=== PATIENT | male | born 1935 | race Caucasian/White ===

== ENCOUNTER 2017-12-07 09:46 | Inpatient (IN) ==
[2017-12-07] MEDS ORDERED: Aspirin 81 MG TAB.CHEW PO ONE (10:07)
--- NOTE | 2017-12-07 10:11 | Emergency Department Note ---
Disposition Clinical Impression: Chest pain Qualifiers: Chest pain type: unspecified Qualified Code(s): R07.9 - Chest pain, unspecified Anemia Qualifiers: Anemia type: unspecified type Qualified Code(s): D64.9 - Anemia, unspecified GI bleed Qualifiers: GI bleed type/associated pathology: unspecified gastrointestinal hemorrhage type Qualified Code(s): K92.2 - Gastrointestinal hemorrhage, unspecified Disposition: Admitted As Inpatient Condition: Fair Referrals: Tyrone Duong MD [Primary Care Provider] - Forms: ED Satisfaction Letter Time of Disposition: 13:45 General Adult HPI - General Chief complaint: ED Shortness of Breath/Dyspnea Stated complaint: Chest Pain/Can't Breathe Time Seen by Provider: 12/07/17 09:50 Source: patient Mode of arrival: ambulatory Limitations: no limitations Nursing Notes Reviewed: Yes Vital Signs Reviewed: Yes - History of Present Illness HPI Narrative: 82-year-old male with a history of CAD status post stents pacemaker presents for evaluation of dyspnea and chest pain. Patient states he has had 2-3 days of worsening shortness of breath. Notes worse with exertion and worse lying back. Patient also notes some chest pressure that started earlier today. Notes to be left-sided with radiation to his left shoulder. Similar to prior heart attack pain. Patient denies any vomiting but does note some nausea. No diaphoresis. Much of the history provided by the family at bedside. Patient was evaluated couple days ago and was sent home on doxycycline as well as steroids. Patient's been taking his medications as instructed. Pain Scale: 0 - Related Data Home Medications Medication Instructions Recorded Confirmed GuaiFENesin ER [Mucinex] 600 mg PO BID PRN 05/26/15 12/07/17 Simvastatin [Zocor] 40 mg PO QPM 05/26/15 12/07/17 Albuterol Sulfate [Proair Hfa] 2 puff IH PRN PRN 10/06/16 12/07/17 Nitroglycerin [Nitrostat] 0.4 mg SL PRN PRN 10/06/16 12/07/17 Aspirin [Lo-Dose Aspirin EC] 81 mg PO DAILY 03/07/17 12/07/17 Esomeprazole Magnesium [Nexium] 40 mg PO DAILY 03/07/17 12/07/17 Fluticasone/Salmeterol [Advair 1 puff IH BID 03/07/17 12/07/17 500-50 Diskus] Rivaroxaban [Xarelto] 20 mg PO DAILY 03/07/17 12/07/17 Enalapril Maleate [Vasotec] 40 mg PO DAILY 05/29/17 12/07/17 Acetaminophen [Tylenol] 500 mg PO Q6HR 11/12/17 12/07/17 Previous Rx's Medication Instructions Recorded Ascorbic Acid [Vitamin C] 500 mg PO DAILY #30 tablet 10/11/17 Ferrous Sulfate 325 mg PO DAILY #30 tablet 10/11/17 Furosemide [Lasix] 20 mg PO Q48H tablet 10/11/17 Lactobacillus [Culturelle] 1 each PO BID #8 cap.sprink 11/13/17 Doxycycline 100 mg PO BID #10 capsule 12/02/17 predniSONE [PredniSONE] 40 mg PO DAILY #10 tablet 12/02/17 Allergies Allergy/AdvReac Type Severity Reaction Status Date / Time naproxen Allergy Swelling Verified 11/10/17 19:20 of Lip/Tongue/Throat aclidinium AdvReac Dizziness Verified 11/10/17 19:20 [From Tudorza Pressair] amlodipine AdvReac Nausea Verified 11/10/17 19:20 fluoxetine AdvReac Hallucinati Verified 11/10/17 19:20 ng lorazepam [From Ativan] AdvReac Nausea Verified 11/10/17 19:20 All systems ED: reviewed and negative except as stated. Constitutional: Denies: fever Cardiovascular: Reports: chest pain Respiratory: Reports: cough. Denies: dyspnea Gastrointestinal: Reports: nausea. Denies: abdominal pain, vomiting Past Medical History - Past Medical History Source: patient, obtained from family Medical history: Reports: COPD, hypertension Surgical history: Reports: coronary bypass (CABG), other Psychiatric history: Reports: anxiety - Social History Smoking Status: Former smoker Smokeless Tobacco Status: No Alcohol use: Reports: none Drug use: Reports: none Physical Exam - General Limitations: no limitations General appearance: alert, in no apparent distress - Head Head exam: atraumatic, normocephalic, normal inspection - Eye Eye exam: Present: normal appearance, PERRL, EOMI - ENT ENT exam: normal exam, normal oropharynx, mucous membranes moist - Neck Neck exam: Present: normal inspection - Chest Chest inspection: Present: normal inspection, symmetric chest wall rise - Respiratory Respiratory exam: Present: wheezes (Upper expiratory), accessory muscle use, prolonged expiratory phase, other (Bilaterally diminished) - Cardiovascular Cardiovascular exam: Present: regular rate, normal rhythm. Absent: systolic murmur - Abdominal Exam Abdominal exam: Present: soft, Non-Tender - Extremities Exam Extremities exam: Present: normal inspection, pedal edema (Trace) - Expanded Lower Extremity Exam Neurovascular/Tendon exam: Present: normal capillary refill - Neurological Exam Neurological exam: Present: alert, oriented X3 - Skin Skin exam: Present: warm, dry, intact, normal color Course Course Narrative: Patient seen and examined. Patient appears to be in moderate discomfort with his work of breathing. Patient will get basic lab work, nitroglycerin, bands as well as chest x-ray. Patient will likely be admission. - Reevaluation(s) Reevaluation #1: Updated on plan of care. Patient will get PCC given Hgb drop and Bedside Positive for occult blood Time: 13:36 Vital Signs Temperature 99.0 F 12/07/17 09:48 Pulse Rate 95 12/07/17 09:48 Respiratory Rate 20 12/07/17 09:48 Blood Pressure 134/58 12/07/17 09:48 O2 Sat by Pulse Oximetry 100 12/07/17 09:48 Temperature 99.0 F 12/07/17 09:48 Pulse Rate 87 12/07/17 13:32 Respiratory Rate 20 12/07/17 13:32 Blood Pressure 94/45 12/07/17 13:32 O2 Sat by Pulse Oximetry 100 12/07/17 13:32 Oxygen Delivery Oxygen Delivery Room Air Medical Decision Making - Lab Data Lab results reviewed: Yes I reviewed the patient's lab results. Result diagrams: 12/07/17 10:54 12/07/17 10:54 Lab Results 12/07/17 12/07/17 12/07/17 Range/Units 10:54 10:54 10:54 WBC 10.3 (4.3-11.1) K/mcL RBC 1.86 L (4.19-5.50) M/mcL Hgb 4.9 L* (12.9-16.9) g/dL Hct 16.5 L (37.5-50.1) % MCV 88.7 (83.0-100.0) fL MCH 26.3 L (28.0-33.3) pg MCHC 29.7 L (31.6-35.5) g/dL RDW 17.6 H (11.5-14.5) % Plt Count 144 (140-400) K/mcL MPV 13.0 H (9.4-12.4) fL Seg Neutrophils % 96.0 % Lymphocytes % 4.0 % Neutrophils # 9.9 H (1.6-8.9) K/mcL Lymphocytes # 0.4 L (0.6-4.6) K/mcL Nucleated RBCs/100 WBC 0.4 H (0) /100 WBC Platelet Estimate Normal (Normal) Hypochromasia Present A (Not Present) Anisocytosis 1+ A (Not Present) PT 33.4 H (9.4-12.1) Seconds INR 3.0 APTT 36.7 H (26.0-36.0) Seconds VBG pH (7.32-7.42) pH Units VBG pCO2 (41-51) mmHg VBG pO2 (25-50) mmHg VBG HCO3 (21-27) mEq/L Sodium (136-145) mEq/L Potassium (3.5-5.1) mEq/L Chloride (98-107) mEq/L Carbon Dioxide (23-29) mEq/L BUN (8-23) mg/dL Creatinine (0.70-1.30) mg/dL Est GFR ( Amer) (> 60) Est GFR (Non-Af Amer) (> 60) BUN/Creatinine Ratio (6-26) Glucose (70-105) mg/dL Calculated Osmolality (280-300) Calcium (8.6-10.3) mg/dL Troponin I (< 0.04) ng/mL B-Natriuretic Peptide 87 (Less than 100) pg/mL Stool Occult Blood (Negative) Blood Type Antibody Screen Crossmatch 12/07/17 12/07/17 12/07/17 Range/Units 10:54 10:54 11:05 WBC (4.3-11.1) K/mcL RBC (4.19-5.50) M/mcL Hgb (12.9-16.9) g/dL Hct (37.5-50.1) % MCV (83.0-100.0) fL MCH (28.0-33.3) pg MCHC (31.6-35.5) g/dL RDW (11.5-14.5) % Plt Count (140-400) K/mcL MPV (9.4-12.4) fL Seg Neutrophils % % Lymphocytes % % Neutrophils # (1.6-8.9) K/mcL Lymphocytes # (0.6-4.6) K/mcL Nucleated RBCs/100 WBC (0) /100 WBC Platelet Estimate (Normal) Hypochromasia (Not Present) Anisocytosis (Not Present) PT (9.4-12.1) Seconds INR APTT (26.0-36.0) Seconds VBG pH 7.44 H (7.32-7.42) pH Units VBG pCO2 35 L (41-51) mmHg VBG pO2 129 H (25-50) mmHg VBG HCO3 24 (21-27) mEq/L Sodium 141 (136-145) mEq/L Potassium 3.8 (3.5-5.1) mEq/L Chloride 107 (98-107) mEq/L Carbon Dioxide 25 (23-29) mEq/L BUN 57 H (8-23) mg/dL Creatinine 1.28 (0.70-1.30) mg/dL Est GFR ( Amer) > 60 (> 60) Est GFR (Non-Af Amer) 54 L (> 60) BUN/Creatinine Ratio 45 H (6-26) Glucose 157 H (70-105) mg/dL Calculated Osmolality 311 H (280-300) Calcium 8.7 (8.6-10.3) mg/dL Troponin I < 0.03 (< 0.04) ng/mL B-Natriuretic Peptide (Less than 100) pg/mL Stool Occult Blood (Negative) Blood Type Antibody Screen Crossmatch 12/07/17 12/07/17 Range/Units 11:45 11:49 WBC (4.3-11.1) K/mcL RBC (4.19-5.50) M/mcL Hgb (12.9-16.9) g/dL Hct (37.5-50.1) % MCV (83.0-100.0) fL MCH (28.0-33.3) pg MCHC (31.6-35.5) g/dL RDW (11.5-14.5) % Plt Count (140-400) K/mcL MPV (9.4-12.4) fL Seg Neutrophils % % Lymphocytes % % Neutrophils # (1.6-8.9) K/mcL Lymphocytes # (0.6-4.6) K/mcL Nucleated RBCs/100 WBC (0) /100 WBC Platelet Estimate (Normal) Hypochromasia (Not Present) Anisocytosis (Not Present) PT (9.4-12.1) Seconds INR APTT (26.0-36.0) Seconds VBG pH (7.32-7.42) pH Units VBG pCO2 (41-51) mmHg VBG pO2 (25-50) mmHg VBG HCO3 (21-27) mEq/L Sodium (136-145) mEq/L Potassium (3.5-5.1) mEq/L Chloride (98-107) mEq/L Carbon Dioxide (23-29) mEq/L BUN (8-23) mg/dL Creatinine (0.70-1.30) mg/dL Est GFR ( Amer) (> 60) Est GFR (Non-Af Amer) (> 60) BUN/Creatinine Ratio (6-26) Glucose (70-105) mg/dL Calculated Osmolality (280-300) Calcium (8.6-10.3) mg/dL Troponin I (< 0.04) ng/mL B-Natriuretic Peptide (Less than 100) pg/mL Stool Occult Blood Negative (Negative) Blood Type O POSITIVE Antibody Screen NEGATIVE Crossmatch See Detail - Radiology Data Radiology results reviewed: Yes I reviewed the patient's radiology results. Chest X-Ray 12/07/17 10:08 IMPRESSION: Mild left basilar opacification with blunting of the left costophrenic angle, which could be related to a pleural effusion. D/ / Germán Calhoun MD / Germán Calhoun MD Interpreting Provider: Germán Calhoun MD - EKG Data EKG #1 EKG attestation: Yes I reviewed and interpreted this EKG. EKG shows normal: sinus rhythm Rate: normal Rhythm: NSR [place]/QRS: normal T wave inversions noted in: II, III, v5, v6 When compared to previous EKG there are: changes noted Interpretation: nonspecific ST-T wave changes S.B.AAmmy - S.Len Situation: Demographics Background: Presenting Complaint Assessment: Vital Signs, Course and respsone to treatment, Patient/Family Expectation Recommendation: Barrier(s) to disposition, Recommendation based on pending studies, treatments, or consults Obdulia Report Given to: Dr. Manas Steiner Repor Time: 13:45 Attestation Statement - Attestation Attestation: I examined this patient and my medical decision-making was reviewed with the Resident Physician. I agree with the documented findings, disposition and treatment plan as described except to the extent set forth below. Patient to ED with shortness of breath and chest pain. Patient states his upper grossly short of breath for the past 4 days. He has been on steroids and doxycycline was prescribed in the ER in [place]. He is getting worse. Today expressed some chest pain into his jaw. This is similar to prior chest pain and is had with MIs. Patient is status post CABG about 10 years ago. Unsure when his last heart catheter was. On examination his lungs are diminished. He is tachypneic. Heart regular. Plan. Cardiac workup. Nebs and steroids. Likely admission. EKG has some new anterolateral ST depressions. Patient with a hemoglobin of 4. He has admitted to dark, tarry stools. Stool Hemoccult sent. Will transfuse. Likely demand ischemia on his EKG. Patient now mildly hypertensive with a systolic blood pressure in the 90s. Blood transfusion starting at this time. Stool Hemoccult reported as negative. I did perform a bedside stool Hemoccult on an old card that is positive. Patient will be given PCC as he has a life-threatening GI bleed and is on Xarelto. 45 minutes of critical care exclusive of separately billed procedures.
[2017-12-07] MEDS ORDERED: Nitroglycerin 1 INCH/GM PACKET TP ONE (10:16)
[2017-12-07] MEDS ORDERED: Ipratropium/Albuterol Neb 3 ML IH ONE (10:17)
[2017-12-07 11:02] LABS: Red Cell Distribution Width 17.6 % (11.5-14.5)
[2017-12-07 11:03] LABS: Hematocrit 16.5 % (37.5-50.1); Mean Corpuscular HGB Conc 29.7 g/dL (31.6-35.5); Mean Corpuscular Hemoglobin 26.3 pg (28.0-33.3); Mean Corpuscular Volume 88.7 fL (83.0-100.0); Nucleated Red Blood Cells 0.4 /100 WBC (0); Platelet Count 144 K/mcL (140-400); Red Blood Count 1.86 M/mcL (4.19-5.50)
[2017-12-07 11:08] LABS: VBG HCO3 24 mEq/L (21-27); VBG PCO2 35 mmHg (41-51); VBG PH 7.44 pH Units (7.32-7.42); VBG PO2 129 mmHg (25-50)
[2017-12-07 11:09] LABS: Prothrombin Time 33.4 Seconds (9.4-12.1)
[2017-12-07 11:11] LABS: Activated Partial Thrombo Time 36.7 Seconds (26.0-36.0)
[2017-12-07 11:35] LABS: BUN/Creatinine Ratio 45 (6-26); Blood Urea Nitrogen 57 mg/dL (8-23); Calcium 8.7 mg/dL (8.6-10.3); Carbon Dioxide 25 mEq/L (23-29); Chloride 107 mEq/L (98-107); Glucose 157 mg/dL (70-105); Osmolality,Calculated 311 (280-300); Potassium 3.8 mEq/L (3.5-5.1); Sodium 141 mEq/L (136-145); eGFR For African Americans > 60 (> 60); eGFR For Non-African Americans 54 (> 60)
[2017-12-07 11:40] LABS: Hemoglobin 4.9 g/dL (12.9-16.9)
[2017-12-07] MEDS ORDERED: Pantoprazole 80 MG in Water for inj. (sterile) 10 ML IVP ONE (12:14)
[2017-12-07 12:23] LABS: Lymphocytes # 0.4 K/mcL (0.6-4.6); Neutrophils # 9.9 K/mcL (1.6-8.9)
[2017-12-07 12:24] LABS: Anisocytosis 1+ (Not Present); Hypochromasia Present (Not Present); Platelet Estimate Normal (Normal)
[2017-12-07] MEDS ORDERED: 0.9 % Sodium Chloride 250 ML ONE ×3 (13:06→23:32)
[2017-12-07] MEDS ORDERED: Furosemide 20 MG/2 ML VIAL IVP ONE ×2 (13:32→20:00)
[2017-12-07 13:57] LABS: Alanine Aminotransferase 11 Units/L (7-52); Albumin 3.2 g/dL (3.5-5.7); Albumin/Globulin Ratio 1.7 (1.1-2.2); Alkaline Phosphatase 42 Units/L (34-104); Aspartate Amino Transferase 8 Units/L (13-39); Bilirubin,Direct 0.1 mg/dL (0.0-0.2); Bilirubin,Indirect 0.3 mg/dL (0.0-1.2); Bilirubin,Total 0.4 mg/dL (0.3-1.0); Globulin 1.9 g/dL (2.4-3.5); Total Protein 5.1 g/dL (6.4-8.9)
[2017-12-07] MEDS ORDERED: ANTI INHIBITOR COAGULANT COMP IV ONE (14:15)
[2017-12-07] MEDS ORDERED: WATER FOR INJ IV ONE (14:15)
[2017-12-07] MEDS ORDERED: *HR* FentaNYL (PF) 100 MCG/2 ML VIAL IVP ONE (16:22)
--- NOTE | 2017-12-07 17:20 | Internal Med History&Physical ---
Date of Encounter: 12/07/17 Time of Encounter: 14:00 Assessment and Plan (1) Acute GI bleeding Current visit: Yes Status: Acute Complains of melena, bedside FOBT was positive, stool was melanotic. He is on anticoagulation with Xarelto for A. fib. We will stop Xarelto. Soft diet tonight. Nothing by mouth past midnight. GI consult. I spoke to gastroenterology, the plan is for upper endoscopy tomorrow. We will start IV Protonix. (2) Coronary artery disease Current visit: Yes Status: Acute Hold aspirin due to GI bleed. Patient is not on a beta reilly. We will provide nitroglycerin when necessary. Qualifiers: Coronary Disease-Associated Artery/Lesion type: bypass graft [place] vs. transplanted heart: [place] heart Associated angina: without angina Qualified Code(s): I25.810 - Atherosclerosis of coronary artery bypass graft(s) without angina pectoris (3) Acute blood loss anemia Current visit: Yes Status: Acute Hemoglobin today is 4.9. Last hemoglobin 10 days ago per his medical record review was 9.6. Transfuse 2 units PRBC in the emergency department. Repeat CBC posttransfusion. Repeat transfusion to maintain hemoglobin above 8. (4) Coagulopathy Current visit: Yes Status: Acute Patient anticoagulated with Xarelto for atrophic relation. We will hold Xarelto. Patient was given PCC in the emergency department to reverse the coagulopathy given active bleed. (5) COPD (chronic obstructive pulmonary disease) Current visit: Yes Status: Acute Inhaled albuterol and ipratropium. Supplemental oxygen. Qualifiers: COPD type: emphysema Emphysema type: unspecified Qualified Code(s): J43.9 - Emphysema, unspecified (6) Chronic respiratory failure with hypoxia Current visit: Yes Status: Acute Oxygen by nasal cannula. (7) DVT prophylaxis Current visit: Yes Status: Acute SCD (8) Hypertension Current visit: No Status: Chronic Hold Vasotec due to risk of hypotension given hypovolemia due to GI bleed. Qualifiers: Hypertension type: essential hypertension Qualified Code(s): I10 - Essential (primary) hypertension Internal Medicine - H&P: HPI Chief complaint: Generalized weakness Admitted From: Emergency Dept Plans for Post Hospital Care: Home History of present illness: Mr. Davidson is a 82 year old male with past medical history significant for hypertension, COPD, chronic hypoxic respiratory failure on home oxygen, CAD status post CABG, atrial fibrillation on chronic anticoagulation who presented to the hospital for shortness of breath. He reports worsening severe shortness of breath for the last 2 days, today he was breathless at rest, worse with exertion. Associated with dizziness which she describes as "my head was on fire ". He also reports black stool that he has been having for months which he thought was normal secondary to iron pills. Denies abdominal pain. He is very hard of hearing and has impaired vision due to macular degeneration. In the emergency department workup revealed a hemoglobin of 4.9. Bedside Hemoccult was positive. On rectal exam stool appeared melanotic. A 10 point review of systems was negative except as stated above. Family history reviewed and noncontributory Social history: Denies tobacco alcohol and drug use, lives at home with family. Past Med Surg Social Fam HX - Past Medical History Medical history: COPD, hypertension Psychiatric history: anxiety - Past Surgical History Surgical History: coronary bypass (CABG), other - Social History Smoking Status: Former smoker Smokeless Tobacco Status: No Alcohol use: none Drug use: none - Family History Father Adopted: No Living Status: Hx Family Cardiac Disorders: Yes (heart attack) Internal Medicine - H&P: Meds GuaiFENesin ER [Mucinex] 600 mg PO BID PRN 05/26/15 [History] Simvastatin [Zocor] 40 mg PO QPM 05/26/15 [History] Albuterol Sulfate [Proair Hfa] 2 puff IH PRN PRN 10/06/16 [History] Nitroglycerin [Nitrostat] 0.4 mg SL PRN PRN 10/06/16 [History] Aspirin [Lo-Dose Aspirin EC] 81 mg PO DAILY 03/07/17 [History] Esomeprazole Magnesium [Nexium] 40 mg PO DAILY 03/07/17 [History] Fluticasone/Salmeterol [Advair 500-50 Diskus] 1 puff IH BID 03/07/17 [History] Rivaroxaban [Xarelto] 20 mg PO DAILY 03/07/17 [History] Enalapril Maleate [Vasotec] 40 mg PO DAILY 05/29/17 [History] Ascorbic Acid [Vitamin C] 500 mg PO DAILY #30 tablet 10/11/17 [Rx] Ferrous Sulfate 325 mg PO DAILY #30 tablet 10/11/17 [Rx] Furosemide [Lasix] 20 mg PO Q48H tablet 10/11/17 [Rx] Acetaminophen [Tylenol] 500 mg PO Q6HR 11/12/17 [History] Lactobacillus [Culturelle] 1 each PO BID #8 cap.sprink 11/13/17 [Rx] Doxycycline 100 mg PO BID #10 capsule 12/02/17 [Rx] predniSONE [PredniSONE] 40 mg PO DAILY #10 tablet 12/02/17 [Rx] 3 Allergy/AdvReac Type Severity Reaction Status Date / Time naproxen Allergy Swelling Verified 11/10/17 19:20 of Lip/Tongue/Throat aclidinium AdvReac Dizziness Verified 11/10/17 19:20 [From Tudorza Pressair] amlodipine AdvReac Nausea Verified 11/10/17 19:20 fluoxetine AdvReac Hallucinati Verified 11/10/17 19:20 ng lorazepam [From Ativan] AdvReac Nausea Verified 11/10/17 19:20 All Systems PM: A 10-system review of systems was performed and is negative for pertinent findings except as documented above in the HPI. - Constitutional Vitals: Temp Pulse Resp BP Pulse Ox 98.1 F 71 20 119/60 100 12/07/17 16:59 12/07/17 16:59 12/07/17 16:59 12/07/17 16:59 12/07/17 16:59 General appearance: Present: A&O X 3, no acute distress - Eye Eye exam: Present: PERRL, conjuntiva pink, sclera anicteric Pupils: Present: PERRL - Neck Neck exam general surgery: Present: supple, trachea midline. Absent: lymphadenopathy - Respiratory Respiratory exam: Present: prolonged expiratory phase, wheezes. Absent: accessory muscle use, rales, rhonchi - Cardiovascular Cardiovascular exam: Present: irregular rhythm, +S1, +S2, systolic murmur, tachycardia. Absent: diastolic murmur, gallop, rubs - GI/Abdominal GI/Abdominal exam: Present: normal bowel sounds, soft, no peritoneal signs. Absent: distended, tenderness - Extremities Exam Extremities exam: Present: warm, radial pulses palpable and symmetrical. Absent : calf tenderness, cyanotic, pedal edema - Neurological Exam Neurological exam: Present: CN II-XII intact, oriented X3, no focal deficits. Absent: pronater drift, facial droop, speech deficit - Skin Skin exam: Present: dry, intact Internal Med - H&P Results - Labs CBC & Chem 7: 12/07/17 10:54 12/07/17 10:54
[2017-12-07] MEDS ORDERED: Naloxone 0.4 MG/ML INJ IVP PRN (17:42)
[2017-12-07] MEDS ORDERED: Acetaminophen 325 MG TABLET PO PRN (17:42)
[2017-12-07] MEDS ORDERED: Nitroglycerin 0.4 MG TAB.SUBL SL PRN (17:58)
[2017-12-07] MEDS ORDERED: Furosemide 20 MG TABLET PO SCH (18:00)
[2017-12-07 18:21] LABS: Basophils % 0.1 %; Hemoglobin 6.4 g/dL (12.9-16.9); Immature Granulocytes % 1.1 % (0-4); Lymphocytes # 1.4 K/mcL (0.6-4.6); Lymphocytes % 12.9 %; Mean Corpuscular HGB Conc 30.5 g/dL (31.6-35.5); Mean Corpuscular Volume 88.6 fL (83.0-100.0); Mean Platelet Volume 13.3 fL (9.4-12.4); Monocytes # 0.6 K/mcL (0.0-1.3); Nucleated Red Blood Cells 0.5 /100 WBC (0); Platelet Count 153 K/mcL (140-400); Red Blood Count 2.37 M/mcL (4.19-5.50); Red Cell Distribution Width 16.9 % (11.5-14.5); Segmented Neutrophils % 80.9 %
[2017-12-07] MEDS: Pantoprazole 40 MG VIAL IVP SCH (19:00)
[2017-12-07] MEDS: Ipratropium/Albuterol Neb 3 ML IH SCH ×2 (20:07→23:27)
[2017-12-07] MEDS: Budesonide/Formoterol 160/4.5 MDI IH SCH (20:07)
[2017-12-07] MEDS ORDERED: Doxycycline 100 MG CAPSULE PO SCH (21:00)
[2017-12-07] MEDS ORDERED: Melatonin 3 MG TABLET PO ONE (21:12)
[2017-12-07 23:29] LABS: Hematocrit 23.8 % (37.5-50.1); Hemoglobin 7.5 g/dL (12.9-16.9)
[2017-12-08] MEDS: Ipratropium/Albuterol Neb 3 ML IH SCH ×6 (04:14→23:12)
[2017-12-08 05:04] LABS: Basophils % 0.1 %; Eosinophils % 0.1 %; Hematocrit 26.6 % (37.5-50.1); Hemoglobin 8.6 g/dL (12.9-16.9); Immature Granulocytes % 0.8 % (0-4); Lymphocytes # 2.5 K/mcL (0.6-4.6); Lymphocytes % 22.5 %; Mean Corpuscular HGB Conc 32.3 g/dL (31.6-35.5); Mean Corpuscular Hemoglobin 28.2 pg (28.0-33.3); Mean Corpuscular Volume 87.2 fL (83.0-100.0); Mean Platelet Volume 12.9 fL (9.4-12.4); Monocytes # 0.7 K/mcL (0.0-1.3); Neutrophils # 7.7 K/mcL (1.6-8.9); Nucleated Red Blood Cells 0.5 /100 WBC (0); Platelet Count 126 K/mcL (140-400); Red Blood Count 3.05 M/mcL (4.19-5.50); Red Cell Distribution Width 15.5 % (11.5-14.5); Segmented Neutrophils % 70.5 %
[2017-12-08 05:14] LABS: Activated Partial Thrombo Time 30.1 Seconds (26.0-36.0); INR 1.3; Prothrombin Time 14.5 Seconds (9.4-12.1)
[2017-12-08] MEDS: Pantoprazole 40 MG VIAL IVP SCH ×2 (05:17→17:11)
[2017-12-08 05:24] LABS: BUN/Creatinine Ratio 34 (6-26); Blood Urea Nitrogen 46 mg/dL (8-23); Calcium 8.6 mg/dL (8.6-10.3); Carbon Dioxide 29 mEq/L (23-29); Chloride 105 mEq/L (98-107); Glucose 101 mg/dL (70-105); Osmolality,Calculated 304 (280-300); Potassium 3.6 mEq/L (3.5-5.1); Sodium 141 mEq/L (136-145); eGFR For African Americans > 60 (> 60); eGFR For Non-African Americans 51 (> 60)
[2017-12-08] MEDS: Budesonide/Formoterol 160/4.5 MDI IH SCH ×2 (08:32→20:22)
--- NOTE | 2017-12-08 10:18 | Electrocardiograph Report ---
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
--- NOTE | 2017-12-08 11:28 | Internal Med Progress Note ---
<John Max - Last Filed: 12/08/17 15:04> Date of Encounter: 12/08/17 Time of Encounter: 11:20 - Assessment and plan (1) Acute GI bleeding Current Visit: Yes Status: Acute Assessment and plan: Reports of melena, bedside FOBT was positive, stool was melanotic. Previously on anticoagulation with Xarelto for A. fib. Holding Xarelto. NPO. GI consulted, plan for EGD today and possible need for colonoscopy. Continue IV Protonix. Continue to monitor H/H, transfuse PRBCs as indicated. (2) Anemia Current Visit: Yes Status: Acute Assessment and plan: Acute blood loss anemia secondary to GI bleed. Recieved 3 units PRBCs. Pending EGD today. See GI bleed for complete plan. Qualifiers: Anemia type: unspecified type Qualified Code(s): D64.9 - Anemia, unspecified (3) COPD (chronic obstructive pulmonary disease) Current Visit: Yes Status: Acute Assessment and plan: Inhaled albuterol and ipratropium. Supplemental oxygen. Qualifiers: COPD type: emphysema Emphysema type: unspecified Qualified Code(s): J43.9 - Emphysema, unspecified (4) Chronic respiratory failure with hypoxia Current Visit: Yes Status: Acute (5) Hypertension Current Visit: No Status: Chronic Assessment and plan: Hold Vasotec due to risk of hypotension given hypovolemia due to GI bleed. Qualifiers: Hypertension type: essential hypertension Qualified Code(s): I10 - Essential (primary) hypertension (6) Coronary artery disease Current Visit: Yes Status: Acute Assessment and plan: Hold aspirin due to GI bleed. Patient is not on a beta reilly. We will provide nitroglycerin when necessary. Qualifiers: Coronary Disease-Associated Artery/Lesion type: bypass graft [place] vs. transplanted heart: [place] heart Associated angina: without angina Qualified Code(s): I25.810 - Atherosclerosis of coronary artery bypass graft(s) without angina pectoris (7) Coagulopathy Current Visit: Yes Status: Acute Assessment and plan: Hold aspirin due to GI bleed. Patient is not on a beta reilly. We will provide nitroglycerin when necessary. (8) DVT prophylaxis Current Visit: Yes Status: Acute Assessment and plan: SCDs - Time Spent With Patient 25 - 35 minutes - Subjective Interval history: Patient notes shortness of breath, stating he has history of COPD, on 2L of continuous home oxygen. Vitals stable with O2 saturation of 97%. Patient wondering if/when he will receive possible scope for his GI bleeding. Denies abdominal pain or chest pain. - Constitutional Vitals: Temp Pulse Resp BP Pulse Ox 97.8 F 79 16 132/66 99 12/08/17 07:00 12/08/17 07:00 12/08/17 08:34 12/08/17 07:00 12/08/17 08:34 General appearance: Present: cooperative, A&O X 3, no acute distress, answers questions appropriately - Head Head exam: Present: atraumatic, normocephalic - Eye Eye exam: Present: EOMI, conjuntiva pink, sclera anicteric - Neck Neck exam general surgery: Present: supple, trachea midline - Respiratory Respiratory exam: Present: wheezes. Absent: accessory muscle use, rales, rhonchi - Cardiovascular Cardiovascular exam: Present: RRR, +S1, +S2. Absent: diastolic murmur, gallop, rubs, systolic murmur - GI/Abdominal GI/Abdominal exam: Present: soft, no peritoneal signs. Absent: distended, tenderness - Extremities Exam Extremities exam: Present: warm. Absent: calf tenderness, cyanotic, pedal edema - Neurological Exam Neurological exam: Present: alert, oriented X3, no focal deficits. Absent: facial droop, speech deficit - Skin Skin exam: Present: dry, intact Internal Medicine: Result - Labs CBC & Chem 7: 12/08/17 04:31 12/08/17 04:31 Labs: Short CBC 12/07/17 12/07/17 12/08/17 Range/Units 18:13 23:11 04:31 WBC 11.1 10.9 (4.3-11.1) K/mcL Hgb 6.4 L D 7.5 L 8.6 L (12.9-16.9) g/dL Hct 21.0 L 23.8 L 26.6 L (37.5-50.1) % Plt Count 153 126 L (140-400) K/mcL Neutrophils # 9.0 H 7.7 (1.6-8.9) K/mcL BMP 12/08/17 04:31 Sodium 141 Potassium 3.6 Chloride 105 Carbon Dioxide 29 BUN 46 H Creatinine 1.34 H Glucose 101 Calcium 8.6 Cardiac Enzymes 12/07/17 12/07/17 Range/Units 18:10 23:11 Troponin I < 0.03 < 0.03 (< 0.04) ng/mL - ABG Interpretation ABG results: PT/INR, D-dimer PT 14.5 Seconds (9.4-12.1) H D 12/08/17 04:31 Consult Discharge Plan - Plan Referrals: Tyrone Duong MD [Primary Care Provider] - <Neeraj Moore - Last Filed: 12/08/17 15:11> Date of Encounter: 12/08/17 - Constitutional Vitals: Temp Pulse Resp BP Pulse Ox 97.8 F 66 16 118/62 99 12/08/17 07:00 12/08/17 12:00 12/08/17 15:05 12/08/17 12:00 12/08/17 15:05 Internal Medicine: Result - Labs CBC & Chem 7: 12/08/17 04:31 12/08/17 04:31 Labs: Short CBC 12/07/17 12/07/17 12/08/17 Range/Units 18:13 23:11 04:31 WBC 11.1 10.9 (4.3-11.1) K/mcL Hgb 6.4 L D 7.5 L 8.6 L (12.9-16.9) g/dL Hct 21.0 L 23.8 L 26.6 L (37.5-50.1) % Plt Count 153 126 L (140-400) K/mcL Neutrophils # 9.0 H 7.7 (1.6-8.9) K/mcL BMP 12/08/17 04:31 Sodium 141 Potassium 3.6 Chloride 105 Carbon Dioxide 29 BUN 46 H Creatinine 1.34 H Glucose 101 Calcium 8.6 Cardiac Enzymes 12/07/17 12/07/17 Range/Units 18:10 23:11 Troponin I < 0.03 < 0.03 (< 0.04) ng/mL - ABG Interpretation ABG results: PT/INR, D-dimer PT 14.5 Seconds (9.4-12.1) H D 12/08/17 04:31 - Attending Attestation Acute blood loss anemia secondary to possibly upper GI bleed exacerbated by Xarelto and aspirin Recheck CBC later today, endoscopy pending, GI to possibly perform a colonoscopy in the morning Consider futher transfusions I examined this patient and my medical decision-making was reviewed with the Resident Physician. I agree with the documented findings, disposition and treatment plan as described except to the extent set forth below.
--- NOTE | 2017-12-08 12:57 | Gastroenterology Consult Note ---
<Alvina Raymundo - Last Filed: 12/08/17 12:55> Date of Encounter: 12/08/17 Time of Encounter: 09:15 - Assessment and plan (1) Melena Status: Acute Assessment and plan: Pt presents with melena and weakness. He is on xarelto and asa at home. Will proceed with EGD today. He may also need colonoscopy. Risks and benefits explained to the patient and his daughter and they verbalize understanding. (2) Anemia Status: Acute Assessment and plan: Monitor H&H, transfuse PRBCs, EGD today possible colonoscopy. Qualifiers: Anemia type: unspecified type Qualified Code(s): D64.9 - Anemia, unspecified - Time Spent With Patient Total time spent is greater than 50% in coordination of care (as documented) at patient's floor/unit and/or counseling patient: GI History of Present Illness - Data of Consult Patient: new to practice Consult date: 12/08/17 Requesting Physician: Neeraj Moore - Consult Narrative Reason for consult: anemia History of present illness: Mr. Davidson is a 82 year old male with past medical history significant for hypertension, COPD, chronic hypoxic respiratory failure on home oxygen, CAD status post CABG, atrial fibrillation on chronic anticoagulation who presented to the hospital for shortness of breath. He reports severe shortness of breath , dizziness and weakness for the past 2 days. His daughter is at the bedside and states he lives alone and normal takes care of himself but has been unable to walk the past 2 days. He reports that he has had black stools for a while but thought it was due to iron pills. He denies hemetemesis or hemetechezia. He denies diarrhea, reports occasional constipation. He complains of nausea but denies any vomiting. He denies abdominal pain. He is on asa and xarelto at home for a history of CAD, s/p CABG.He has a pacemaker. He is very hard of hearing and has impaired vision due to macular degeneration. Hgb was 4.9 on presentation, he has been transfused 3 units PRBCs and Hgb is 6.4. Colonoscopy: states he had a colonoscopy at [place], but no records found EGD: none NsAIDS: asa Anticoagulants: xarelto Past Med Surg Social Fam HX - Past Medical History Medical history: COPD, hypertension Psychiatric history: anxiety - Past Surgical History Surgical History: coronary bypass (CABG), other - Social History Smoking Status: Former smoker Smokeless Tobacco Status: No Alcohol use: none Drug use: none - Family History Father Adopted: No Living Status: Hx Family Cardiac Disorders: Yes (heart attack) Review of Systems: GI: as per [facility] GENERAL: denies fever, has some chills EYES: denies yellow discoloration ENT: denies pain with swallowing or difficulty swallowing CARDIO: reports occasional chest pain, denies palpitations RESP: increased Shortness of breath with exertion : denies change in color of urine NEURO: extreme weakness, and fatique HEME: Denies any bruising MS: chronic back and joint pain. DERM: denies rash or itching PSYCH:history of anxiety and depression - Constitutional Vitals: Temp Pulse Resp BP Pulse Ox 97.8 F 66 19 118/62 99 12/08/17 07:00 12/08/17 12:00 12/08/17 12:00 12/08/17 12:00 12/08/17 12:00 Exam: CONSTITUTIONAL:~alert, no acute distress.~HEAD:~normocephalic.~EYES:~no jaundice.~NECK:~no obvious swelling.~HEART:~regular rate and rhythm, no murmurs , scar mid chest well healed.~LUNGS:~bilateral poor air entry.~ABDOMEN:~non distended, soft, non tender, no masses palpable, no organomegaly.~RECTAL EXAM:~ black stool noted on rectal exam.~EXTREMITIES:~no clubbing, cyanosis or edema.~ SKIN:~pallor noted, no stigmata of chronic liver disease.~NEUROLOGIC:~no obvious focal defect.~~~~ Results - Labs CBC & Chem 7: 12/08/17 04:31 12/08/17 04:31 Labs: Last Result Calcium 8.6 mg/dL (8.6-10.3) 12/08/17 04:31 Troponin I < 0.03 ng/mL (< 0.04) 12/07/17 23:11 Stool Occult Blood Negative (Negative) 12/07/17 11:45 Entire Visit Hgb 8.6 g/dL (12.9-16.9) L 12/08/17 04:31 Hct 26.6 % (37.5-50.1) L 12/08/17 04:31 PT 14.5 Seconds (9.4-12.1) H D 12/08/17 04:31 Total Bilirubin 0.4 mg/dL (0.3-1.0) 12/07/17 10:54 AST 8 Units/L (13-39) L 12/07/17 10:54 ALT 11 Units/L (7-52) 12/07/17 10:54 - ABG ABG results: PT/INR, D-dimer PT 14.5 Seconds (9.4-12.1) H D 12/08/17 04:31 Consult Discharge Plan - Plan Instructions: Chest Pain (DC), Gastrointestinal Bleeding (DC), Gastrointestinal Bleeding (GEN), Colonoscopy (DC), Colonoscopy (GEN), Chronic Obstructive Pulmonary Disease (DC), Upper Gastrointestinal Endoscopy (DC), Chronic Hypertension (DC), Anemia (GEN), Pneumonia (DC) Referrals: Tyrone Duong MD [Primary Care Provider] - <Nader Vela - Last Filed: 12/31/17 10:46> Date of Encounter: 12/08/17 - Time Spent With Patient Total time spent is greater than 50% in coordination of care (as documented) at patient's floor/unit and/or counseling patient: GI History of Present Illness - Data of Consult Requesting Physician: Neeraj Moore - Consult Narrative History of present illness: Mr. Davidson is a 82 year old male - Constitutional Vitals: Temp Pulse Resp BP Pulse Ox 97.9 F 68 18 155/69 98 12/13/17 07:00 12/13/17 07:00 12/13/17 07:00 12/13/17 07:00 12/13/17 07:00 Results - Labs CBC & Chem 7: 12/13/17 05:27 12/12/17 06:48 Labs: Last Result Calcium 8.4 mg/dL (8.6-10.3) L 12/12/17 06:48 Troponin I < 0.03 ng/mL (< 0.04) 12/07/17 23:11 Stool Occult Blood Negative (Negative) 12/07/17 11:45 Entire Visit Hgb 8.3 g/dL (12.9-16.9) L 12/13/17 05:27 Hct 26.9 % (37.5-50.1) L 12/13/17 05:27 PT 14.5 Seconds (9.4-12.1) H D 12/08/17 04:31 Total Bilirubin 0.4 mg/dL (0.3-1.0) 12/07/17 10:54 AST 8 Units/L (13-39) L 12/07/17 10:54 ALT 11 Units/L (7-52) 12/07/17 10:54 - ABG ABG results: PT/INR, D-dimer PT 14.5 Seconds (9.4-12.1) H D 12/08/17 04:31 - Attending Attestation Mr. Mosquera is admitted with severe anemia. He has multiple medical issues which have all been reviewed and reviewed older scans. Agree he needs an upper endoscopy and then will plan a colonoscopy depending on the findings. Thank you very much for this consultation. Further recommendations as well. I have personally performed a face to face evaluation on this patient. I have reviewed and agree with the care plan. History and Exam by me shows:
[2017-12-08 16:19] LABS: Hematocrit 28.5 % (37.5-50.1)
[2017-12-08] MEDS: predniSONE 20 MG TABLET PO SCH (19:12)
[2017-12-08] MEDS ORDERED: Ringers Solution, Lactated 1,000 ML IVC SCH (20:30)
--- NOTE | 2017-12-08 21:58 | Anesthesia Evaluation PreOp ---
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 Significant HX Other Medical History: Denies Any Significant HX Anesthesia History: No Prior Anesthetic Complications Alcohol Use: none Drug use: none Medications and Allergies GuaiFENesin ER [Mucinex] 600 mg PO BID PRN 05/26/15 [History] Simvastatin [Zocor] 40 mg PO QPM 05/26/15 [History] Albuterol Sulfate [Proair Hfa] 2 puff IH PRN PRN 10/06/16 [History] Nitroglycerin [Nitrostat] 0.4 mg SL PRN PRN 10/06/16 [History] Aspirin [Lo-Dose Aspirin EC] 81 mg PO DAILY 03/07/17 [History] Esomeprazole Magnesium [Nexium] 40 mg PO DAILY 03/07/17 [History] Fluticasone/Salmeterol [Advair 500-50 Diskus] 1 puff IH BID 03/07/17 [History] Rivaroxaban [Xarelto] 20 mg PO DAILY 03/07/17 [History] Enalapril Maleate [Vasotec] 40 mg PO DAILY 05/29/17 [History] Ascorbic Acid [Vitamin C] 500 mg PO DAILY #30 tablet 10/11/17 [Rx] Ferrous Sulfate 325 mg PO DAILY #30 tablet 10/11/17 [Rx] Furosemide [Lasix] 20 mg PO Q48H tablet 10/11/17 [Rx] Acetaminophen [Tylenol] 500 mg PO Q6HR 11/12/17 [History] Lactobacillus [Culturelle] 1 each PO BID #8 cap.sprink 11/13/17 [Rx] Doxycycline 100 mg PO BID #10 capsule 12/02/17 [Rx] predniSONE [PredniSONE] 40 mg PO DAILY #10 tablet 12/02/17 [Rx] 3 Allergy/AdvReac Type Severity Reaction Status Date / Time naproxen Allergy Swelling Verified 11/10/17 19:20 of Lip/Tongue/Throat aclidinium AdvReac Dizziness Verified 11/10/17 19:20 [From Tudorza Pressair] amlodipine AdvReac Nausea Verified 11/10/17 19:20 fluoxetine AdvReac Hallucinati Verified 11/10/17 19:20 ng lorazepam [From Ativan] AdvReac Nausea Verified 11/10/17 19:20 - Meds/Allergy Pre-op Review Medications Reviewed: Yes Allergies Reviewed: Yes Beta Blockers on Current Med List: No Anesthesia Results - Labs 12/08/17 16:06 12/08/17 04:31 - Imaging EKG: report reviewed, image reviewed (SINUS RHYTHM WITH OCCASIONAL VENTRICULAR PREMATURE COMPLEXES WITH OCCASIONAL SUPRAVENTRICULAR PREMATURE COMPLEXES ST DEVIATION AND MODERATE T-WAVE ABNORMALITY, CONSIDER INFERIOR ISCHEMIA [-0.1+ mV T WAVE IN II/aVF], present 12/02/17 Electronically Signed On 12-08-2017 10:16: 13 EST by Weston Nevarez MD) Anesthesia Exam Last Vital Signs Temp 98.1 F 12/08/17 20:21 Pulse 75 12/08/17 20:21 Resp 18 12/08/17 20:21 BP 140/79 12/08/17 20:21 Pulse Ox 98 12/08/17 20:21 Weight: 91 kg NPO (# of Hours): > 8 hrs - HEENT Pupil (Motor): Pupils equal, EOMI Mallampati: III Teeth: Edentulous Oral Opening: Greater than 3 - VESSEL OPERATOR LOC: Oriented - Cardiac Rhythm: Regular Murmur: None - Pulmonary Breath Sounds: bilateral Clear Respiratory Effort: Symmetrical Anesthesia Assess/Plan ASA Score: 3 Modified Dagoberto Scale for Level of Consciousness: Cooperative, oriented, and tranquil Anesthetic Plan: MAC Monitoring Plan: Standard Monitors Recovery Plan: PACU
[2017-12-08] MEDS ORDERED: Lidocaine -MPF 2% 2 ML VIAL ONE (22:00)
[2017-12-08] MEDS ORDERED: *HR* Propofol 200 MG/20 ML VIAL IVP ONE (22:00)
--- NOTE | 2017-12-08 22:22 | Anesthesia Evaluation Post Op ---
Date of Encounter: 12/08/17 Time of Encounter: 22:22 - Vital Signs Vital Signs: Last Vital Signs Temp 98.1 F 12/08/17 20:21 Pulse 75 12/08/17 20:21 Resp 18 12/08/17 20:21 BP 140/79 12/08/17 20:21 Pulse Ox 98 12/08/17 20:21 - Lungs Lungs: Clear Ascult./Percussion - Airway Airway: Non-obstructed - Cardiovascular Regular Rate - Mental Status Mental Status: Alert & Oriented, Answers Appropriately - Pain Pain Scale: 1 - Nausea Vomiting Nausea Vomiting: Not Present - Hydration Hydration: NPO - Discharge PostOp Status: Transfer Patient to floor
[2017-12-09] MEDS: Ipratropium/Albuterol Neb 3 ML IH SCH ×5 (03:33→20:00)
[2017-12-09 04:31] LABS: Basophils % 0.2 %; Eosinophils % 0.3 %; Hematocrit 28.5 % (37.5-50.1); Immature Granulocytes % 0.7 % (0-4); Lymphocytes # 1.8 K/mcL (0.6-4.6); Lymphocytes % 19.9 %; Mean Corpuscular HGB Conc 31.6 g/dL (31.6-35.5); Mean Corpuscular Volume 88.8 fL (83.0-100.0); Monocytes # 0.6 K/mcL (0.0-1.3); Monocytes % 6.1 %; Neutrophils # 6.6 K/mcL (1.6-8.9); Nucleated Red Blood Cells 0.3 /100 WBC (0); Platelet Count 134 K/mcL (140-400); Red Blood Count 3.21 M/mcL (4.19-5.50); Red Cell Distribution Width 15.5 % (11.5-14.5); Segmented Neutrophils % 72.8 %
[2017-12-09 05:01] LABS: BUN/Creatinine Ratio 38 (6-26); Blood Urea Nitrogen 40 mg/dL (8-23); Calcium 8.7 mg/dL (8.6-10.3); Carbon Dioxide 28 mEq/L (23-29); Chloride 105 mEq/L (98-107); Glucose 85 mg/dL (70-105); Osmolality,Calculated 299 (280-300); Potassium 3.9 mEq/L (3.5-5.1); Sodium 140 mEq/L (136-145); eGFR For African Americans > 60 (> 60); eGFR For Non-African Americans > 60 (> 60)
[2017-12-09] MEDS: Pantoprazole 40 MG VIAL IVP SCH ×2 (05:01→18:41)
[2017-12-09] MEDS: Budesonide/Formoterol 160/4.5 MDI IH SCH ×2 (08:35→20:00)
[2017-12-09] MEDS: predniSONE 20 MG TABLET PO SCH (11:33)
[2017-12-09] MEDS: Furosemide 20 MG TABLET PO SCH (11:33)
--- NOTE | 2017-12-09 13:58 | Internal Med Progress Note ---
<JulianoMiriam daniel - Last Filed: 12/09/17 13:49> Date of Encounter: 12/09/17 Time of Encounter: 13:50 - Assessment and plan (1) Anemia Current Visit: Yes Status: Acute Assessment and plan: Acute blood loss anemia due to G.I. bleed and setting of anticoagulation. initially came in with hemoglobin of 4.9. Status post transfusion of 3 units red blood cells. EGD on 12/08/17 showed Schatzki ring, 2cm hiatal hernia, chronic gastritis, normal duodenum. Plan: GI plans for colonoscopy monday, take bowel prep tomorrow. continue to monitor H/H transfuse as needed Qualifiers: Anemia type: unspecified type Qualified Code(s): D64.9 - Anemia, unspecified (2) GI bleed Current Visit: Yes Status: Acute Assessment and plan: Plan as above. Qualifiers: GI bleed type/associated pathology: unspecified gastrointestinal hemorrhage type Qualified Code(s): K92.2 - Gastrointestinal hemorrhage, unspecified (3) COPD (chronic obstructive pulmonary disease) Current Visit: Yes Status: Acute Assessment and plan: continue DuoNebs as patient is having wheezing Qualifiers: COPD type: emphysema Emphysema type: unspecified Qualified Code(s): J43.9 - Emphysema, unspecified (4) Chronic respiratory failure with hypoxia Current Visit: Yes Status: Acute Assessment and plan: continue oxygen (5) Hypertension Current Visit: No Status: Chronic Assessment and plan: stable. continue to monitor. Qualifiers: Hypertension type: essential hypertension Qualified Code(s): I10 - Essential (primary) hypertension (6) Coronary artery disease Current Visit: Yes Status: Resolved Qualifiers: Coronary Disease-Associated Artery/Lesion type: bypass graft [place] vs. transplanted heart: [place] heart Associated angina: without angina Qualified Code(s): I25.810 - Atherosclerosis of coronary artery bypass graft(s) without angina pectoris (7) DVT prophylaxis Current Visit: Yes Status: Acute Assessment and plan: SCDs - Subjective Interval history: 82-year-old male evaluated at bedside. Patient denies nausea, vomiting, diarrhea, fever, chills, chest pain. He does admit to shortness of breath. He also reports being very constipated, and his last bowel movement was about 3 days ago. Reports dark/tarry stools. Denies any further complaints today. - Constitutional Vitals: Temp Pulse Resp BP Pulse Ox 97.8 F 109 18 156/80 94 12/09/17 11:37 12/09/17 11:37 12/09/17 11:37 12/09/17 11:37 12/09/17 11:42 General appearance: Present: cooperative, A&O X 3, pleasant, no acute distress, answers questions appropriately - Head Head exam: Present: atraumatic, normocephalic - Neck Neck exam general surgery: Present: supple, trachea midline - Respiratory Respiratory exam: Present: wheezes - Cardiovascular Cardiovascular exam: Present: RRR, +S1, +S2 - GI/Abdominal GI/Abdominal exam: Present: distended, normal bowel sounds. Absent: tenderness - Extremities Exam Extremities exam: Absent: cyanotic, pedal edema - Psychiatric Psychiatric exam: Present: normal affect, normal mood - Skin Skin exam: Present: intact Internal Medicine: Result - Labs CBC & Chem 7: 12/09/17 04:09 12/09/17 04:09 Labs: Short CBC 12/08/17 12/09/17 Range/Units 16:06 04:09 WBC 9.0 (4.3-11.1) K/mcL Hgb 9.0 L 9.0 L (12.9-16.9) g/dL Hct 28.5 L 28.5 L (37.5-50.1) % Plt Count 134 L (140-400) K/mcL Neutrophils # 6.6 (1.6-8.9) K/mcL BMP 12/09/17 04:09 Sodium 140 Potassium 3.9 Chloride 105 Carbon Dioxide 28 BUN 40 H Creatinine 1.05 Glucose 85 Calcium 8.7 - ABG Interpretation ABG results: PT/INR, D-dimer PT 14.5 Seconds (9.4-12.1) H D 12/08/17 04:31 Consult Discharge Plan - Plan Referrals: Tyrone Duong MD [Primary Care Provider] - <Neeraj Moore H - Last Filed: 12/09/17 14:28> Date of Encounter: 12/09/17 - Constitutional Vitals: Temp Pulse Resp BP Pulse Ox 97.8 F 109 18 156/80 94 12/09/17 11:37 12/09/17 11:37 12/09/17 11:37 12/09/17 11:37 12/09/17 11:42 Internal Medicine: Result - Labs CBC & Chem 7: 12/09/17 04:09 12/09/17 04:09 Labs: Short CBC 12/08/17 12/09/17 Range/Units 16:06 04:09 WBC 9.0 (4.3-11.1) K/mcL Hgb 9.0 L 9.0 L (12.9-16.9) g/dL Hct 28.5 L 28.5 L (37.5-50.1) % Plt Count 134 L (140-400) K/mcL Neutrophils # 6.6 (1.6-8.9) K/mcL BMP 12/09/17 04:09 Sodium 140 Potassium 3.9 Chloride 105 Carbon Dioxide 28 BUN 40 H Creatinine 1.05 Glucose 85 Calcium 8.7 - ABG Interpretation ABG results: PT/INR, D-dimer PT 14.5 Seconds (9.4-12.1) H D 12/08/17 04:31 - Attending Attestation Acute blood loss anemia secondary to possible GI bleed, unknown source exacerbated by xarelto Status post 3 units of red blood cells Hold xarelto, monitor CBC Continue omeprazole, colonoscopy on Monday I examined this patient and my medical decision-making was reviewed with the Resident Physician. I agree with the documented findings, disposition and treatment plan as described except to the extent set forth below.
[2017-12-09] MEDS: Sennosides/Docusate Sodium TABLET PO PRN (22:18)
[2017-12-10] MEDS: Ipratropium/Albuterol Neb 3 ML IH SCH ×6 (00:31→19:54)
[2017-12-10 07:50] LABS: Hematocrit 27.3 % (37.5-50.1); Hemoglobin 8.7 g/dL (12.9-16.9)
[2017-12-10] MEDS: Budesonide/Formoterol 160/4.5 MDI IH SCH ×2 (08:01→19:54)
--- NOTE | 2017-12-10 11:33 | Internal Med Progress Note ---
<SeanYordyludmila - Last Filed: 12/10/17 11:30> Date of Encounter: 12/10/17 Time of Encounter: 11:30 - Assessment and plan (1) Anemia Current Visit: Yes Status: Acute Assessment and plan: Acute blood loss anemia due to G.I. bleed and setting of anticoagulation. patient initially came in with hemoglobin of 4.9. Status post transfusion of 3 units red blood cells. EGD on 12/08/17 showed Schatzki ring, 2cm hiatal hernia, chronic gastritis, normal duodenum. Plan: GI plans for colonoscopy tomorrow. start bowel prep. continue to monitor H/H transfuse as needed 20mg dulcolax, start golytely. if rectal effluent not clear by 6am, give two tap water enemas. NPO midnight. patient may drink bowel prep up to 2 hours prior to procedure. Qualifiers: Anemia type: unspecified type Qualified Code(s): D64.9 - Anemia, unspecified (2) GI bleed Current Visit: Yes Status: Acute Assessment and plan: Plan as above. Qualifiers: GI bleed type/associated pathology: unspecified gastrointestinal hemorrhage type Qualified Code(s): K92.2 - Gastrointestinal hemorrhage, unspecified (3) COPD (chronic obstructive pulmonary disease) Current Visit: Yes Status: Acute Assessment and plan: continue DuoNebs as patient is having wheezing Qualifiers: COPD type: emphysema Emphysema type: unspecified Qualified Code(s): J43.9 - Emphysema, unspecified (4) Chronic respiratory failure with hypoxia Current Visit: Yes Status: Acute Assessment and plan: continue oxygen PRN albuterol for wheezing/SOB (5) Hypertension Current Visit: No Status: Chronic Assessment and plan: stable. continue to monitor. Qualifiers: Hypertension type: essential hypertension Qualified Code(s): I10 - Essential (primary) hypertension (6) Coronary artery disease Current Visit: Yes Status: Resolved Qualifiers: Coronary Disease-Associated Artery/Lesion type: bypass graft [place] vs. transplanted heart: [place] heart Associated angina: without angina Qualified Code(s): I25.810 - Atherosclerosis of coronary artery bypass graft(s) without angina pectoris (7) DVT prophylaxis Current Visit: Yes Status: Acute Assessment and plan: SCDs - Subjective Interval history: 82-year-old male evaluated at bedside. Patient denies nausea, vomiting, diarrhea, fever, chills, chest pain. He does admit to shortness of breath. He denies any new problems today. - Constitutional Vitals: Temp Pulse Resp BP Pulse Ox 97.9 F 74 18 140/68 98 12/10/17 07:28 12/10/17 07:28 12/10/17 08:01 12/10/17 07:28 12/10/17 08:01 General appearance: Present: cooperative, A&O X 3, pleasant, no acute distress, answers questions appropriately - Head Head exam: Present: atraumatic, normocephalic - Neck Neck exam general surgery: Present: supple, trachea midline - Respiratory Respiratory exam: Present: wheezes - Cardiovascular Cardiovascular exam: Present: RRR, +S1, +S2 - GI/Abdominal GI/Abdominal exam: Present: distended, hypoactive bowel sounds. Absent: tenderness - Extremities Exam Extremities exam: Absent: cyanotic, pedal edema - Neurological Exam Neurological exam: Present: alert, oriented X3, no focal deficits - Psychiatric Psychiatric exam: Present: normal affect, normal mood - Skin Skin exam: Present: intact Internal Medicine: Result - Labs CBC & Chem 7: 12/10/17 06:43 12/09/17 04:09 Labs: Short CBC 12/10/17 Range/Units 06:43 Hgb 8.7 L (12.9-16.9) g/dL Hct 27.3 L (37.5-50.1) % - ABG Interpretation ABG results: PT/INR, D-dimer PT 14.5 Seconds (9.4-12.1) H D 12/08/17 04:31 Consult Discharge Plan - Plan Referrals: Tyrone Duong MD [Primary Care Provider] - <Neeraj Moore H - Last Filed: 12/10/17 13:42> Date of Encounter: 12/10/17 - Constitutional Vitals: Temp Pulse Resp BP Pulse Ox 97.5 F L 79 18 132/67 96 12/10/17 12:45 12/10/17 12:45 12/10/17 12:45 12/10/17 12:45 12/10/17 12:45 Internal Medicine: Result - Labs CBC & Chem 7: 12/10/17 06:43 12/09/17 04:09 Labs: Short CBC 12/10/17 Range/Units 06:43 Hgb 8.7 L (12.9-16.9) g/dL Hct 27.3 L (37.5-50.1) % - ABG Interpretation ABG results: PT/INR, D-dimer PT 14.5 Seconds (9.4-12.1) H D 12/08/17 04:31 - Attending Attestation Acute blood loss anemia secondary to possible GI bleed, unknown source exacerbated by xarelto Status post 3 units of red blood cells Hold xarelto, monitor CBC Continue IV Protonix, colonoscopy on Monday I examined this patient and my medical decision-making was reviewed with the Resident Physician. I agree with the documented findings, disposition and treatment plan as described except to the extent set forth below.
[2017-12-10] MEDS: Sennosides/Docusate Sodium TABLET PO PRN (12:11)
[2017-12-10] MEDS: predniSONE 20 MG TABLET PO SCH (12:25)
[2017-12-10] MEDS ORDERED: SODIUM CHLORIDE/NAHCO3/KCL/PEG 4,000 ML SOLN.RECON PO ONE (14:00)
[2017-12-10 17:39] LABS: Bilirubin,Urine Negative (Negative); Blood,Urine Large (Negative); Clarity,Urine Cloudy (Clear); Color,Urine Yellow (Yellow); Glucose,Urine (UA) Normal (Normal); Ketones,Urine Negative (Negative); Leukocyte Esterase,Urine Large (Negative); Nitrite,Urine Negative (Negative); Protein,Urine 30 mg/dL (Neg-Trace); Specific Gravity,Urine 1.029 (1.010-1.025); Urobilinogen,Urine Normal (Normal)
[2017-12-10 17:41] LABS: Bacteria,Urine None Seen per hpf (None-Few); Hyaline Casts,Urine Few per lpf (None-Few); Squamous Epithelial Cell,Urine Many per lpf (None-Few); WBC,Urine 50-100 per hpf (0-3)
[2017-12-10 17:51] LABS: Uric Acid Crystals,Urine Present; Yeast,Urine Moderate per hpf (None Seen)
[2017-12-10 17:52] LABS: RBC,Urine 15-30 per hpf (0-3)
[2017-12-10] MEDS: Pantoprazole 40 MG VIAL IVP SCH (18:22)
[2017-12-10] MEDS: cefTRIAXone 1,000 MG in Water for inj. (sterile) 20 ML 10 ML IVP SCH (18:22)
[2017-12-10 20:06] LABS: Hematocrit 31.2 % (37.5-50.1); Hemoglobin 9.7 g/dL (12.9-16.9)
[2017-12-11] MEDS: Ipratropium/Albuterol Neb 3 ML IH SCH ×6 (00:51→20:24)
[2017-12-11 06:19] LABS: Hemoglobin 9.2 g/dL (12.9-16.9)
[2017-12-11] MEDS: Pantoprazole 40 MG VIAL IVP SCH ×2 (07:22→17:15)
[2017-12-11] MEDS: Budesonide/Formoterol 160/4.5 MDI IH SCH ×2 (08:24→20:24)
[2017-12-11] MEDS: cefTRIAXone 1,000 MG in Water for inj. (sterile) 20 ML 10 ML IVP SCH (08:56)
[2017-12-11] MEDS: predniSONE 20 MG TABLET PO SCH (08:58)
[2017-12-11] MEDS: Furosemide 20 MG TABLET PO SCH (08:58)
--- NOTE | 2017-12-11 11:25 | Internal Med Progress Note ---
<John Max - Last Filed: 12/11/17 11:17> Date of Encounter: 12/11/17 Time of Encounter: 09:00 - Assessment and plan (1) Acute GI bleeding Current Visit: Yes Status: Acute Assessment and plan: Acute blood loss anemia due to G.I. bleed and setting of anticoagulation. patient initially came in with hemoglobin of 4.9. Status post transfusion of 3 units red blood cells. EGD on 12/08/17 showed Schatzki ring, 2cm hiatal hernia, chronic gastritis, normal duodenum. Plan: GI plans for colonoscopy today. completed bowel prep, stool not clear, enemas initiated. continue to monitor H/H transfuse as needed NPO pending colonoscopy. (2) Anemia Current Visit: Yes Status: Acute Assessment and plan: Plan as above. Qualifiers: Anemia type: unspecified type Qualified Code(s): D64.9 - Anemia, unspecified (3) COPD (chronic obstructive pulmonary disease) Current Visit: Yes Status: Acute Assessment and plan: continue DuoNebs as patient is having wheezing Qualifiers: COPD type: emphysema Emphysema type: unspecified Qualified Code(s): J43.9 - Emphysema, unspecified (4) Chronic respiratory failure with hypoxia Current Visit: Yes Status: Acute Assessment and plan: continue oxygen PRN albuterol for wheezing/SOB (5) Hypertension Current Visit: No Status: Chronic Assessment and plan: stable. continue to monitor. Qualifiers: Hypertension type: essential hypertension Qualified Code(s): I10 - Essential (primary) hypertension (6) Coronary artery disease Current Visit: Yes Status: Resolved Assessment and plan: Hold aspirin due to GI bleed. Patient is not on a beta reilly. We will provide nitroglycerin when necessary. Qualifiers: Coronary Disease-Associated Artery/Lesion type: bypass graft [place] vs. transplanted heart: [place] heart Associated angina: without angina Qualified Code(s): I25.810 - Atherosclerosis of coronary artery bypass graft(s) without angina pectoris (7) Coagulopathy Current Visit: Yes Status: Acute Assessment and plan: Hold aspirin due to GI bleed. Patient is not on a beta reilly. We will provide nitroglycerin when necessary. (8) DVT prophylaxis Current Visit: Yes Status: Acute Assessment and plan: SCDs - Time Spent With Patient less than 15 minutes - Subjective Interval history: Patient seen and examined, sitting comfortable at bedside. No acute distress, planning for colonoscopy today, patient completed bowel prep, still having dark stools. Patient has received two water enemas this AM. Patient denies any acute complaints or concerns at this time. Denies chest pain or increased dyspnea. Patient remains on 2-2.5L via NC. - Constitutional Vitals: Temp Pulse Resp BP Pulse Ox 98.1 F 70 18 147/73 99 12/11/17 07:00 12/11/17 07:00 12/11/17 11:04 12/11/17 07:00 12/11/17 11:04 General appearance: Present: cooperative, A&O X 3, pleasant, no acute distress, answers questions appropriately - Head Head exam: Present: atraumatic, normocephalic - Eye Eye exam: Present: EOMI, conjuntiva pink - Neck Neck exam general surgery: Present: supple, trachea midline - Respiratory Respiratory exam: Present: wheezes. Absent: accessory muscle use, rales, rhonchi - Cardiovascular Cardiovascular exam: Present: RRR, +S1, +S2. Absent: diastolic murmur, gallop, rubs, systolic murmur - GI/Abdominal GI/Abdominal exam: Present: distended, normal bowel sounds, soft. Absent: tenderness - Extremities Exam Extremities exam: Present: pedal edema (trace bilaterally edema), warm. Absent : calf tenderness, cyanotic - Neurological Exam Neurological exam: Present: alert, oriented X3, no focal deficits. Absent: facial droop, speech deficit - Skin Skin exam: Present: dry, intact Internal Medicine: Result - Labs CBC & Chem 7: 12/11/17 05:46 12/09/17 04:09 Labs: Short CBC 12/10/17 12/11/17 Range/Units 19:52 05:46 Hgb 9.7 L 9.2 L (12.9-16.9) g/dL Hct 31.2 L 30.0 L (37.5-50.1) % Urine 12/10/17 Range/Units 17:00 Urine Color Yellow (Yellow) Urine Clarity Cloudy A (Clear) Urine pH 6.0 (5.0-8.0) pH Units Ur Specific [place] 1.029 H (1.010-1.025) Urine Protein 30 H (Neg-Trace) mg/dL Urine Glucose (UA) Normal (Normal) mg/dL - ABG Interpretation ABG results: PT/INR, D-dimer PT 14.5 Seconds (9.4-12.1) H D 12/08/17 04:31 Consult Discharge Plan - Plan Referrals: Tyrone Duong MD [Primary Care Provider] - <Neeraj Moore - Last Filed: 12/11/17 12:31> Date of Encounter: 12/11/17 - Constitutional Vitals: Temp Pulse Resp BP Pulse Ox 98.1 F 69 18 150/82 99 12/11/17 07:00 12/11/17 11:00 12/11/17 11:04 12/11/17 11:00 12/11/17 11:04 Internal Medicine: Result - Labs CBC & Chem 7: 12/11/17 05:46 12/09/17 04:09 Labs: Short CBC 12/10/17 12/11/17 Range/Units 19:52 05:46 Hgb 9.7 L 9.2 L (12.9-16.9) g/dL Hct 31.2 L 30.0 L (37.5-50.1) % Urine 12/10/17 Range/Units 17:00 Urine Color Yellow (Yellow) Urine Clarity Cloudy A (Clear) Urine pH 6.0 (5.0-8.0) pH Units Ur Specific [place] 1.029 H (1.010-1.025) Urine Protein 30 H (Neg-Trace) mg/dL Urine Glucose (UA) Normal (Normal) mg/dL - ABG Interpretation ABG results: PT/INR, D-dimer PT 14.5 Seconds (9.4-12.1) H D 12/08/17 04:31 - Attending Attestation Acute blood loss anemia secondary to possible GI bleed, unknown source exacerbated by xarelto Status post 3 units of red blood cells Hold xarelto, Upper endoscopy showed chronic gastritis, no acute source of bleeding Continue IV Protonix, colonoscopy today Possible UTI, had pus coming out after Keller catheter was removed Continue Rocephin day #2 I examined this patient and my medical decision-making was reviewed with the Resident Physician. I agree with the documented findings, disposition and treatment plan as described except to the extent set forth below.
--- NOTE | 2017-12-11 13:06 | Anesthesia Evaluation PreOp ---
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 Other Medical History: Denies Any Significant HX Anesthesia History: No Prior Anesthetic Complications, Past Anesthesia Alcohol Use: none Drug use: none Medications and Allergies GuaiFENesin ER [Mucinex] 600 mg PO BID PRN 05/26/15 [History] Simvastatin [Zocor] 40 mg PO QPM 05/26/15 [History] Albuterol Sulfate [Proair Hfa] 2 puff IH PRN PRN 10/06/16 [History] Nitroglycerin [Nitrostat] 0.4 mg SL PRN PRN 10/06/16 [History] Aspirin [Lo-Dose Aspirin EC] 81 mg PO DAILY 03/07/17 [History] Esomeprazole Magnesium [Nexium] 40 mg PO DAILY 03/07/17 [History] Fluticasone/Salmeterol [Advair 500-50 Diskus] 1 puff IH BID 03/07/17 [History] Rivaroxaban [Xarelto] 20 mg PO DAILY 03/07/17 [History] Enalapril Maleate [Vasotec] 40 mg PO DAILY 05/29/17 [History] Ascorbic Acid [Vitamin C] 500 mg PO DAILY #30 tablet 10/11/17 [Rx] Ferrous Sulfate 325 mg PO DAILY #30 tablet 10/11/17 [Rx] Furosemide [Lasix] 20 mg PO Q48H tablet 10/11/17 [Rx] Acetaminophen [Tylenol] 500 mg PO Q6HR 11/12/17 [History] Lactobacillus [Culturelle] 1 each PO BID #8 cap.sprink 11/13/17 [Rx] Doxycycline 100 mg PO BID #10 capsule 12/02/17 [Rx] predniSONE [PredniSONE] 40 mg PO DAILY #10 tablet 12/02/17 [Rx] 3 Allergy/AdvReac Type Severity Reaction Status Date / Time naproxen Allergy Swelling Verified 11/10/17 19:20 of Lip/Tongue/Throat aclidinium AdvReac Dizziness Verified 11/10/17 19:20 [From Tudorza Pressair] amlodipine AdvReac Nausea Verified 11/10/17 19:20 fluoxetine AdvReac Hallucinati Verified 11/10/17 19:20 ng lorazepam [From Ativan] AdvReac Nausea Verified 11/10/17 19:20 - Meds/Allergy Pre-op Review Medications Reviewed: Yes Allergies Reviewed: Yes Beta Blockers on Current Med List: No Anesthesia Results - Labs 12/11/17 05:46 12/09/17 04:09 - Imaging EKG: report reviewed (12/07/2017 SINUS RHYTHM WITH OCCASIONAL VENTRICULAR PREMATURE COMPLEXES WITH OCCASIONAL SUPRAVENTRICULAR PREMATURE COMPLEXES ST DEVIATION AND MODERATE T-WAVE ABNORMALITY, CONSIDER INFERIOR ISCHEMIA [-0.1+ mV T WAVE IN II/aVF], present 12/02/17) Additional studies: 10/02/2015 Echo LVEF 60% mildly enlarged LA mild diastolic dysfunction mildly dilated RV no significant valvular dysfunction evidence of a PFO with agitated saline contrast 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 Gated LVEF = 64%. All myocardial segments displayed normal wall motion. Perfusion imaging was negative for ischemia or infarct. 09/07/2014 Echo Impressions: Technically sub-optimal due to poor echocardiographic windows. LVEF 60-65%. Normal left ventricular structure and function. Mild left ventricular diastolic dysfunction. Normal right ventricular structure and function. No significant valvular dysfunction. No evidence of pulmonary hypertension identified. The aortic root is mildly dilated and measures 4.3 cm. Anesthesia Exam Vital Signs/O2 Sat, Most Current Temp Pulse Resp BP Pulse Ox 98.1 F 69 18 150/82 99 12/11/17 07:00 12/11/17 11:00 12/11/17 11:04 12/11/17 11:00 12/11/17 11:04 Height: 5'6''/1.68 m Weight: 195 lbs/88.5 kg NPO (# of Hours): 8 Pain Scale: 0 Pain Scale Used: Numeric (1 - 10) - HEENT Pupil (Motor): EOMI Mallampati: III Teeth: Edentulous Oral Opening: Greater than 3 - LINOLEUM LAYER HELPER LOC: Oriented LINOLEUM LAYER HELPER Motor: Normal RUE, Normal LUE, Normal RLE, Normal LLE, Normal Face LINOLEUM LAYER HELPER Sensory: Normal: RUE, LUE, RLE, LLE, Face - Cardiac Rhythm: Regular Murmur: None - Pulmonary Breath Sounds: bilateral Clear (wheezes) Respiratory Effort: Symmetrical Anesthesia Assess/Plan ASA Score: 4 Modified Dagoberto Scale for Level of Consciousness: Cooperative, oriented, and tranquil Anesthetic Plan: MAC Monitoring Plan: Standard Monitors
[2017-12-11] MEDS ORDERED: *HR* Propofol 200 MG/20 ML VIAL IVP ONE (13:10)
[2017-12-11] MEDS ORDERED: Lidocaine -MPF 2% 2 ML VIAL ONE (13:14)
[2017-12-11] MEDS ORDERED: 0.9 % Sodium Chloride 1,000 ML IVC SCH (13:15)
[2017-12-12] MEDS: Ipratropium/Albuterol Neb 3 ML IH SCH ×6 (00:59→20:22)
[2017-12-12] MEDS: Pantoprazole 40 MG VIAL IVP SCH (05:48)
[2017-12-12 07:10] LABS: Basophils % 0.1 %; Eosinophils # 0.1 K/mcL (0.0-0.6); Eosinophils % 0.6 %; Hematocrit 27.4 % (37.5-50.1); Hemoglobin 8.6 g/dL (12.9-16.9); Immature Granulocytes % 0.9 % (0-4); Lymphocytes # 2.2 K/mcL (0.6-4.6); Lymphocytes % 21.8 %; Mean Corpuscular HGB Conc 31.4 g/dL (31.6-35.5); Mean Corpuscular Volume 89.3 fL (83.0-100.0); Monocytes # 0.6 K/mcL (0.0-1.3); Monocytes % 6.2 %; Platelet Count 136 K/mcL (140-400); Red Blood Count 3.07 M/mcL (4.19-5.50); Red Cell Distribution Width 15.1 % (11.5-14.5); Segmented Neutrophils % 70.4 %
[2017-12-12] MEDS: Budesonide/Formoterol 160/4.5 MDI IH SCH ×2 (07:24→20:21)
[2017-12-12 07:29] LABS: BUN/Creatinine Ratio 26 (6-26); Blood Urea Nitrogen 26 mg/dL (8-23); Calcium 8.4 mg/dL (8.6-10.3); Carbon Dioxide 28 mEq/L (23-29); Chloride 107 mEq/L (98-107); Glucose 98 mg/dL (70-105); Osmolality,Calculated 293 (280-300); Sodium 139 mEq/L (136-145); eGFR For African Americans > 60 (> 60); eGFR For Non-African Americans > 60 (> 60)
[2017-12-12] MEDS: predniSONE 20 MG TABLET PO SCH (08:28)
[2017-12-12] MEDS: cefTRIAXone 1,000 MG in Water for inj. (sterile) 20 ML 10 ML IVP SCH (08:29)
--- NOTE | 2017-12-12 10:42 | Internal Med Progress Note ---
Date of Encounter: 12/12/17 Time of Encounter: 10:41 - Assessment and plan (1) Acute GI bleeding Current Visit: Yes Status: Acute Assessment and plan: Acute blood loss anemia due to G.I. bleed and setting of anticoagulation. patient initially came in with hemoglobin of 4.9. Status post transfusion of 3 units red blood cells. EGD on 12/08/17 showed Schatzki ring, 2cm hiatal hernia, chronic gastritis, normal duodenum. Colonoscopy is noted for polyp , diverticulae, internal hemorrhoids that were not bleeding, source of bleeding was not yet ascertained Patient's hb today is stable at 8.6 resume home dose of asa 81mg daily Continue to monitor (2) Anemia Current Visit: Yes Status: Acute Assessment and plan: Plan as above. Qualifiers: Anemia type: unspecified type Qualified Code(s): D64.9 - Anemia, unspecified (3) Chronic respiratory failure with hypoxia Current Visit: Yes Status: Chronic Assessment and plan: continue oxygen PRN albuterol for wheezing/SOB (4) Coagulopathy Current Visit: Yes Status: Acute Assessment and plan: Ruled out (5) COPD (chronic obstructive pulmonary disease) Current Visit: Yes Status: Chronic Assessment and plan: continue DuoNebs prn wheezing Qualifiers: COPD type: emphysema Emphysema type: unspecified Qualified Code(s): J43.9 - Emphysema, unspecified (6) Coronary artery disease Current Visit: Yes Status: Chronic Assessment and plan: resume ASA, not on BB. NTG prn Qualifiers: Coronary Disease-Associated Artery/Lesion type: bypass graft [place] vs. transplanted heart: [place] heart Associated angina: without angina Qualified Code(s): I25.810 - Atherosclerosis of coronary artery bypass graft(s) without angina pectoris (7) Hypertension Current Visit: Yes Status: Chronic Assessment and plan: stable. continue to monitor. Qualifiers: Hypertension type: essential hypertension Qualified Code(s): I10 - Essential (primary) hypertension (8) UTI (urinary tract infection) Current Visit: Yes Status: Suspected Assessment and plan: suspected urine culture is pending Continue Rocephin- day 3 Qualifiers: Urinary tract infection type: acute cystitis Hematuria presence: without hematuria Qualified Code(s): N30.00 - Acute cystitis without hematuria - Subjective Interval history: Seen and evaluateda t bedside NO new complains Wants to go home Colonoscopy report noted Said to have had pus in urine yesterday Culture is pending HE is otherwise stable - Constitutional Vitals: Temp Pulse Resp BP Pulse Ox 98 F 66 19 140/73 99 12/12/17 06:40 12/12/17 06:40 12/12/17 07:26 12/12/17 06:40 12/12/17 07:26 General appearance: Present: cooperative, A&O X 3, pleasant, no acute distress, answers questions appropriately - Head Head exam: Present: atraumatic, normocephalic - Eye Eye exam: Present: PERRL, conjuntiva pink, sclera anicteric Pupils: Present: PERRL - Neck Neck exam general surgery: Present: supple, trachea midline. Absent: lymphadenopathy - Respiratory Respiratory exam: Present: CTAB. Absent: accessory muscle use, rales, rhonchi, wheezes - Cardiovascular Cardiovascular exam: Present: RRR, +S1, +S2. Absent: diastolic murmur, gallop, rubs, systolic murmur - GI/Abdominal GI/Abdominal exam: Present: normal bowel sounds, soft, no peritoneal signs. Absent: distended, tenderness - Extremities Exam Extremities exam: Present: warm, radial pulses palpable and symmetrical. Absent : calf tenderness, cyanotic, pedal edema - Neurological Exam Neurological exam: Present: alert, CN II-XII intact, oriented X3, no focal deficits. Absent: pronater drift, facial droop, speech deficit - Skin Skin exam: Present: dry, intact Internal Medicine: Result - Labs CBC & Chem 7: 12/12/17 06:48 12/12/17 06:48 Labs: Short CBC 12/12/17 Range/Units 06:48 WBC 10.0 (4.3-11.1) K/mcL Hgb 8.6 L (12.9-16.9) g/dL Hct 27.4 L (37.5-50.1) % Plt Count 136 L (140-400) K/mcL Neutrophils # 7.0 (1.6-8.9) K/mcL BMP 12/12/17 06:48 Sodium 139 Potassium 4.0 Chloride 107 Carbon Dioxide 28 BUN 26 H Creatinine 1.01 Glucose 98 Calcium 8.4 L - ABG Interpretation ABG results: PT/INR, D-dimer PT 14.5 Seconds (9.4-12.1) H D 12/08/17 04:31 Consult Discharge Plan - Plan Referrals: yTrone Duong MD [Primary Care Provider] -
[2017-12-12] MEDS ORDERED: Furosemide 20 MG/2 ML VIAL IVP ONE (14:30)
[2017-12-12] MEDS: Aspirin Enteric Coated 81 MG Tablet PO SCH (14:39)
[2017-12-13] MEDS: Ipratropium/Albuterol Neb 3 ML IH SCH ×4 (00:39→11:04)
[2017-12-13 06:25] LABS: Basophils % 0.2 %; Eosinophils % 0.2 %; Hematocrit 26.9 % (37.5-50.1); Hemoglobin 8.3 g/dL (12.9-16.9); Lymphocytes # 2.2 K/mcL (0.6-4.6); Lymphocytes % 20.9 %; Mean Corpuscular HGB Conc 30.9 g/dL (31.6-35.5); Mean Corpuscular Hemoglobin 27.8 pg (28.0-33.3); Mean Platelet Volume 13.4 fL (9.4-12.4); Monocytes # 0.6 K/mcL (0.0-1.3); Monocytes % 5.9 %; Neutrophils # 7.5 K/mcL (1.6-8.9); Platelet Count 121 K/mcL (140-400); Red Blood Count 2.99 M/mcL (4.19-5.50); Red Cell Distribution Width 14.8 % (11.5-14.5); Segmented Neutrophils % 71.8 %
[2017-12-13] MEDS ORDERED: Ascorbic Acid 500 MG TABLET PO SCH (07:30)
[2017-12-13 07:53] VITALS: BP 155/69
[2017-12-13] MEDS ORDERED: Amoxicillin 500 MG CAPSULE PO SCH (09:00)
[2017-12-13] MEDS ORDERED: Lisinopril 20 MG TABLET PO SCH (09:00)
[2017-12-13] MEDS: Aspirin Enteric Coated 81 MG Tablet PO SCH (10:15)
[2017-12-13] MEDS: Furosemide 20 MG TABLET PO SCH (10:15)
--- NOTE | 2017-12-13 10:48 | Physician Discharge Referral ---
ExtendedCare Referral Info Transfer To: SNF Provider in Charge: Mary Pierre Provider in Charge after Transfer: PCP Institutional Level of Care: Skilled - Diagnosis (1) Acute GI bleeding Priority: Primary Status: Acute (2) Anemia Priority: Primary Status: Acute (3) Chronic respiratory failure with hypoxia Priority: Secondary Status: Chronic (4) Coagulopathy Priority: Primary Status: Resolved (5) COPD (chronic obstructive pulmonary disease) Priority: Secondary Status: Chronic (6) Coronary artery disease Priority: Secondary Status: Chronic (7) Hypertension Priority: Secondary Status: Chronic (8) UTI (urinary tract infection) Priority: Primary Status: Acute Prognosis: Fair Aware of Diagnosis: Patient, Family Aware of Prognosis: Patient, Family - Transfer Medications Home Medications: GuaiFENesin ER [Mucinex] 600 mg PO BID PRN 05/26/15 [History] Simvastatin [Zocor] 40 mg PO QPM 05/26/15 [History] Albuterol Sulfate [Proair Hfa] 2 puff IH PRN PRN 10/06/16 [History] Nitroglycerin [Nitrostat] 0.4 mg SL PRN PRN 10/06/16 [History] Aspirin [Lo-Dose Aspirin EC] 81 mg PO DAILY 03/07/17 [History] Esomeprazole Magnesium [Nexium] 40 mg PO DAILY 03/07/17 [History] Fluticasone/Salmeterol [Advair 500-50 Diskus] 1 puff IH BID 03/07/17 [History] Enalapril Maleate [Vasotec] 40 mg PO DAILY 05/29/17 [History] Ascorbic Acid [Vitamin C] 500 mg PO DAILY #30 tablet 10/11/17 [Rx] Ferrous Sulfate 325 mg PO DAILY #30 tablet 10/11/17 [Rx] Furosemide [Lasix] 20 mg PO Q48H tablet 10/11/17 [Rx] Acetaminophen [Tylenol] 500 mg PO Q6HR 11/12/17 [History] Lactobacillus [Culturelle] 1 each PO BID #8 cap.sprink 11/13/17 [Rx] Ipratropium/Albuterol Neb [Duoneb] 3 ml IH [id number] inhsol 12/13/17 [Rx] Sennosides/Docusate Sodium [Senna Plus] 1 each PO DAILY PRN tablet 12/13/17 [Rx ] Allergies/Adverse Reactions: 3 Allergy/AdvReac Type Severity Reaction Status Date / Time naproxen Allergy Swelling Verified 11/10/17 19:20 of Lip/Tongue/Throat aclidinium AdvReac Dizziness Verified 11/10/17 19:20 [From Tudorza Pressair] amlodipine AdvReac Nausea Verified 11/10/17 19:20 fluoxetine AdvReac Hallucinati Verified 11/10/17 19:20 ng lorazepam [From Ativan] AdvReac Nausea Verified 11/10/17 19:20 - Respiratory Orders Oxygen / L per min (2-3 L per minute) Smoking Cessation: Smoking cessation has been advised. For more information, call the [employer] Tobacco Quit Line at 7-064-LPDSNOW. - Advance Directives Code Status: DNR-Arrest/Don't Intubate - Mobility Orders Ambulate - Rehabiliation Orders Rehab Potential: Fair - Diet Orders Cardiac CERTIFICATION: I certify that the transfer of the above named patient to an Extended Care Facility is necessary for the continuing treatment of the diagnosis listed. The above information is true and accurate reflection of patient's current condition. Confidential - Redisclosure prohibited without a patient's written consent.
--- NOTE | 2017-12-13 10:51 | Discharge Summary ---
- NOTES TO OUTPATIENT PROVIDER Notes to Outpatient Provider: Patient was admitted for acute anemia, with a hemoglobin of 4.9, requiring 3 units of blood transfusion. Xarelto Has been discontinued. Patient will be continued on aspirin. Discussion of further anticoagulation in light of risk of GI bleed should be discussed with the patient as outpatient. At this time, the risk of bleeding supersedes the risk of stroke. Orders not resulted at time of discharge: Pending orders 12/11/17 14:16 Surgical Pathology [PTH] Routine Pathology 12/11/17 14:16 Surgical Pathology [PTH] Routine Comment: Department: Surgical Pathology Specimen: Has been collected Specimen placed in fixative?: Yes Tissue Removal Time:: 14:15 Tissue Fixative Time:: 14:15 DATE CHICA:: 12/11/17 Collected At:: 145.00 PRE-OP DIAGNOSIS:: anemia POST-OP DIAGNOSIS:: polyp, hemorrhoids, diverticulosis SPECIMEN & SITE: 1: ascening colon polyp Date of Encounter: 12/13/17 Time of Encounter: 09:20 - Discharge Diagnosis (1) Acute GI bleeding Priority: Primary Status: Acute (2) Anemia Priority: Primary Status: Acute Qualifiers: Anemia type: unspecified type Qualified Code(s): D64.9 - Anemia, unspecified (3) Chronic respiratory failure with hypoxia Priority: Secondary Status: Chronic (4) Coagulopathy Priority: Primary Status: Resolved (5) COPD (chronic obstructive pulmonary disease) Priority: Secondary Status: 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 transplanted heart: [place] heart Associated angina: without angina Qualified Code(s): I25.810 - Atherosclerosis of coronary artery bypass graft(s) without angina pectoris (7) Hypertension Priority: Secondary Status: Chronic Qualifiers: Hypertension type: essential hypertension Qualified Code(s): I10 - Essential (primary) hypertension (8) UTI (urinary tract infection) Priority: Primary Status: Acute Qualifiers: Urinary tract infection type: acute cystitis Hematuria presence: without hematuria Qualified Code(s): N30.00 - Acute cystitis without hematuria (9) Afib Priority: Secondary Status: Chronic Qualifiers: Atrial fibrillation type: chronic Qualified Code(s): I48.2 - Chronic atrial fibrillation Hospital course: Mr. Davidson is a 82 year old male past medical history significant for hypertension, COPD, chronic hypoxic respiratory failure on home oxygen, CAD status post CABG, atrial fibrillation on chronic anticoagulation who presented to the hospital for worsening shortness of breath 2 days prior to presentation. There is associated dizziness and melena stools for several months.In the emergency department workup revealed a hemoglobin of 4.9. Bedside Hemoccult was positive. On rectal exam stool appeared melanotic. The patient was admitted for acute blood loss anemia, symptomatic, suspected secondary to GI bleed. His laboratory was held, the patient was placed nothing by mouth. He was transfused with GERD cells 3. Tolerated. Appropriate hemoglobin response. EGD on 12/08/17 showed Schatzki ring, 2cm hiatal hernia, chronic gastritis, normal duodenum. On 12/10/17, patient was noted to have pus coming out of his Keller catheter when it was removed. Urine analysis and urine culture was sent, and patient was started on empiric ceftriaxone daily. Colonoscopy is noted for polyp , diverticulae, internal hemorrhoids that were not bleeding, source of bleeding was not yet ascertained, suspect patient may have bled from gastritis, versus a small intestinal bleed. Urine culture is finalized and is growing enterococcus species sensitive to ampicillin, nitrofurantoin, Zyvox, and vancomycin. The patient's antibiotics was changed to ampicillin by mouth. On evaluation this morning, the patient has no new complaints, the patient also had anymore melena stools, he has no abdominal symptoms, has no shortness of breath has no chest pain. The patient was educated upon discontinuation of Xarelto, we will continue aspirin only at this time. 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 Plan of care was discussed with patient verbalizes understanding. Discharge discussed with: patient - Time Spent with Patient Total time spent providing and/or coordinating discharge services: Greater than 30 minutes Specific discharge activities: face to face encounter, education, med rec, documentatin, discussion with case management - Discharge Medications Home Medications: GuaiFENesin ER [Mucinex] 600 mg PO BID PRN 05/26/15 [History] Simvastatin [Zocor] 40 mg PO QPM 05/26/15 [History] Albuterol Sulfate [Proair Hfa] 2 puff IH PRN PRN 10/06/16 [History] Nitroglycerin [Nitrostat] 0.4 mg SL PRN PRN 10/06/16 [History] Aspirin [Lo-Dose Aspirin EC] 81 mg PO DAILY 03/07/17 [History] Esomeprazole Magnesium [Nexium] 40 mg PO DAILY 03/07/17 [History] Fluticasone/Salmeterol [Advair 500-50 Diskus] 1 puff IH BID 03/07/17 [History] Enalapril Maleate [Vasotec] 40 mg PO DAILY 05/29/17 [History] Ascorbic Acid [Vitamin C] 500 mg PO DAILY #30 tablet 10/11/17 [Rx] Ferrous Sulfate 325 mg PO DAILY #30 tablet 10/11/17 [Rx] Furosemide [Lasix] 20 mg PO Q48H tablet 10/11/17 [Rx] Acetaminophen [Tylenol] 500 mg PO Q6HR 11/12/17 [History] Lactobacillus [Culturelle] 1 each PO BID #8 cap.sprink 11/13/17 [Rx] Ipratropium/Albuterol Neb [Duoneb] 3 ml IH [id number] inhsol 12/13/17 [Rx] Sennosides/Docusate Sodium [Senna Plus] 1 each PO DAILY PRN tablet 12/13/17 [Rx ] Allergies/Adverse Reactions: 3 Allergy/AdvReac Type Severity Reaction Status Date / Time naproxen Allergy Swelling Verified 11/10/17 19:20 of Lip/Tongue/Throat aclidinium AdvReac Dizziness Verified 11/10/17 19:20 [From Tudorza Pressair] amlodipine AdvReac Nausea Verified 11/10/17 19:20 fluoxetine AdvReac Hallucinati Verified 11/10/17 19:20 ng lorazepam [From Ativan] AdvReac Nausea Verified 11/10/17 19:20 Date of admission: 12/07/17 17:42 Primary care physician: Tyrone Duong MD Consults: 12/08/17 13:04 Consult to Genetic Supervisor [CONS] Routine Reason for SW Consult: PT/OT rec SNF; patient agreeable; poss d/c Monday Discharging clinician: Doni Pierre Anticipated date of discharge: 12/13/17 - Constitutional Vitals: Temp Pulse Resp BP Pulse Ox 97.9 F 68 18 155/69 98 12/13/17 07:00 12/13/17 07:00 12/13/17 07:00 12/13/17 07:00 12/13/17 07:00 General appearance: Present: cooperative, A&O X 3, pleasant, no acute distress, answers questions appropriately - Head Head exam: Present: atraumatic, normocephalic - Eye Eye exam: Present: PERRL, conjuntiva pink, sclera anicteric Pupils: Present: PERRL - Neck Neck exam general surgery: Present: supple, trachea midline. Absent: lymphadenopathy - Respiratory Respiratory exam: Present: CTAB. Absent: accessory muscle use, rales, rhonchi, wheezes - Cardiovascular Cardiovascular exam: Present: RRR, +S1, +S2. Absent: diastolic murmur, gallop, rubs, systolic murmur - GI/Abdominal GI/Abdominal exam: Present: normal bowel sounds, soft, no peritoneal signs. Absent: distended, tenderness - Extremities Exam Extremities exam: Present: warm, radial pulses palpable and symmetrical. Absent : calf tenderness, cyanotic, pedal edema - Neurological Exam Neurological exam: Present: alert, CN II-XII intact, oriented X3, no focal deficits. Absent: pronater drift, facial droop, speech deficit - Skin Skin exam: Present: dry, intact - Patient Status Disposition: Transfer SNF Condition: Good Functional capacity at discharge: independent ambulation - Discharge Instructions Instructions: Chest Pain (DC), Gastrointestinal Bleeding (DC), Gastrointestinal Bleeding (GEN), Colonoscopy (DC), Colonoscopy (GEN), Chronic Obstructive Pulmonary Disease (DC), Upper Gastrointestinal Endoscopy (DC), Chronic Hypertension (DC), Anemia (GEN), Pneumonia (DC) Follow Up With: Tyrone Duong MD [Primary Care Provider] - - Diet and Activity Activity: resume usual activities as tolerated, wear oxygen at all times Diet: low fat, low cholesterol, low salt diet
[2017-12-13] MEDS: Budesonide/Formoterol 160/4.5 MDI IH SCH (11:04)
== END 2017-12-13 13:45 | DRG 378 ==
LOC: 2NENU 09:46 → EMEROO 09:46 → 2NENU 17:18 → SUATTDRO 17:42
PROVIDERS: ADMIT Internal Medicine; ATTEND Internal Medicine
PROC: ENDOCBX (2017-12-11 13:20)

== ENCOUNTER 2018-01-17 14:27 | Inpatient (IN) ==
[2018-01-17] MEDS ORDERED: methylPREDNISolone 125 MG/2 ML VIAL IVP ONE (14:55)
[2018-01-17] MEDS ORDERED: Ipratropium/Albuterol Neb 3 ML IH ONE (14:55)
[2018-01-17 15:40] LABS: Hematocrit 33.6 % (37.5-50.1); Hemoglobin 10.6 g/dL (12.9-16.9); Lymphocytes # 0.5 K/mcL (0.6-4.6); Mean Corpuscular HGB Conc 31.5 g/dL (31.6-35.5); Mean Corpuscular Hemoglobin 27.2 pg (28.0-33.3); Mean Corpuscular Volume 86.2 fL (83.0-100.0); Mean Platelet Volume 12.9 fL (9.4-12.4); Monocytes # 0.2 K/mcL (0.0-1.3); Monocytes % 2.3 %; Neutrophils # 7.1 K/mcL (1.6-8.9); Platelet Count 182 K/mcL (140-400); Red Cell Distribution Width 14.7 % (11.5-14.5); Segmented Neutrophils % 90.7 %
[2018-01-17 15:44] LABS: INR 1.3; Prothrombin Time 14.3 Seconds (9.4-12.1)
[2018-01-17 15:57] LABS: BUN/Creatinine Ratio 20 (6-26); Blood Urea Nitrogen 24 mg/dL (8-23); Calcium 8.9 mg/dL (8.6-10.3); Carbon Dioxide 26 mEq/L (23-29); Chloride 104 mEq/L (98-107); Glucose 155 mg/dL (70-105); Osmolality,Calculated 293 (280-300); Potassium 4.1 mEq/L (3.5-5.1); Sodium 138 mEq/L (136-145); Troponin I < 0.03 ng/mL (< 0.04); eGFR For African Americans > 60 (> 60); eGFR For Non-African Americans 58 (> 60)
[2018-01-17 16:02] LABS: ABG Base Excess 4 mEq/L (-2 to 3); ABG HCO3 28 mEq/L (21-27); ABG Oxygen Saturation 99 % (95-98); ABG PCO2 42 mmHg (35-45); ABG PH 7.44 pH Units (7.32-7.45); ABG PO2 111 mmHg (85-104); ABG TCO2 30 mEq/L (20-26); Blood Gas Modality BiLevel; Blood Gas PEEP 6 cm H2O; Blood Gas Pressure Support 12 cm H2O
--- NOTE | 2018-01-17 16:45 | Emergency Department Note ---
Disposition Clinical Impression: HCAP (healthcare-associated pneumonia), COPD exacerbation Disposition: Admitted As Inpatient Condition: Fair Time of Disposition: 19:38 SOB HPI - General Chief Complaint: ED Shortness of Breath/Dyspnea Stated Complaint: BRANDON Time Seen by Provider: 01/17/18 14:48 Source: patient, family Mode of arrival: ambulatory Limitations: no limitations Nursing Notes Reviewed: Yes Vital Signs Reviewed: Yes - History of Present Illness 82-year-old male presented to the emergency department complaining of shortness of breath. Patient does have history of GI bleed. He said it was a lower GI bleed where it was taking care of here. Patient does have history of COPD has also had heart problems as well. Patient says that he does have BiPAP at home has been using it also has nebulizing treatments. Family says they have been urgent care for similar issues but not found any source is. Patient otherwise is having no complaints including no headaches, blurry vision, neck pain, back pain, fevers, chills, nausea, vomiting, chest pain, abdominal pain, changes in bowel movement, pain with urination, pain or tingling going down the arms or legs or generalized weakness. - Related Data Home Medications Medication Instructions Recorded Confirmed GuaiFENesin ER [Mucinex] 600 mg PO BID PRN 05/26/15 01/07/18 Simvastatin [Zocor] 40 mg PO QPM 05/26/15 01/07/18 Albuterol Sulfate [Proair Hfa] 2 puff IH PRN PRN 10/06/16 01/07/18 Nitroglycerin [Nitrostat] 0.4 mg SL PRN PRN 10/06/16 01/07/18 Aspirin [Lo-Dose Aspirin EC] 81 mg PO DAILY 03/07/17 01/07/18 Esomeprazole Magnesium [Nexium] 40 mg PO DAILY 03/07/17 01/07/18 Fluticasone/Salmeterol [Advair 1 puff IH BID 03/07/17 01/07/18 500-50 Diskus] Enalapril Maleate [Vasotec] 40 mg PO DAILY 05/29/17 01/07/18 Acetaminophen [Tylenol] 500 mg PO Q6HR 11/12/17 01/07/18 Previous Rx's Medication Instructions Recorded Ascorbic Acid [Vitamin C] 500 mg PO DAILY #30 tablet 10/11/17 Ferrous Sulfate 325 mg PO DAILY #30 tablet 10/11/17 Furosemide [Lasix] 20 mg PO Q48H tablet 10/11/17 Lactobacillus [Culturelle] 1 each PO BID #8 cap.sprink 11/13/17 Ipratropium/Albuterol Neb [Duoneb] 3 ml IH [id number] inhsol 12/13/17 Sennosides/Docusate Sodium [Senna 1 each PO DAILY PRN tablet 12/13/17 Plus] Allergies Allergy/AdvReac Type Severity Reaction Status Date / Time naproxen Allergy Swelling Verified 01/07/18 12:35 of Lip/Tongue/Throat aclidinium AdvReac Dizziness Verified 01/07/18 12:35 [From Tudorza Pressair] amlodipine AdvReac Nausea Verified 01/07/18 12:35 fluoxetine AdvReac Hallucinati Verified 01/07/18 12:35 ng lorazepam [From Ativan] AdvReac Nausea Verified 01/07/18 12:35 Review of Systems: 10 point review of systems done and negative unless otherwise stated in the history of present illness. All systems ED: reviewed and negative except as stated. Review of Systems: As Per HPI Past Medical History - Past Medical History Attestation: Yes The following information was validated with the patient. Source: patient Medical history: Reports: COPD, GI bleed, hyperlipidemia, hypertension, myocardial infarction Surgical history: Reports: coronary bypass (CABG), pacemaker/AICD, other Psychiatric history: Reports: anxiety - Social History Smoking Status: Never smoker Smokeless Tobacco Status: No Alcohol use: Reports: none Drug use: Reports: none Physical Exam - General Limitations: no limitations General appearance: alert - Head Head exam: atraumatic, normocephalic, normal inspection - Eye Eye exam: Present: normal appearance, PERRL, EOMI - ENT ENT exam: normal exam, normal oropharynx, mucous membranes moist - Neck Neck exam: Present: normal inspection, full ROM, trachea midline - Chest Chest inspection: Present: normal inspection, symmetric chest wall rise - Respiratory Respiratory exam: Present: normal lung sounds bilaterally, respiratory distress (Patient is in mild respiratory distress while listening to them there is decreased lung movement bilaterally in the lower lobes.), wheezes, accessory muscle use, prolonged expiratory phase. Absent: stridor - Cardiovascular Cardiovascular exam: Present: regular rate, normal rhythm, normal heart sounds - Abdominal Exam Abdominal exam: Present: soft, Non-Tender, normal bowel sounds. Absent: tenderness, distention, guarding, rebound, rigidity - Extremities Exam Extremities exam: Present: normal inspection, full ROM. Absent: tenderness, pedal edema - Back Exam Back exam: Present: normal inspection, full ROM. Absent: tenderness, CVA tenderness (R), CVA tenderness (L) - Neurological Exam Neurological exam: Present: alert, oriented X3 - Skin Skin exam: Present: warm, dry, intact, normal color Course Course Narrative: 82-year-old male presented to the emergency department in respiratory distress. We will place patient mutely on BiPAP. We will give albuterol treatments. We will do basic labs including CBC, CMP, lactate, ABG as well as EKG and chest x-ray. We will also do CT Josephine chest rule out pulmonary embolus and. We will give him steroids. Patient's okay at this plan most likely disposition will be admission. Vital Signs Temperature 98.2 F 01/17/18 14:41 Pulse Rate 96 01/17/18 14:41 Respiratory Rate 20 01/17/18 14:41 Blood Pressure 123/73 01/17/18 14:41 O2 Sat by Pulse Oximetry 94 01/17/18 14:41 Temperature 98.2 F 01/17/18 14:41 Pulse Rate 80 01/17/18 19:45 Respiratory Rate 20 01/17/18 19:45 Blood Pressure 142/72 01/17/18 19:45 O2 Sat by Pulse Oximetry 97 01/17/18 19:45 Oxygen Delivery Oxygen Delivery Nasal Cannula Shortness of Breath/Dyspnea - [facility] Narrative Medical decision making narrative: 82-year-old male presented emergency department complaining of shortness of breath. When he arrived here he was very short of breath almost and was very distressed placed patient immediately on BiPAP. Respiratory was called we did give him trouble DuoNeb treatment as well as give IV steroids. We did do basic labs including ABG this BACK NORMAL. LABS ARE NORMAL. I DID CHECK A HEMOCCULT WAS THEY ARE WORRIED ABOUT HIS DARK STOOLS THIS CAME BACK NEGATIVE FOR ANY BLOOD IN THE STOOL. WE DID DO A CT ANGIOGRAM OF THE CHEST PATIENT WAS TACHYCARDIC TO RULE OUT PULMONARY EMBOLISM THIS DID SHOW BILATERAL BASAL PNEUMONIA. DUE TO PATIENT RECENTLY BEING ADMITTED TO THE HOSPITAL WE WILL TREAT HIM WITH BROAD-SPECTRUM antiBIOTICS INCLUDING LEVAQUIN, ZOSYN, VANCOMYCIN. Patient is coming off BiPAP as his breathing was much better his pulse ox stayed at 95%. Patient does have oxygen at home and also breathing treatments at home. Due to this hospital-acquired pneumonia we felt that admission with IV antibiotics was necessary for at least an overnight his observation. I spoke with the hospitalist Dr. Deal who agreed to admit the patient to their service. Patient is admitted in stable condition at this time. Chest X-Ray 01/17/18 14:55 IMPRESSION: 1. No active pulmonary disease. D/ / Soren Owens MD / Soren Owens MD Interpreting Provider: Soren Owens MD Chest CTA 01/17/18 14:57 IMPRESSION: No CT evidence pulmonary embolism. Bilateral lower lobe airspace disease, likely pneumonia. Given areas of nodular consolidation within the left lower lobe, a short-term follow-up CT following treatment is recommended to exclude underlying lesion. D/ / Fauzia Taveras Cha, MD / Fauzia Taveras Cha, MD Interpreting Provider: Fauzia Taveras Cha, MD - Medical Records Medical records reviewed: Yes I reviewed the patient's medical records. - Lab Data Lab results reviewed: Yes I reviewed the patient's lab results. Result diagrams: 01/17/18 15:10 01/17/18 15:10 Lab Results 01/17/18 01/17/18 01/17/18 Range/Units 15:10 15:10 15:10 WBC 7.8 (4.3-11.1) K/mcL RBC 3.90 L (4.19-5.50) M/mcL Hgb 10.6 L (12.9-16.9) g/dL Hct 33.6 L (37.5-50.1) % MCV 86.2 (83.0-100.0) fL MCH 27.2 L (28.0-33.3) pg MCHC 31.5 L (31.6-35.5) g/dL RDW 14.7 H (11.5-14.5) % Plt Count 182 (140-400) K/mcL MPV 12.9 H (9.4-12.4) fL Immature Gran % 1.0 (0-4) % Seg Neutrophils % 90.7 % Lymphocytes % 6.0 % Monocytes % 2.3 % Eosinophils % 0.0 % Basophils % 0.0 % Neutrophils # 7.1 (1.6-8.9) K/mcL Lymphocytes # 0.5 L (0.6-4.6) K/mcL Monocytes # 0.2 (0.0-1.3) K/mcL Eosinophils # 0.0 (0.0-0.6) K/mcL Basophils # 0.0 (0.0-0.2) K/mcL PT 14.3 H (9.4-12.1) Seconds INR 1.3 ABG pH (7.32-7.45) pH Units ABG pCO2 (35-45) mmHg ABG pO2 (85-104) mmHg ABG HCO3 (21-27) mEq/L ABG Total CO2 (20-26) mEq/L ABG O2 Saturation (95-98) % ABG Base Excess (-2 to 3) mEq/L O2 Delivery Device Blood Gas Modality Inspired O2 (1-15=lpm [id number]=%) PEEP cm H2O Pressure Support cm H2O Sodium 138 (136-145) mEq/L Potassium 4.1 (3.5-5.1) mEq/L Chloride 104 (98-107) mEq/L Carbon Dioxide 26 (23-29) mEq/L BUN 24 H (8-23) mg/dL Creatinine 1.21 (0.70-1.30) mg/dL Est GFR ( Amer) > 60 (> 60) Est GFR (Non-Af Amer) 58 L (> 60) BUN/Creatinine Ratio 20 (6-26) Glucose 155 H (70-105) mg/dL Calculated Osmolality 293 (280-300) Lactic Acid (0.5-2.2) mmol/L Calcium 8.9 (8.6-10.3) mg/dL Troponin I < 0.03 (< 0.04) ng/mL B-Natriuretic Peptide (Less than 100) pg/mL 01/17/18 01/17/18 01/17/18 Range/Units 15:10 15:10 15:59 WBC (4.3-11.1) K/mcL RBC (4.19-5.50) M/mcL Hgb (12.9-16.9) g/dL Hct (37.5-50.1) % MCV (83.0-100.0) fL MCH (28.0-33.3) pg MCHC (31.6-35.5) g/dL RDW (11.5-14.5) % Plt Count (140-400) K/mcL MPV (9.4-12.4) fL Immature Gran % (0-4) % Seg Neutrophils % % Lymphocytes % % Monocytes % % Eosinophils % % Basophils % % Neutrophils # (1.6-8.9) K/mcL Lymphocytes # (0.6-4.6) K/mcL Monocytes # (0.0-1.3) K/mcL Eosinophils # (0.0-0.6) K/mcL Basophils # (0.0-0.2) K/mcL PT (9.4-12.1) Seconds INR ABG pH 7.44 (7.32-7.45) pH Units ABG pCO2 42 (35-45) mmHg ABG pO2 111 H (85-104) mmHg ABG HCO3 28 H (21-27) mEq/L ABG Total CO2 30 H (20-26) mEq/L ABG O2 Saturation 99 H (95-98) % ABG Base Excess 4 H (-2 to 3) mEq/L O2 Delivery Device BiPAP Blood Gas Modality BiLevel Inspired O2 30.0 (1-15=lpm pe45-179=%) PEEP 6 cm H2O Pressure Support 12 cm H2O Sodium (136-145) mEq/L Potassium (3.5-5.1) mEq/L Chloride (98-107) mEq/L Carbon Dioxide (23-29) mEq/L BUN (8-23) mg/dL Creatinine (0.70-1.30) mg/dL Est GFR ( Amer) (> 60) Est GFR (Non-Af Amer) (> 60) BUN/Creatinine Ratio (6-26) Glucose (70-105) mg/dL Calculated Osmolality (280-300) Lactic Acid 1.9 (0.5-2.2) mmol/L Calcium (8.6-10.3) mg/dL Troponin I (< 0.04) ng/mL B-Natriuretic Peptide 50 (Less than 100) pg/mL - Radiology Data Radiology results reviewed: Yes I reviewed the patient's radiology results. - EKG Data EKG attestation: Yes I reviewed and interpreted this EKG. EKG results narrative: EKG done at 1457 review myself and attending shows sinus rhythm at a rate of 85 , NM interval 162, QRS 97, QTC 390 with a normal axis. There is no acute ST changes no acute T-wave changes there is new Q waves in leads II, III, and F aVF. There is a right bundle-branch block. No signs of heart strain or hypertrophy no signs of WPW/Brugada syndrome. No other blocks. Overall this EKG is changed with the new Q waves oldEKGdone01/07/18. Attestation Statement - Attestation Attestation: I examined this patient and my medical decision-making was reviewed with the Resident Physician. I agree with the documented findings, disposition and treatment plan as described except to the extent set forth below. Findings consistent with pneumonia. Patient had a story failure requiring BiPAP. He did improve with BiPAP. We will start antibiotics to cover for possible hcap. Patient stable at time of admission. I spent greater than 35 minutes of critical care time resuscitating this acutely ill patient suffering from hypoxic respiratory failure requiring BiPAP. This is excluding billable procedures.
[2018-01-17] MEDS ORDERED: Piperacillin/Tazobactam 3.375 GM in 0.9 % Sodium Chloride Mini Bag 100 ML IVPB ONE (19:02)
[2018-01-17] MEDS ORDERED: Levofloxacin 750 MG/150 ML 750 MG/150 ML BAG IVPB ONE (19:02)
[2018-01-17] MEDS ORDERED: Albuterol 2.5 MG/3 ML NEBULIZER IH ONE (19:26)
[2018-01-17] MEDS ORDERED: Naloxone 0.4 MG/ML INJ IVP PRN (20:57)
[2018-01-17] MEDS ORDERED: Sennosides/Docusate Sodium TABLET PO PRN (21:03)
[2018-01-17] MEDS ORDERED: Nitroglycerin 0.4 MG TAB.SUBL SL PRN (21:03)
--- NOTE | 2018-01-17 21:11 | Internal Med History&Physical ---
Date of Encounter: 01/17/18 Time of Encounter: 20:00 Assessment and Plan (1) DVT prophylaxis Current visit: Yes Status: Acute EPCD. No AC b/o recent GI bleed (2) Acute exacerbation of chronic obstructive airways disease Current visit: No Status: Acute Patient has increased shortness of breath with wheezing. History of COPD. Consider COPD exacerbation. - Continue antibiotics, steroids, and bronchodilator - Continue oxygen supportive treatment (3) Hypertension Current visit: No Status: Chronic Continue home medications Qualifiers: Hypertension type: essential hypertension Qualified Code(s): I10 - Essential (primary) hypertension (4) HCAP (healthcare-associated pneumonia) Current visit: Yes Status: Acute CTA shows bilateral pneumonia. Patient has been recently hospitalized. Will treat patient as HCAP. - Place patient on Vanco Zosyn and Levaquin. - Follow up blood culture results Patient is at high risk because he is on vancomycin, need close monitoring Internal Medicine - H&P: HPI Chief complaint: Shortness of breath Admitted From: Home Plans for Post Hospital Care: Home History of present illness: Mr. Davidson is a 82 year old male with history of COPD, recent hospitalization for GI bleed, hypertension, presented to ER for shortness of breath. Patient has increased shortness of breath. He has cough, which is nonproductive. Patient denies fever. Patient has no chest pain. Patient denies nausea vomiting. In the emergency room, chest x-ray unremarkable, however, CTA shows no PE but bilateral pneumonia. Patient has been hospitalized recently for GI bleed. Patient was admitted as HCAP and COPD exacerbation. Past Med Surg Social Fam HX - Past Medical History Medical history: COPD, GI bleed, hyperlipidemia, hypertension, myocardial infarction Psychiatric history: anxiety - Past Surgical History Surgical History: coronary bypass (CABG), pacemaker/AICD, other - Social History Smoking Status: Never smoker Smokeless Tobacco Status: No Alcohol use: none Drug use: none - Family History Father Adopted: No Living Status: Hx Family Cardiac Disorders: Yes (heart attack) Internal Medicine - H&P: Meds GuaiFENesin ER [Mucinex] 600 mg PO BID PRN 05/26/15 [History] Albuterol Sulfate [Proair Hfa] 2 puff IH Q4H PRN 10/06/16 [History] Nitroglycerin [Nitrostat] 0.4 mg SL Q5M PRN 10/06/16 [History] Aspirin [Lo-Dose Aspirin EC] 81 mg PO 03/07/17 [History] Esomeprazole Magnesium [Nexium] 40 mg PO DAILY 03/07/17 [History] Fluticasone/Salmeterol [Advair 500-50 Diskus] 1 puff IH BID 03/07/17 [History] Enalapril Maleate [Vasotec] 40 mg PO DAILY 05/29/17 [History] Sennosides/Docusate Sodium [Senna Plus] 1 each PO DAILY PRN tablet 12/13/17 [Rx ] Albuterol Neb [Proventil Neb] 2.5 mg IH Q4H PRN 01/17/18 [History] Bumetanide [Bumex] 1 mg PO Q48H 01/17/18 [History] Levofloxacin [Levaquin] 500 mg PO DAILY 01/17/18 [History] Rivaroxaban [Xarelto] 20 mg PO QPM 01/17/18 [History] Simvastatin [Zocor] 20 mg PO HS 01/17/18 [History] predniSONE [PredniSONE] See Taper PO DAILY 01/17/18 [History] 3 Allergy/AdvReac Type Severity Reaction Status Date / Time naproxen Allergy Swelling Verified 01/07/18 12:35 of Lip/Tongue/Throat aclidinium AdvReac Dizziness Verified 01/07/18 12:35 [From Tudorza Pressair] amlodipine AdvReac Nausea Verified 01/07/18 12:35 fluoxetine AdvReac Hallucinati Verified 01/07/18 12:35 ng lorazepam [From Ativan] AdvReac Nausea Verified 01/07/18 12:35 All Systems PM: A 10-system review of systems was performed and is negative for pertinent findings except as documented above in the HPI. - Constitutional Vitals: Temp Pulse Resp BP Pulse Ox 97.7 F 80 20 137/93 94 01/17/18 20:30 01/17/18 20:30 01/17/18 20:53 01/17/18 20:30 01/17/18 20:53 General appearance: Present: mild distress, A&O X 3, answers questions appropriately - Head Head exam: Present: atraumatic, normocephalic - Eye Eye exam: Present: PERRL, conjuntiva pink, sclera anicteric Pupils: Present: PERRL - Neck Neck exam general surgery: Present: supple, trachea midline. Absent: lymphadenopathy - Respiratory Respiratory exam: Present: CTAB, rhonchi (Scattered rhonchi bilaterally), wheezes (Scheduled wheezes bilaterally). Absent: accessory muscle use, rales - Cardiovascular Cardiovascular exam: Present: RRR, +S1, +S2. Absent: diastolic murmur, gallop, rubs, systolic murmur - GI/Abdominal GI/Abdominal exam: Present: normal bowel sounds, soft, no peritoneal signs. Absent: distended, tenderness - Extremities Exam Extremities exam: Present: warm, radial pulses palpable and symmetrical. Absent : calf tenderness, cyanotic, pedal edema - Neurological Exam Neurological exam: Present: CN II-XII intact, oriented X3, no focal deficits. Absent: pronater drift, facial droop, speech deficit - Skin Skin exam: Present: dry, intact Internal Med - H&P Results - Labs CBC & Chem 7: 01/17/18 15:10 01/17/18 15:10
[2018-01-17] MEDS: Bumetanide 1 MG TABLET PO SCH (22:20)
[2018-01-17] MEDS: Ipratropium/Albuterol Neb 3 ML IH SCH (22:28)
[2018-01-18] MEDS: Ipratropium/Albuterol Neb 3 ML IH SCH ×4 (03:33→19:58)
[2018-01-18] MEDS: Piperacillin/Tazobactam 3.375 GM in 0.9 % Sodium Chloride Mini Bag 100 ML IVPB SCH ×2 (03:48→10:36)
[2018-01-18 06:10] LABS: Acinetobacter baumannii by PCR Not Detected (Not Detect); Candida albicans by PCR Not Detected (Not Detect); Candida glabrata by PCR Not Detected (Not Detect); Candida krusei by PCR Not Detected (Not Detect); Candida parapsilosis by PCR Not Detected (Not Detect); Candida tropicalis by PCR Not Detected (Not Detect); Enterococcus by PCR ***DETECTED*** (Not Detect); Escherichia coli by PCR Not Detected (Not Detect); Klebsiella oxytoca by PCR Not Detected (Not Detect); Klebsiella pneumoniae by PCR Not Detected (Not Detect); Pseudomonas aeruginosa by PCR Not Detected (Not Detect); Serratia marcescens by PCR Not Detected (Not Detect); Staphylococcus aureus by PCR Not Detected (Not Detect); Streptococcus agalactiae(B)PCR Not Detected (Not Detect); Streptococcus by PCR Not Detected (Not Detect); Streptococcus pneumoniae PCR Not Detected (Not Detect); Streptococcus pyogenes (A) PCR Not Detected (Not Detect); vanA/B Vancomycin-Resist Genes Not Detected (Not Detect)
[2018-01-18 06:43] LABS: Basophils % 0.1 %; Hematocrit 32.6 % (37.5-50.1); Hemoglobin 10.3 g/dL (12.9-16.9); Lymphocytes # 0.8 K/mcL (0.6-4.6); Lymphocytes % 8.2 %; Mean Corpuscular HGB Conc 31.6 g/dL (31.6-35.5); Mean Corpuscular Volume 85.3 fL (83.0-100.0); Mean Platelet Volume 12.7 fL (9.4-12.4); Monocytes # 0.5 K/mcL (0.0-1.3); Monocytes % 5.4 %; Neutrophils # 7.8 K/mcL (1.6-8.9); Platelet Count 181 K/mcL (140-400); Red Blood Count 3.82 M/mcL (4.19-5.50); Red Cell Distribution Width 14.7 % (11.5-14.5); Segmented Neutrophils % 85.3 %
[2018-01-18 06:44] LABS: BUN/Creatinine Ratio 25 (6-26); Blood Urea Nitrogen 27 mg/dL (8-23); Carbon Dioxide 29 mEq/L (23-29); Chloride 104 mEq/L (98-107); Glucose 169 mg/dL (70-105); Magnesium 2.2 mg/dL (1.6-2.6); Osmolality,Calculated 295 (280-300); Potassium 3.9 mEq/L (3.5-5.1); Sodium 138 mEq/L (136-145); eGFR For African Americans > 60 (> 60); eGFR For Non-African Americans > 60 (> 60)
[2018-01-18] MEDS: Lisinopril 20 MG TABLET PO SCH (08:12)
[2018-01-18] MEDS: Ipratropium/Albuterol Neb 3 ML IH PRN (08:17)
--- NOTE | 2018-01-18 09:34 | Internal Med Progress Note ---
<Chase Hanna - Last Filed: 01/18/18 11:12> Date of Encounter: 01/18/18 Time of Encounter: 09:20 - Assessment and plan (1) HCAP (healthcare-associated pneumonia) Current Visit: Yes Status: Acute Assessment and plan: Blood culture positive for gram positives cocci. Serology positive for enterococcus. Prior sensitivity shows resistance to doxycycline and sensitive to Vanco. Patient afebrile, white blood cell count normal at 9.2. Chest CT shows evidence of B/L PNA. - Discontinue Zosyn. Continue Levaquin, vancomycin. Day #2. - (2) Acute exacerbation of chronic obstructive airways disease Current Visit: No Status: Acute Assessment and plan: Wheezing and shortness of breath has improved since admission. History of COPD. - Continue antibiotics, steroids, and bronchodilator - 95% O2 on 3 L oxygen. Continue oxygen supportive treatment (3) Hypertension Current Visit: No Status: Chronic Assessment and plan: BP at 152/86 (123-172/50-91). - Continue lisinopril. Qualifiers: Hypertension type: essential hypertension Qualified Code(s): I10 - Essential (primary) hypertension (4) DVT prophylaxis Current Visit: Yes Status: Acute Assessment and plan: EPCD. No AC b/o recent GI bleed - Subjective Interval history: When seen today patient says that his shortness of breath has improved since admission. She admits to wheezing but says that it is at his baseline level. Denies any fever or chills. Denies any nausea, vomiting, chest pain, abdominal pain. Patient has had bowel movements. Denies any diarrhea or hematochezia. Denies any dysuria or hematuria. - Constitutional Vitals: Temp Pulse Resp BP Pulse Ox 97.9 F 88 16 152/86 95 01/18/18 07:28 01/18/18 07:28 01/18/18 08:17 01/18/18 07:28 01/18/18 08:17 General appearance: Present: A&O X 2, mild distress, no acute distress, answers questions appropriately - Respiratory Respiratory exam: Present: rhonchi (Minor rhonchi bilaterally), wheezes (Minor wheezing most prominent in upper posterior post bilaterally). Absent: rales, tachypnea - Cardiovascular Cardiovascular exam: Present: RRR, +S1, +S2. Absent: diastolic murmur, gallop, rubs, systolic murmur - GI/Abdominal GI/Abdominal exam: Present: normal bowel sounds, soft, no peritoneal signs. Absent: distended, tenderness - Extremities Exam Extremities exam: Present: full ROM, normal capillary refill, warm, radial pulses palpable and symmetrical. Absent: calf tenderness, cyanotic, pedal edema , tenderness Internal Medicine: Result - Labs CBC & Chem 7: 01/18/18 06:05 01/18/18 06:05 Labs: Short CBC 01/18/18 Range/Units 06:05 WBC 9.2 (4.3-11.1) K/mcL Hgb 10.3 L (12.9-16.9) g/dL Hct 32.6 L (37.5-50.1) % Plt Count 181 (140-400) K/mcL Neutrophils # 7.8 (1.6-8.9) K/mcL BMP 01/18/18 06:05 Sodium 138 Potassium 3.9 Chloride 104 Carbon Dioxide 29 BUN 27 H Creatinine 1.10 Glucose 169 H Calcium 9.0 - ABG Interpretation ABG results: ABG ABG pH 7.44 pH Units (7.32-7.45) 01/17/18 15:59 ABG pCO2 42 mmHg (35-45) 01/17/18 15:59 ABG pO2 111 mmHg (85-104) H 01/17/18 15:59 ABG O2 Saturation 99 % (95-98) H 01/17/18 15:59 PT/INR, D-dimer PT 14.3 Seconds (9.4-12.1) H 01/17/18 15:10 - VTE Documentation of Mechanical Device: Intermittent pneumatic compression device Consult Discharge Plan - Plan Referrals: Delma Zee CNP [Advanced Practice Nurse] - 01/25/18 11:00 am <Neeraj Moore H - Last Filed: 01/18/18 11:21> Date of Encounter: 01/18/18 - Constitutional Vitals: Temp Pulse Resp BP Pulse Ox 97.9 F 88 16 152/86 95 01/18/18 07:28 01/18/18 07:28 01/18/18 08:17 01/18/18 07:28 01/18/18 08:17 Internal Medicine: Result - Labs CBC & Chem 7: 03/29/18 06:05 01/18/18 06:05 Labs: Short CBC 01/18/18 Range/Units 06:05 WBC 9.2 (4.3-11.1) K/mcL Hgb 10.3 L (12.9-16.9) g/dL Hct 32.6 L (37.5-50.1) % Plt Count 181 (140-400) K/mcL Neutrophils # 7.8 (1.6-8.9) K/mcL BMP 01/18/18 06:05 Sodium 138 Potassium 3.9 Chloride 104 Carbon Dioxide 29 BUN 27 H Creatinine 1.10 Glucose 169 H Calcium 9.0 - ABG Interpretation ABG results: ABG ABG pH 7.44 pH Units (7.32-7.45) 01/17/18 15:59 ABG pCO2 42 mmHg (35-45) 01/17/18 15:59 ABG pO2 111 mmHg (85-104) H 01/17/18 15:59 ABG O2 Saturation 99 % (95-98) H 01/17/18 15:59 PT/INR, D-dimer PT 14.3 Seconds (9.4-12.1) H 01/17/18 15:10 - Attending Attestation Enterococcus bacteremia, possibly related to history of enterococcus UTI Healthcare assisted pneumonia present upon admission Discontinue Zosyn, continue Levaquin and vancomycin IV for now Blood cultures pending History of sinus node dysfunction status post pacemaker Accelerated hypertension, continue use IV hydralazine as needed I examined this patient and my medical decision-making was reviewed with the Resident Physician. I agree with the documented findings, disposition and treatment plan as described except to the extent set forth below.
[2018-01-18] MEDS: predniSONE 20 MG TABLET PO SCH (10:35)
[2018-01-18] MEDS ORDERED: hydrALAZINE 10 MG TABLET PO PRN (11:21)
[2018-01-18] MEDS: Budesonide/Formoterol 160/4.5 MDI IH SCH ×2 (11:45→19:56)
--- NOTE | 2018-01-18 16:42 | Electrocardiograph Report ---
[place] [id number] Test Date: 2018-01-17 Pat Name: Timothy Davidson Department: 104 Room: 2NE22 Gender: M [employer]: ROSA : [id number] Requested By: Paul Solis Order Number: [id number] Reading MD: Matthieu Hawthorne Measurements Intervals [place] Rate: 85 P: -18 [place]: 162 QRS: 19 QRSD: 97 T: 65 QT: 348 QTc: 390 Interpretive Statements SINUS RHYTHM NONSPECIFIC ST-T CHANGES Electronically Signed On 01-18-2018 16:41:38 EDT by Matthieu Hawthorne
[2018-01-18 20:09] LABS: Bacteria,Urine None Seen per hpf (None-Few); Bilirubin,Urine Negative (Negative); Blood,Urine Negative (Negative); Clarity,Urine Clear (Clear); Color,Urine Yellow (Yellow); Glucose,Urine (UA) Normal (Normal); Hyaline Casts,Urine None Seen per lpf (None-Few); Ketones,Urine Negative (Negative); Leukocyte Esterase,Urine Negative (Negative); Nitrite,Urine Negative (Negative); PH,Urine 5.5 pH Units (5.0-8.0); Protein,Urine Trace mg/dL (Neg-Trace); Specific Gravity,Urine > 1.030 (1.010-1.025); Squamous Epithelial Cell,Urine Many per lpf (None-Few); Urobilinogen,Urine Normal (Normal)
[2018-01-19] MEDS: Ipratropium/Albuterol Neb 3 ML IH PRN (01:16)
[2018-01-19] MEDS: Ipratropium/Albuterol Neb 3 ML IH SCH ×4 (04:43→21:37)
[2018-01-19 05:49] LABS: Basophils % 0.1 %; Hematocrit 32.5 % (37.5-50.1); Hemoglobin 10.1 g/dL (12.9-16.9); Immature Granulocytes % 0.5 % (0-4); Lymphocytes # 1.8 K/mcL (0.6-4.6); Lymphocytes % 15.8 %; Mean Corpuscular HGB Conc 31.1 g/dL (31.6-35.5); Mean Corpuscular Hemoglobin 26.6 pg (28.0-33.3); Mean Corpuscular Volume 85.5 fL (83.0-100.0); Monocytes # 0.9 K/mcL (0.0-1.3); Monocytes % 8.4 %; Neutrophils # 8.4 K/mcL (1.6-8.9); Platelet Count 192 K/mcL (140-400); Segmented Neutrophils % 75.2 %
[2018-01-19 06:45] LABS: BUN/Creatinine Ratio 30 (6-26); Blood Urea Nitrogen 30 mg/dL (8-23); Calcium 8.6 mg/dL (8.6-10.3); Carbon Dioxide 25 mEq/L (23-29); Chloride 103 mEq/L (98-107); Glucose 103 mg/dL (70-105); Osmolality,Calculated 294 (280-300); Potassium 3.8 mEq/L (3.5-5.1); Sodium 139 mEq/L (136-145); eGFR For African Americans > 60 (> 60); eGFR For Non-African Americans > 60 (> 60)
[2018-01-19] MEDS: Lisinopril 20 MG TABLET PO SCH (08:31)
[2018-01-19] MEDS: predniSONE 20 MG TABLET PO SCH (08:32)
[2018-01-19] MEDS: Budesonide/Formoterol 160/4.5 MDI IH SCH ×2 (09:40→21:37)
[2018-01-19] MEDS ORDERED: Aminoglycoside Consult 1 EACH MC ONE (09:40)
--- NOTE | 2018-01-19 10:18 | Internal Med Progress Note ---
<Chase Hanna - Last Filed: 01/19/18 10:47> Date of Encounter: 01/19/18 Time of Encounter: 10:20 - Assessment and plan (1) HCAP (healthcare-associated pneumonia) Current Visit: Yes Status: Acute Assessment and plan: Blood culture positive for gram positives cocci. Serology positive for enterococcus. Prior sensitivity shows resistance to doxycycline and sensitive to Vanco. Patient afebrile, white blood cell count normal at 11.2. Chest CT shows evidence of B/L PNA. UA shows no signs of infection. - Continue Levaquin, vancomycin. Day #3. - Daily blood cultures. (2) Leukocytosis Current Visit: Yes Status: Acute Assessment and plan: White blood cell count increased from 9.2 up to 11.2 since yesterday. Most likely secondary to use of prednisone. - Continue to monitor Qualifiers: Qualified Code(s): D72.829 - Elevated white blood cell count, unspecified (3) Acute exacerbation of chronic obstructive airways disease Current Visit: No Status: Acute Assessment and plan: Wheezing and shortness of breath has improved since admission. History of COPD. - Continue antibiotics, steroids, and bronchodilator. 40 mg prednisone PO qd. - Continue oxygen supportive treatment (4) Hypertension Current Visit: No Status: Chronic Assessment and plan: BP at 164/83 (126-164/64-90). - Continue lisinopril. - Continue hydralazine PRN Qualifiers: Hypertension type: essential hypertension Qualified Code(s): I10 - Essential (primary) hypertension (5) DVT prophylaxis Current Visit: Yes Status: Acute Assessment and plan: EPCD. No AC b/o recent GI bleed - Subjective Interval history: When seen today patient still continues to complain of intermittent dysuria. He denies any hematochezia or hematuria. Denies any chest pain. Admits to shortness of breath but says that it has improved since admission. Denies any fever, chills, nausea, vomiting, or abdominal pain. - Constitutional Vitals: Temp Pulse Resp BP Pulse Ox 98.0 F 85 15 164/83 97 01/19/18 07:06 01/19/18 07:06 01/19/18 07:06 01/19/18 07:06 01/19/18 07:06 General appearance: Present: A&O X 2, mild distress, no acute distress, answers questions appropriately - Respiratory Respiratory exam: Present: wheezes (Minor wheezing b/l in posterior posts. ). Absent: accessory muscle use, chest wall tenderness, respiratory distress, tachypnea - Cardiovascular Cardiovascular exam: Present: irregular rhythm. Absent: bradycardia, diastolic murmur, systolic murmur, tachycardia - GI/Abdominal GI/Abdominal exam: Present: normal bowel sounds, soft, no peritoneal signs. Absent: distended, tenderness - Extremities Exam Extremities exam: Present: warm, radial pulses palpable and symmetrical. Absent : calf tenderness, cyanotic, pedal edema Internal Medicine: Result - Labs CBC & Chem 7: 01/19/18 05:19 01/19/18 05:19 Labs: Short CBC 01/19/18 Range/Units 05:19 WBC 11.2 H (4.3-11.1) K/mcL Hgb 10.1 L (12.9-16.9) g/dL Hct 32.5 L (37.5-50.1) % Plt Count 192 (140-400) K/mcL Neutrophils # 8.4 (1.6-8.9) K/mcL BMP 01/19/18 05:19 Sodium 139 Potassium 3.8 Chloride 103 Carbon Dioxide 25 BUN 30 H Creatinine 1.01 Glucose 103 Calcium 8.6 Urine 01/18/18 Range/Units 17:05 Urine Color Yellow (Yellow) Urine Clarity Clear (Clear) Urine pH 5.5 (5.0-8.0) pH Units Ur Specific [place] > 1.030 H (1.010-1.025) Urine Protein Trace (Neg-Trace) mg/dL Urine Glucose (UA) Normal (Normal) mg/dL - ABG Interpretation ABG results: ABG ABG pH 7.44 pH Units (7.32-7.45) 01/17/18 15:59 ABG pCO2 42 mmHg (35-45) 01/17/18 15:59 ABG pO2 111 mmHg (85-104) H 01/17/18 15:59 ABG O2 Saturation 99 % (95-98) H 01/17/18 15:59 PT/INR, D-dimer PT 14.3 Seconds (9.4-12.1) H 01/17/18 15:10 - VTE Documentation of Mechanical Device: Intermittent pneumatic compression device Consult Discharge Plan - Plan Referrals: Delma Zee CNP [Advanced Practice Nurse] - 01/25/18 11:00 am <Neeraj Moore H - Last Filed: 01/19/18 15:17> Date of Encounter: 01/19/18 - Constitutional Vitals: Temp Pulse Resp BP Pulse Ox 97.9 F 81 15 133/72 97 01/19/18 10:42 01/19/18 10:42 01/19/18 10:42 01/19/18 10:42 01/19/18 10:42 Internal Medicine: Result - Labs CBC & Chem 7: 01/19/18 05:19 01/19/18 05:19 Labs: Short CBC 01/19/18 Range/Units 05:19 WBC 11.2 H (4.3-11.1) K/mcL Hgb 10.1 L (12.9-16.9) g/dL Hct 32.5 L (37.5-50.1) % Plt Count 192 (140-400) K/mcL Neutrophils # 8.4 (1.6-8.9) K/mcL BMP 01/19/18 05:19 Sodium 139 Potassium 3.8 Chloride 103 Carbon Dioxide 25 BUN 30 H Creatinine 1.01 Glucose 103 Calcium 8.6 Urine 01/18/18 Range/Units 17:05 Urine Color Yellow (Yellow) Urine Clarity Clear (Clear) Urine pH 5.5 (5.0-8.0) pH Units Ur Specific [place] > 1.030 H (1.010-1.025) Urine Protein Trace (Neg-Trace) mg/dL Urine Glucose (UA) Normal (Normal) mg/dL - ABG Interpretation ABG results: ABG ABG pH 7.44 pH Units (7.32-7.45) 01/17/18 15:59 ABG pCO2 42 mmHg (35-45) 01/17/18 15:59 ABG pO2 111 mmHg (85-104) H 01/17/18 15:59 ABG O2 Saturation 99 % (95-98) H 01/17/18 15:59 PT/INR, D-dimer PT 14.3 Seconds (9.4-12.1) H 01/17/18 15:10 - Attending Attestation Enterococcus bacteremia, possibly related to history of enterococcus UTI Healthcare assisted pneumonia present upon admission Discontinued Zosyn, continue Levaquin and vancomycin IV for now Blood cultures reordered History of sinus node dysfunction status post pacemaker Accelerated hypertension, continue use IV hydralazine as needed I examined this patient and my medical decision-making was reviewed with the Resident Physician. I agree with the documented findings, disposition and treatment plan as described except to the extent set forth below.
[2018-01-19] MEDS ORDERED: Levofloxacin 750 MG/150 ML 750 MG/150 ML BAG IVPB SCH (19:00)
[2018-01-19] MEDS: Bumetanide 1 MG TABLET PO SCH (20:03)
[2018-01-20] MEDS ORDERED: Melatonin 3 MG TABLET PO ONE (00:24)
[2018-01-20] MEDS: Ipratropium/Albuterol Neb 3 ML IH SCH ×4 (04:09→22:35)
[2018-01-20 05:54] LABS: Eosinophils % 0.1 %; Hematocrit 31.7 % (37.5-50.1); Hemoglobin 9.9 g/dL (12.9-16.9); Immature Granulocytes % 0.7 % (0-4); Lymphocytes % 15.8 %; Mean Corpuscular HGB Conc 31.2 g/dL (31.6-35.5); Mean Corpuscular Hemoglobin 27.1 pg (28.0-33.3); Mean Corpuscular Volume 86.8 fL (83.0-100.0); Mean Platelet Volume 12.9 fL (9.4-12.4); Monocytes % 9.1 %; Platelet Count 172 K/mcL (140-400); Red Blood Count 3.65 M/mcL (4.19-5.50); Red Cell Distribution Width 14.9 % (11.5-14.5); Segmented Neutrophils % 74.3 %
[2018-01-20 05:55] LABS: Lymphocytes # 1.5 K/mcL (0.6-4.6); Monocytes # 0.9 K/mcL (0.0-1.3); Neutrophils # 7.1 K/mcL (1.6-8.9)
[2018-01-20 06:01] LABS: BUN/Creatinine Ratio 26 (6-26); Blood Urea Nitrogen 30 mg/dL (8-23); Calcium 8.5 mg/dL (8.6-10.3); Carbon Dioxide 31 mEq/L (23-29); Chloride 103 mEq/L (98-107); Glucose 118 mg/dL (70-105); Osmolality,Calculated 293 (280-300); Sodium 138 mEq/L (136-145); eGFR For African Americans > 60 (> 60); eGFR For Non-African Americans > 60 (> 60)
[2018-01-20] MEDS: predniSONE 20 MG TABLET PO SCH (08:49)
[2018-01-20] MEDS: Lisinopril 20 MG TABLET PO SCH (08:49)
[2018-01-20] MEDS: Budesonide/Formoterol 160/4.5 MDI IH SCH ×2 (10:17→22:35)
--- NOTE | 2018-01-20 10:51 | Internal Med Progress Note ---
Date of Encounter: 01/20/18 Time of Encounter: 10:45 - Assessment and plan (1) Bacteremia due to Enterococcus Current Visit: Yes Status: Acute Assessment and plan: Sensitive to ampicillin Unidentified source Stop vancomycin IV ( day 4) Start ampicillin IV Repeat blood cultures, echocardiogram pending Consider infectious diseases consult Discontinue Levaquin, not entirely convinced that the patient had healthcare assisted pneumonia as the CT scan shows minimal small bilateral infiltrates and the patient is not complaining of any shortness of breath Received 3 days of Levaquin (2) Candidal urinary tract infection Current Visit: Yes Status: Acute Assessment and plan: Asymptomatic May start fluconazole in the patient becomes symptomatic (3) Acute exacerbation of chronic obstructive airways disease Current Visit: No Status: Acute Assessment and plan: Acute COPD exacerbation possibly secondary to acute bacterial bronchitis Taper prednisone, continue inhalers/DuoNeb's (4) Afib Current Visit: No Status: Chronic Assessment and plan: Continue aspirin Xarelto was discontinued a few months ago due to GI bleed Qualifiers: Atrial fibrillation type: chronic Qualified Code(s): I48.2 - Chronic atrial fibrillation (5) History of coronary artery bypass graft x 3 Current Visit: No Status: Chronic Assessment and plan: Stable on aspirin Start low dose metoprolol, simvastatin (6) Hypertension Current Visit: No Status: Chronic Qualifiers: Hypertension type: essential hypertension Qualified Code(s): I10 - Essential (primary) hypertension - Subjective Interval history: Very hard of hearing, denies any chest pressures or breath, no abdominal pain, no fevers. No dysuria or diarrhea - Constitutional Vitals: Temp Pulse Resp BP Pulse Ox 97.9 F 70 16 139/81 98 01/20/18 06:35 01/20/18 06:35 01/20/18 06:35 01/20/18 06:35 01/20/18 06:35 General appearance: Present: A&O X 2, mild distress, no acute distress, answers questions appropriately - Head Head exam: Present: atraumatic, normocephalic - Eye Eye exam: Present: PERRL, conjuntiva pink, sclera anicteric Pupils: Present: PERRL - Neck Neck exam general surgery: Present: supple, trachea midline. Absent: lymphadenopathy - Respiratory Respiratory exam: Present: CTAB. Absent: accessory muscle use, rales, rhonchi, wheezes - Cardiovascular Cardiovascular exam: Present: RRR, +S1, +S2. Absent: diastolic murmur, gallop, rubs, systolic murmur - GI/Abdominal GI/Abdominal exam: Present: normal bowel sounds, soft, no peritoneal signs. Absent: distended, tenderness - Extremities Exam Extremities exam: Present: warm, radial pulses palpable and symmetrical. Absent : calf tenderness, cyanotic, pedal edema - Neurological Exam Neurological exam: Present: CN II-XII intact, oriented X3, no focal deficits. Absent: pronater drift, facial droop, speech deficit - Skin Skin exam: Present: dry, intact Internal Medicine: Result - Labs CBC & Chem 7: 01/20/18 05:15 01/20/18 05:15 Labs: Short CBC 01/20/18 Range/Units 05:15 WBC 9.5 (4.3-11.1) K/mcL Hgb 9.9 L (12.9-16.9) g/dL Hct 31.7 L (37.5-50.1) % Plt Count 172 (140-400) K/mcL Neutrophils # 7.1 (1.6-8.9) K/mcL BMP 01/20/18 05:15 Sodium 138 Potassium 4.0 Chloride 103 Carbon Dioxide 31 H BUN 30 H Creatinine 1.16 Glucose 118 H Calcium 8.5 L - ABG Interpretation ABG results: ABG ABG pH 7.44 pH Units (7.32-7.45) 01/17/18 15:59 ABG pCO2 42 mmHg (35-45) 01/17/18 15:59 ABG pO2 111 mmHg (85-104) H 01/17/18 15:59 ABG O2 Saturation 99 % (95-98) H 01/17/18 15:59 PT/INR, D-dimer PT 14.3 Seconds (9.4-12.1) H 01/17/18 15:10 - VTE Documentation of Mechanical Device: Intermittent pneumatic compression device Consult Discharge Plan - Plan Referrals: Delma Zee CNP [Advanced Practice Nurse] - 01/25/18 11:00 am
[2018-01-21] MEDS: Ipratropium/Albuterol Neb 3 ML IH SCH ×4 (04:58→22:00)
[2018-01-21 07:37] LABS: Hematocrit 34.1 % (37.5-50.1); Hemoglobin 10.6 g/dL (12.9-16.9); Mean Corpuscular HGB Conc 31.1 g/dL (31.6-35.5); Mean Corpuscular Hemoglobin 26.9 pg (28.0-33.3); Mean Corpuscular Volume 86.5 fL (83.0-100.0); Mean Platelet Volume 12.7 fL (9.4-12.4); Platelet Count 183 K/mcL (140-400); Red Blood Count 3.94 M/mcL (4.19-5.50); Red Cell Distribution Width 14.9 % (11.5-14.5)
[2018-01-21 07:48] LABS: BUN/Creatinine Ratio 32 (6-26); Blood Urea Nitrogen 33 mg/dL (8-23); Calcium 8.6 mg/dL (8.6-10.3); Carbon Dioxide 28 mEq/L (23-29); Chloride 105 mEq/L (98-107); Glucose 104 mg/dL (70-105); Osmolality,Calculated 296 (280-300); Potassium 3.7 mEq/L (3.5-5.1); Sodium 139 mEq/L (136-145); eGFR For African Americans > 60 (> 60); eGFR For Non-African Americans > 60 (> 60)
--- NOTE | 2018-01-21 08:29 | Internal Med Progress Note ---
Date of Encounter: 01/21/18 Time of Encounter: 08:27 - Assessment and plan (1) Bacteremia due to Enterococcus Current Visit: Yes Status: Acute Assessment and plan: Sensitive to ampicillin Unidentified source Stopped vancomycin IV at day 4 CONtinue ampicillin IV day #2 Repeat blood cultures, echocardiogram pending Consider infectious diseases consult Discontinue Levaquin, not entirely convinced that the patient had healthcare assisted pneumonia as the CT scan shows minimal small bilateral infiltrates and the patient is not complaining of any shortness of breath Received 3 days of Levaquin (2) Candidal urinary tract infection Current Visit: Yes Status: Acute Assessment and plan: Asymptomatic May start fluconazole in the patient becomes symptomatic (3) Acute exacerbation of chronic obstructive airways disease Current Visit: No Status: Acute Assessment and plan: Acute COPD exacerbation possibly secondary to acute bacterial bronchitis Taper prednisone, continue inhalers/DuoNeb's (4) Afib Current Visit: No Status: Chronic Assessment and plan: Continue aspirin Xarelto was discontinued a few months ago due to GI bleed Qualifiers: Atrial fibrillation type: chronic Qualified Code(s): I48.2 - Chronic atrial fibrillation (5) History of coronary artery bypass graft x 3 Current Visit: No Status: Chronic Assessment and plan: Stable on aspirin Started low dose metoprolol, simvastatin (6) Hypertension Current Visit: No Status: Chronic Qualifiers: Hypertension type: essential hypertension Qualified Code(s): I10 - Essential (primary) hypertension - Subjective Interval history: Feeling better. No new complaints. Very hard of hearing, denies any chest pressures or breath, no abdominal pain, no fevers. No dysuria or diarrhea - Constitutional Vitals: Temp Pulse Resp BP Pulse Ox 97.9 F 68 17 148/77 96 01/21/18 03:04 01/21/18 03:04 01/21/18 04:58 01/21/18 03:04 01/21/18 04:58 General appearance: Present: mild distress, A&O X 3, no acute distress, answers questions appropriately Exam: - Head Head exam: Present: atraumatic, normocephalic - Eye Eye exam: Present: PERRL, conjuntiva pink, sclera anicteric Pupils: Present: PERRL - Neck Neck exam general surgery: Present: supple, trachea midline. Absent: lymphadenopathy - Respiratory Respiratory exam: Present: CTAB. Absent: accessory muscle use, rales, rhonchi, wheezes - Cardiovascular Cardiovascular exam: Present: RRR, +S1, +S2. Absent: diastolic murmur, gallop, rubs, systolic murmur - GI/Abdominal GI/Abdominal exam: Present: normal bowel sounds, soft, no peritoneal signs. Absent: distended, tenderness - Extremities Exam Extremities exam: Present: warm, radial pulses palpable and symmetrical. Absent : calf tenderness, cyanotic, pedal edema - Neurological Exam Neurological exam: Present: CN II-XII intact, oriented X3, no focal deficits. Absent: pronater drift, facial droop, speech deficit - Skin Skin exam: Present: dry, intact Internal Medicine: Result - Labs CBC & Chem 7: 01/21/18 06:58 01/21/18 06:58 Labs: Short CBC 01/21/18 Range/Units 06:58 WBC 10.7 (4.3-11.1) K/mcL Hgb 10.6 L (12.9-16.9) g/dL Hct 34.1 L (37.5-50.1) % Plt Count 183 (140-400) K/mcL BMP 01/21/18 06:58 Sodium 139 Potassium 3.7 Chloride 105 Carbon Dioxide 28 BUN 33 H Creatinine 1.03 Glucose 104 Calcium 8.6 - ABG Interpretation ABG results: ABG ABG pH 7.44 pH Units (7.32-7.45) 01/17/18 15:59 ABG pCO2 42 mmHg (35-45) 01/17/18 15:59 ABG pO2 111 mmHg (85-104) H 01/17/18 15:59 ABG O2 Saturation 99 % (95-98) H 01/17/18 15:59 PT/INR, D-dimer PT 14.3 Seconds (9.4-12.1) H 01/17/18 15:10 - Impressions Impressions Echocardiogram 01/19/18 13:31 Impressions: LVEF 60%. Not all LV wall segments are well visualized. Mild left ventricular diastolic dysfunction. Normal right ventricular structure and function. No significant valvular dysfunction. No pulmonary hypertension. Left Ventricular Wall Motion: Rest Echo Findings The basal inferior wall was hypokinetic. The mid inferior lateral and basal inferior lateral salazar were not visualized. All other wall segments showed normal motion. Findings: Study Quality * Technically sub-optimal due to poor echocardiographic windows. ECG Findings * Normal sinus rhythm. Left Ventricle * LVEF 60%. * LV wall thickness measurements not well obtained. * Mild left ventricular diastolic dysfunction. Right Ventricle * Normal right ventricular structure and function. Left Atrium * Moderately dilated left atrium. Right Atrium * Normal right atrial size. Aortic Valve * No aortic regurgitation. * Aortic valve not well visualized. * No aortic stenosis. Mitral Valve * Normal mitral valve structure. * No mitral stenosis. * Trace mitral regurgitation. Tricuspid Valve * Tricuspid valve not well visualized. * Trace tricuspid regurgitation. Pulmonic Valve * Pulmonic valve is not well visualized. * No pulmonic stenosis. * No pulmonic regurgitation. Pulmonary Artery * Pulmonary artery not well visualized. Aorta * Not optimally visualized. Pericardium * There is no pericardial effusion present. Interatrial Septum * No evidence of PFO by color Doppler. Device lead * A device lead was visualized in the right atrium and right ventricle. IVC * The IVC is not well evaluated. - VTE Documentation of Mechanical Device: Intermittent pneumatic compression device Consult Discharge Plan - Plan Referrals: Delma Zee CNP [Advanced Practice Nurse] - 01/25/18 11:00 am
[2018-01-21] MEDS: Lisinopril 20 MG TABLET PO SCH (09:07)
[2018-01-21] MEDS: predniSONE 20 MG TABLET PO SCH (09:08)
[2018-01-21] MEDS: Acetaminophen 325 MG TABLET PO PRN ×2 (10:08→20:19)
[2018-01-21] MEDS: Budesonide/Formoterol 160/4.5 MDI IH SCH ×2 (10:29→22:00)
[2018-01-21] MEDS: Bumetanide 1 MG TABLET PO SCH (20:18)
[2018-01-22] MEDS: Ipratropium/Albuterol Neb 3 ML IH SCH ×4 (03:38→22:44)
[2018-01-22] MEDS ORDERED: Melatonin 3 MG TABLET PO ONE ×2 (03:45→20:00)
[2018-01-22 04:12] LABS: Hematocrit 32.9 % (37.5-50.1); Mean Corpuscular HGB Conc 30.4 g/dL (31.6-35.5); Mean Corpuscular Hemoglobin 26.9 pg (28.0-33.3); Mean Corpuscular Volume 88.4 fL (83.0-100.0); Platelet Count 145 K/mcL (140-400); Red Blood Count 3.72 M/mcL (4.19-5.50); Red Cell Distribution Width 14.9 % (11.5-14.5)
[2018-01-22 04:30] LABS: Calcium 8.6 mg/dL (8.6-10.3); Potassium 3.8 mEq/L (3.5-5.1)
[2018-01-22] MEDS: Lisinopril 20 MG TABLET PO SCH (07:33)
[2018-01-22] MEDS: predniSONE 20 MG TABLET PO SCH (07:33)
--- NOTE | 2018-01-22 08:29 | Internal Med Progress Note ---
Date of Encounter: 01/22/18 Time of Encounter: 08:29 - Assessment and plan (1) Bacteremia due to Enterococcus Current Visit: Yes Status: Acute Assessment and plan: Sensitive to ampicillin Unidentified source Stopped vancomycin IV at day 4 CONtinue ampicillin IV day #3 ID consult Repeat blood cultures, echocardiogram showed: LVEF 60%. Not all LV wall segments are well visualized. Mild left ventricular diastolic dysfunction. Normal right ventricular structure and function. No significant valvular dysfunction. No pulmonary hypertension. Discontinue Levaquin, not entirely convinced that the patient had healthcare assisted pneumonia as the CT scan shows minimal small bilateral infiltrates and the patient is not complaining of any shortness of breath Received 3 days of Levaquin (2) ARF (acute renal failure) Current Visit: Yes Status: Acute Assessment and plan: start IVF consider nephrology consult if not improving Qualifiers: Acute renal failure type: unspecified Qualified Code(s): N17.9 - Acute kidney failure, unspecified (3) Candidal urinary tract infection Current Visit: Yes Status: Acute Assessment and plan: Asymptomatic May start fluconazole in the patient becomes symptomatic (4) Acute exacerbation of chronic obstructive airways disease Current Visit: No Status: Acute Assessment and plan: Acute COPD exacerbation possibly secondary to acute bacterial bronchitis Taper prednisone, continue inhalers/DuoNeb's (5) Afib Current Visit: No Status: Chronic Assessment and plan: Continue aspirin Xarelto was discontinued a few months ago due to GI bleed Qualifiers: Atrial fibrillation type: chronic Qualified Code(s): I48.2 - Chronic atrial fibrillation (6) History of coronary artery bypass graft x 3 Current Visit: No Status: Chronic Assessment and plan: Stable on aspirin Started low dose metoprolol, simvastatin (7) Hypertension Current Visit: No Status: Chronic Qualifiers: Hypertension type: essential hypertension Qualified Code(s): I10 - Essential (primary) hypertension - Subjective Interval history: Feeling better. No new complaints. Confused at times. Very hard of hearing, denies any chest pressures or breath, no abdominal pain, no fevers. No dysuria or diarrhea - Constitutional Vitals: Temp Pulse Resp BP Pulse Ox 97.7 F 67 20 149/73 95 01/22/18 07:12 01/22/18 07:12 01/22/18 07:12 01/22/18 07:12 01/22/18 07:38 General appearance: Present: mild distress, A&O X 3, no acute distress, answers questions appropriately Exam: - Head Head exam: Present: atraumatic, normocephalic - Eye Eye exam: Present: PERRL, conjuntiva pink, sclera anicteric Pupils: Present: PERRL - Neck Neck exam general surgery: Present: supple, trachea midline. Absent: lymphadenopathy - Respiratory Respiratory exam: Present: CTAB. Absent: accessory muscle use, rales, rhonchi, wheezes - Cardiovascular Cardiovascular exam: Present: RRR, +S1, +S2. Absent: diastolic murmur, gallop, rubs, systolic murmur - GI/Abdominal GI/Abdominal exam: Present: normal bowel sounds, soft, no peritoneal signs. Absent: distended, tenderness - Extremities Exam Extremities exam: Present: warm, radial pulses palpable and symmetrical. Absent : calf tenderness, cyanotic, pedal edema - Neurological Exam Neurological exam: Present: CN II-XII intact, oriented X3, no focal deficits. Absent: pronater drift, facial droop, speech deficit - Skin Skin exam: Present: dry, intact Internal Medicine: Result - Labs CBC & Chem 7: 01/22/18 03:56 01/22/18 03:56 Labs: Short CBC 01/22/18 Range/Units 03:56 WBC 10.1 (4.3-11.1) K/mcL Hgb 10.0 L (12.9-16.9) g/dL Hct 32.9 L (37.5-50.1) % Plt Count 145 (140-400) K/mcL BMP 01/22/18 03:56 Sodium 138 Potassium 3.8 Chloride 105 Carbon Dioxide 28 BUN 34 H Creatinine 1.51 H Glucose 138 H Calcium 8.6 - ABG Interpretation ABG results: ABG ABG pH 7.44 pH Units (7.32-7.45) 01/17/18 15:59 ABG pCO2 42 mmHg (35-45) 01/17/18 15:59 ABG pO2 111 mmHg (85-104) H 01/17/18 15:59 ABG O2 Saturation 99 % (95-98) H 01/17/18 15:59 PT/INR, D-dimer PT 14.3 Seconds (9.4-12.1) H 01/17/18 15:10 - VTE Documentation of Mechanical Device: Intermittent pneumatic compression device Consult Discharge Plan - Plan Referrals: Delma Zee CNP [Advanced Practice Nurse] - 01/25/18 11:00 am
[2018-01-22] MEDS ORDERED: 0.9 % Sodium Chloride 1,000 ML IVC SCH (08:30)
[2018-01-22] MEDS: Budesonide/Formoterol 160/4.5 MDI IH SCH ×2 (10:33→22:44)
[2018-01-22] MEDS ORDERED: Ampicillin 2 GM in 0.9 % Sodium Chloride Mini Bag 100 ML IVPB SCH (11:00)
--- NOTE | 2018-01-22 13:15 | Infectious Disease Consult ---
Date of Encounter: 01/22/18 Time of Encounter: 13:11 Assessment and Plan (1) Sepsis Status: Acute Assessment and plan: The patient had two SIRS criteria on admission. Likely secondary to bacteremia and UTI. Improved. Tachycardia and tachypnea have resolved. Blood cultures drawn 01/17/18 were positive 2/2 sets for Enterococcus. Repeat blood cultures drawn 01/19/18 were positive 1/2 sets for Enterococcus. Additional blood cultures drawn 01/20 x 2 sets and 01/21 x 1 set are NGTD. Qualifiers: Sepsis type: sepsis due to unspecified organism Qualified Code(s): A41.9 - Sepsis, unspecified organism (2) Bacteremia due to Enterococcus Status: Acute Assessment and plan: Causative organism Enterococcus. Source unclear, but high index of suspicion for urinary source given the patient 's recent history of Enterococcus UTI. Blood cultures drawn 01/17/18 were positive 2/2 sets for Enterococcus. Repeat blood cultures drawn 01/19/18 were positive 1/2 sets for Enterococcus. Additional blood cultures drawn 01/20 x 2 sets and 01/21 x 1 set are NGTD. Complicated due to the presence the pacemaker. The patient has one major and two minor Modified Acosta's Criteria. He has no endocarditis stigmata on exam. TTE negative for valvular dysfunction or vegetation, but the windows were suboptimal. Recommend WESLY to evaluate the device leads. Start Unasyn 3 grams IV Q6H to cover bacteremia and HCAP. Duration of treatment depends on the clinical picture. Monitor renal function and for drug toxicity and dose-adjust antibiotics. (3) HCAP (healthcare-associated pneumonia) Status: Acute Assessment and plan: Location: Bilateral bases. Causative organism unclear. Low index of suspicion for MRSA pneumonia given the clinical picture. CTA of the chest shows bilateral lower lobe airspace disease, likely PNA. Recently hospitalized back in November for GI bleed. Check sputum culture if the patient is able to provide an adequate specimen. Check S. pneumo and Legionella UAT. Re-start Levaquin 750mg IV Q48H. Dosed for a creatinine clearance ~30. Start Unasyn 3 grams IV Q12H. Duration of treatment depends on the clinical picture. Monitor renal function and dose-adjust antibiotics. (4) UTI (urinary tract infection) Status: Suspected Assessment and plan: Urinalysis negative, but not done until the patient had already been on antibiotics for >24 hours. High index of suspicion given the patient's urinary symptoms and recent UTI. Causative organism likely Enteroccocus. Antibiotics as above. Qualifiers: Urinary tract infection type: acute cystitis Hematuria presence: without hematuria Qualified Code(s): N30.00 - Acute cystitis without hematuria (5) Candiduria Status: Acute Assessment and plan: No indication to treat. (6) ARF (acute renal failure) Status: Acute Assessment and plan: Serum creatinine up this morning. Etiology unclear. Continue to trend. Dose-adjust antibiotics. Avoid nephrotoxins as able. Qualifiers: Acute renal failure type: unspecified Qualified Code(s): N17.9 - Acute kidney failure, unspecified (7) COPD exacerbation Status: Acute Assessment and plan: Supportive care per the primary team. (8) Obesity (BMI 30-39.9) Status: Chronic Infectious Disease HPI - Data of Consult Patient: new to practice Consult date: 01/22/18 Requesting Physician: Neeraj Moore Primary Care Provider: Tyrone Duong MD - Consult Narrative Reason for consult: Enterococcus Bacteremia History of present illness: Mr. Davidson is a 82 year old male past medical history of GI bleed, COPD, hyperlipidemia, hypertension, and NM, and remote history of pacemaker insertion in 2016. The patient was admitted to the hospital 01/17/2018 for shortness of breath. We are consulted January 22 for antibiotic recommendations for enterococcus bacteremia. Briefly, the patient's 82-year-old male with past medical history as stated above. The patient presented to the emergency department with a one-week history of increasing shortness of breath and cough productive of yellow sputum. Upon presentation to the ER, the patient was afebrile, but was tachycardic. Laboratory studies revealed a normal white blood cell count, normal renal function, normal lactic acid level. Chest x-ray was negative. A CTA of the chest showed bilateral lower lobe airspace disease, likely pneumonia. Blood cultures were obtained 2 sets. He was started empirically on IV vancomycin, Zosyn, and Levaquin. He was admitted to the hospital for further evaluation. Since admission, the patient has improved clinically. His blood cultures obtained in the emergency department came back +2 out of 2 sets for enterococcus. The patient did have some complaints of dysuria and urinary frequency. A urinalysis was obtained, but appeared contaminated. The specimen was sent for culture, but only grew out Angela. The patient did have a urine culture during his hospitalization back in November that was positive for Enterococcus. Review of the medical record revealed that he only received 1 day of amoxicillin, but it does not look like he received a prescription to continue treatment at home. No blood cultures were obtained during the hospitalization. Repeat blood cultures were obtained on January 19 that were +1 out of 2 sets. Additional blood cultures were repeated on January 20 x2 sets as well as January 21 x 1 set that are no growth to date. At this time, the patient has been off antibiotics since 01/20. We've been asked to evaluate and make further recommendations. During my exam today, the patient states that overall he feels better. He denies any known fevers. He did report some chills. He denied any headache or neck pain. He denied any congestion, earache, or sore throat. He did report that his shortness of breath was worse than normal and he had a cough productive of yellow sputum. He denied any pain in his chest. He states that he felt nauseated, but denies any vomiting or abdominal pain. He states his appetite been okay. He denies pain in his back or extremities. He states that he was having increased urinary frequency as well as some dysuria with starting his urine stream. He states his urinary symptoms have resolved. He states he thinks his breathing is back to baseline. He denies any oral thrush or new skin lesions. Patient lives at [facility] in an assisted living apartment. He denies any tobacco or alcohol or illicit drug use. 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 He denies any recent travel outside the [facility]. CC: Neeraj Moore Past Med Surg Social Fam HX - Past Medical History Attestation: Yes The following information was validated with the patient. Source: patient, old records reviewed, nursing notes reviewed Medical history: COPD, GI bleed, hyperlipidemia, hypertension, myocardial infarction Psychiatric history: anxiety - Past Surgical History Surgical History: coronary bypass (CABG), pacemaker/AICD (Pacemaker), other - Social History Smoking Status: Never smoker Smokeless Tobacco Status: No Alcohol use: none Drug use: none Occupational status: retired Current living situation: Assisted Living Activity Level: Independent ambulation Recent Out of Country Travel Within the Last 8 Weeks: No Exposure or Possible Exposure to Illness During Travel: No - Family History Father Adopted: No Living Status: Age at : 81 Cause of : NM Hx Family Cardiac Disorders: Yes (heart attack) Infectious Disease-CN:Meds GuaiFENesin ER [Mucinex] 600 mg PO BID PRN 05/26/15 [History] Albuterol Sulfate [Proair Hfa] 2 puff IH Q4H PRN 10/06/16 [History] Nitroglycerin [Nitrostat] 0.4 mg SL Q5M PRN 10/06/16 [History] Aspirin [Lo-Dose Aspirin EC] 81 mg PO 03/07/17 [History] Esomeprazole Magnesium [Nexium] 40 mg PO DAILY 03/07/17 [History] Fluticasone/Salmeterol [Advair 500-50 Diskus] 1 puff IH BID 03/07/17 [History] Enalapril Maleate [Vasotec] 40 mg PO DAILY 05/29/17 [History] Sennosides/Docusate Sodium [Senna Plus] 1 each PO DAILY PRN tablet 12/13/17 [Rx ] Albuterol Neb [Proventil Neb] 2.5 mg IH Q4H PRN 01/17/18 [History] Bumetanide [Bumex] 1 mg PO Q48H 01/17/18 [History] Levofloxacin [Levaquin] 500 mg PO DAILY 01/17/18 [History] Rivaroxaban [Xarelto] 20 mg PO QPM 01/17/18 [History] Simvastatin [Zocor] 20 mg PO HS 01/17/18 [History] predniSONE [PredniSONE] See Taper PO DAILY 01/17/18 [History] 3 Allergy/AdvReac Type Severity Reaction Status Date / Time naproxen Allergy Swelling Verified 01/07/18 12:35 of Lip/Tongue/Throat aclidinium AdvReac Dizziness Verified 01/07/18 12:35 [From Tudorza Pressair] amlodipine AdvReac Nausea Verified 01/07/18 12:35 fluoxetine AdvReac Hallucinati Verified 01/07/18 12:35 ng lorazepam [From Ativan] AdvReac Nausea Verified 01/07/18 12:35 All systems: reviewed and no additional remarkable complaints except as stated Exam - Constitutional Vitals: Temp Pulse Resp BP Pulse Ox 97.7 F 67 20 149/73 96 01/22/18 07:12 01/22/18 07:12 01/22/18 10:33 01/22/18 07:12 01/22/18 10:33 General appearance: cooperative, no acute distress, obese - Head Head exam: Present: atraumatic, normal inspection, normocephalic - Eye Eye exam: Present: EOMI, normal appearance, PERRL Pupils: Present: normal accommodation Additional comments: No subconjunctival hemorrhage noted. - ENT ENT exam: Present: mucous membranes moist - Neck Neck exam: Present: normal inspection - Respiratory Respiratory exam: Present: rhonchi (Throughout). Absent: rales, respiratory distress, wheezes - Cardiovascular Cardiovascular exam: Present: RRR, +S1, +S2 - GI/Abdominal GI/Abdominal exam: Present: normal bowel sounds, soft. Absent: distended, tenderness - Extremities Exam Extremities exam: Present: normal inspection. Absent: joint swelling, pedal edema, tenderness - Neurological Exam Neurological exam: Present: alert, oriented X3, no focal deficits - Psychiatric Psychiatric exam: Present: normal affect, normal mood - Skin Skin exam: Present: dry, intact, normal color, warm Additional comments: No endocarditis stigmata noted. - Additional findings Additional findings: Pacemaker site noted to the right upper chest without redness, warmth, or tenderness. Infectious Disease CN: Results - Labs CBC & Chem 7: 01/22/18 03:56 01/22/18 03:56 Cultures: Cultures 01/19/18 10:10 Blood Culture - Preliminary Peripheral Venipuncture Enterococcus faecalis 01/21/18 06:58 Blood Culture - Preliminary Peripheral Venipuncture No growth. 01/18/18 17:05 Urine Culture - Final Urine,Ureter Angela albicans 01/20/18 05:15 Blood Culture - Preliminary Peripheral Venipuncture No growth. 01/20/18 05:15 Blood Culture - Preliminary Peripheral Venipuncture No growth. 01/19/18 10:13 Blood Culture - Preliminary Peripheral Venipuncture No growth. Serology: Serology 01/18/18 Range/Units 17:05 Urine Color Yellow (Yellow) Urine Clarity Clear (Clear) Urine pH 5.5 (5.0-8.0) pH Units Ur Specific [place] > 1.030 H (1.010-1.025) Urine Protein Trace (Neg-Trace) mg/dL Urine Glucose (UA) Normal (Normal) mg/dL Urine Ketones Negative (Negative) mg/dL Urine Blood Negative (Negative) Urine Nitrite Negative (Negative) Urine Bilirubin Negative (Negative) Urine Urobilinogen Normal (Normal) mg/dL Ur Leukocyte Esterase Negative (Negative) Urine Microscopic RBC 3-5 H (0-3) per hpf Urine Microscopic WBC 3-5 H (0-3) per hpf Ur Squamous Epith Cells Many H (None-Few) per lpf Urine Bacteria None Seen (None-Few) per hpf Hyaline Casts None Seen (None-Few) per lpf - VTE Documentation of Mechanical Device: Intermittent pneumatic compression device Consult Discharge Plan - Plan Referrals: Delma Zee CNP [Advanced Practice Nurse] - 01/25/18 11:00 am - Attending Attestation I examined this patient and my medical decision-making was reviewed with the Resident Physician. I agree with the documented findings, disposition and treatment plan as described except to the extent set forth below. [place]reck This is an addendum to original report dictated by Ophelia Townsend CNP, please refer to [facility]za for full detail. Patient is an 82-year-old gentleman who has significant past medical history mentioned below including coronary artery disease and history of pacemaker insertion in 2016 here at [place] by Dr. Yañez came into the hospital on January 17 with shortness of breath. The patient presented to the emergency department with a one-week history of increasing shortness of breath and cough productive of yellow sputum. Upon presentation to the ER, the patient was afebrile, but was tachycardic. Laboratory studies revealed a normal white blood cell count, normal renal function, normal lactic acid level. Chest x-ray was negative. A CTA of the chest showed bilateral lower lobe airspace disease, likely pneumonia. Blood cultures were obtained 2 sets. He was started empirically on IV vancomycin, Zosyn, and Levaquin. He was admitted to the hospital for further evaluation. Since admission, the patient has improved clinically. His blood cultures obtained in the emergency department came back +2 out of 2 sets for enterococcus. The patient did have some complaints of dysuria and urinary frequency. A urinalysis was obtained, but appeared contaminated. The specimen was sent for culture, but only grew out Angela. The patient did have a urine culture during his hospitalization back in November that was positive for Enterococcus. Review of the medical record revealed that he only received 1 day of amoxicillin, but it does not look like he received a prescription to continue treatment at home. No blood cultures were obtained during the hospitalization. Repeat blood cultures were obtained on January 19 that were +1 out of 2 sets. Additional blood cultures were repeated on January 20 x2 sets as well as January 21 x 1 set that are no growth to date. At this time, the patient has been off antibiotics since 01/20. We've been asked to evaluate and make further recommendations. Assessment and plan: 1sepsis 2bacteremia with Enterococcus faecalis that is ampicillin sensitive to out of 2 sets 3H Healthcare associated pneumonia causative organism unclear Urinary tract infection Candiduria acute renal failurecreatinine clearance 27-30 At this point we will continue with the Unasyn and dose adjust for creatinine clearance of 30 We will start levofloxacin every 48 hours Await repeat cultures to finalize Patient will need a WESLY prior to discharge to rule out endocarditis, if endocarditis is present we need to discuss removal of the pacemaker versus treating with the ampicillin plus Rocephin Monitor labs and for drug toxicity.
[2018-01-22] MEDS ORDERED: Levofloxacin 750 MG/150 ML 750 MG/150 ML BAG IVPB SCH (14:00)
[2018-01-22] MEDS ORDERED: Ampicillin/Sulbactam 3,000 MG in 0.9 % Sodium Chloride Mini Bag 100 ML IVPB SCH (18:00)
[2018-01-22] MEDS: Ampicillin/Sulbactam 3,000 MG in 0.9 % Sodium Chloride Mini Bag 100 ML IVPB SCH (18:04)
[2018-01-23] MEDS: Ipratropium/Albuterol Neb 3 ML IH SCH ×4 (03:31→21:51)
[2018-01-23 04:50] LABS: Hematocrit 32.9 % (37.5-50.1); Hemoglobin 10.1 g/dL (12.9-16.9); Mean Corpuscular HGB Conc 30.7 g/dL (31.6-35.5); Mean Corpuscular Hemoglobin 26.7 pg (28.0-33.3); Mean Platelet Volume 12.9 fL (9.4-12.4); Platelet Count 139 K/mcL (140-400); Red Blood Count 3.78 M/mcL (4.19-5.50); Red Cell Distribution Width 14.7 % (11.5-14.5)
[2018-01-23] MEDS: Ampicillin/Sulbactam 3,000 MG in 0.9 % Sodium Chloride Mini Bag 100 ML IVPB SCH ×3 (04:52→18:36)
[2018-01-23 05:06] LABS: BUN/Creatinine Ratio 30 (6-26); Blood Urea Nitrogen 29 mg/dL (8-23); Calcium 8.3 mg/dL (8.6-10.3); Carbon Dioxide 28 mEq/L (23-29); Chloride 105 mEq/L (98-107); Glucose 103 mg/dL (70-105); Osmolality,Calculated 292 (280-300); Potassium 4.1 mEq/L (3.5-5.1); Sodium 138 mEq/L (136-145); eGFR For African Americans > 60 (> 60); eGFR For Non-African Americans > 60 (> 60)
--- NOTE | 2018-01-23 09:04 | Infectious Disease Progress No ---
Date of Encounter: 01/23/18 Time of Encounter: 09:02 - Assessment and Plan (1) Sepsis Current Visit: Yes Status: Resolved The patient had two SIRS criteria on admission. Likely secondary to bacteremia and UTI. Improved. Tachycardia and tachypnea have resolved. Blood cultures drawn 01/17/18 were positive 2/2 sets for Enterococcus. Repeat blood cultures drawn 01/19/18 were positive 1/2 sets for Enterococcus. Additional blood cultures drawn 01/20 x 2 sets and 01/21 x 1 set are NGTD. Qualifiers: Sepsis type: sepsis due to unspecified organism Qualified Code(s): A41.9 - Sepsis, unspecified organism (2) Bacteremia due to Enterococcus Current Visit: Yes Status: Acute Causative organism Enterococcus. Source unclear, but high index of suspicion for urinary source given the patient 's recent history of Enterococcus UTI. Blood cultures drawn 01/17/18 were positive 2/2 sets for Enterococcus. Repeat blood cultures drawn 01/19/18 were positive 1/2 sets for Enterococcus. Additional blood cultures drawn 01/20 x 2 sets and 01/21 x 1 set are NGTD. Complicated due to the presence the pacemaker. The patient has one major and two minor Modified Acosta's Criteria. He has no endocarditis stigmata on exam. TTE negative for valvular dysfunction or vegetation, but the windows were suboptimal. Recommend WESLY to evaluate the device leads. Continue Unasyn 3 grams IV Q6H to cover bacteremia and HCAP. Duration of treatment depends on the clinical picture. Monitor renal function and for drug toxicity and dose-adjust antibiotics. (3) HCAP (healthcare-associated pneumonia) Current Visit: Yes Status: Acute Location: Bilateral bases. Causative organism unclear. Low index of suspicion for MRSA pneumonia given the clinical picture. CTA of the chest shows bilateral lower lobe airspace disease, likely PNA. Recently hospitalized back in November for GI bleed. Check sputum culture if the patient is able to provide an adequate specimen. Check S. pneumo and Legionella UAT.--> pending collection. Discussed with nursing. Continue Levaquin 750mg IV Q48H (day 2). Dosed for a creatinine clearance ~30. Continue Unasyn 3 grams IV Q12H (day 2). Duration of treatment depends on the clinical picture. Monitor renal function and dose-adjust antibiotics. (4) UTI (urinary tract infection) Current Visit: No Status: Suspected Urinalysis negative, but not done until the patient had already been on antibiotics for >24 hours. High index of suspicion given the patient's urinary symptoms and recent UTI. Causative organism likely Enteroccocus. Antibiotics as above. Qualifiers: Urinary tract infection type: acute cystitis Hematuria presence: without hematuria Qualified Code(s): N30.00 - Acute cystitis without hematuria (5) Candiduria Current Visit: Yes Status: Acute No indication to treat. (6) ARF (acute renal failure) Current Visit: Yes Status: Acute Serum creatinine up this morning. Etiology unclear. Resolved. Continue to trend. Dose-adjust antibiotics. Avoid nephrotoxins as able. Qualifiers: Acute renal failure type: unspecified Qualified Code(s): N17.9 - Acute kidney failure, unspecified (7) COPD exacerbation Current Visit: Yes Status: Acute Supportive care per the primary team. (8) Obesity (BMI 30-39.9) Current Visit: No Status: Chronic - Subjective Interval history: Patient seen and examined. No acute events noted overnight. Patient sitting up in the bedside chair. States that overall he feels well. Denies fevers, chills, or rigors. Denies chest pain. Reports BRANDON is back to baseline. States he has a cough with minimal sputum production. Denies nausea, vomiting, or diarrhea. Reports had a BM this morning. States he is hungry, but he is currently NPO for WESLY later today. Denies urinary complaints, abdominal pain, or appetite changes. Denies oral thrush or new skin lesions. Denies pain at this time. Infect Dis PN-Objective Data - Labs CBC & Chem 7: 01/23/18 04:34 01/23/18 04:34 Labs: Laboratory Results - last 24 hr 01/23/18 01/23/18 04:34 04:34 WBC 11.0 RBC 3.78 L Hgb 10.1 L Hct 32.9 L MCV 87.0 MCH 26.7 L MCHC 30.7 L RDW 14.7 H Plt Count 139 L MPV 12.9 H Sodium 138 Potassium 4.1 Chloride 105 Carbon Dioxide 28 BUN 29 H Creatinine 0.97 Est GFR ( Amer) > 60 Est GFR (Non-Af Amer) > 60 BUN/Creatinine Ratio 30 H Glucose 103 Calculated Osmolality 292 Calcium 8.3 L Cultures: Cultures 01/19/18 10:10 Blood Culture - Final Peripheral Venipuncture Enterococcus faecalis 01/22/18 03:56 Blood Culture - Preliminary Peripheral Venipuncture No growth. 01/21/18 06:58 Blood Culture - Preliminary Peripheral Venipuncture No growth. 01/18/18 17:05 Urine Culture - Final Urine,Ureter Angela albicans 01/20/18 05:15 Blood Culture - Preliminary Peripheral Venipuncture No growth. 01/20/18 05:15 Blood Culture - Preliminary Peripheral Venipuncture No growth. 01/19/18 10:13 Blood Culture - Preliminary Peripheral Venipuncture No growth. Serology 01/18/18 Range/Units 17:05 Urine Color Yellow (Yellow) Urine Clarity Clear (Clear) Urine pH 5.5 (5.0-8.0) pH Units Ur Specific [place] > 1.030 H (1.010-1.025) Urine Protein Trace (Neg-Trace) mg/dL Urine Glucose (UA) Normal (Normal) mg/dL Urine Ketones Negative (Negative) mg/dL Urine Blood Negative (Negative) Urine Nitrite Negative (Negative) Urine Bilirubin Negative (Negative) Urine Urobilinogen Normal (Normal) mg/dL Ur Leukocyte Esterase Negative (Negative) Urine Microscopic RBC 3-5 H (0-3) per hpf Urine Microscopic WBC 3-5 H (0-3) per hpf Ur Squamous Epith Cells Many H (None-Few) per lpf Urine Bacteria None Seen (None-Few) per hpf Hyaline Casts None Seen (None-Few) per lpf Exam - Constitutional Vitals: Temp Pulse Resp BP Pulse Ox 97.7 F 85 15 156/84 95 01/23/18 07:30 01/23/18 07:30 01/23/18 07:30 01/23/18 07:30 01/23/18 07:30 General appearance: cooperative, no acute distress, obese - Head Head exam: Present: atraumatic, normal inspection, normocephalic - Eye Eye exam: Present: EOMI, normal appearance, PERRL Pupils: Present: normal accommodation Additional comments: No subconjunctival hemorrhage noted. - ENT ENT exam: Present: mucous membranes moist - Neck Neck exam: Present: normal inspection - Respiratory Respiratory exam: Present: rhonchi (Scattered). Absent: rales, respiratory distress, wheezes - Cardiovascular Cardiovascular exam: Present: RRR, +S1, +S2 - GI/Abdominal GI/Abdominal exam: Present: distended (obese), normal bowel sounds, soft. Absent: tenderness - Extremities Exam Extremities exam: Present: normal inspection. Absent: joint swelling, pedal edema, tenderness - Neurological Exam Neurological exam: Present: alert, oriented X3, no focal deficits - Psychiatric Psychiatric exam: Present: normal affect, normal mood - Skin Skin exam: Present: dry, intact, normal color, warm - Additional findings Additional findings: Pacemaker site noted to the left upper chest that is well-healed without redness , warmth, or tenderness. - VTE Documentation of Mechanical Device: Intermittent pneumatic compression device Consult Discharge Plan - Plan Referrals: Delma Zee CNP [Advanced Practice Nurse] - 01/25/18 11:00 am - Attending Attestation I examined this patient and my medical decision-making was reviewed with the Resident Physician. I agree with the documented findings, disposition and treatment plan as described except to the extent set forth below.
[2018-01-23] MEDS: predniSONE 10 MG TABLET PO SCH (10:14)
[2018-01-23] MEDS: Aspirin Enteric Coated 81 MG Tablet PO SCH (10:15)
--- NOTE | 2018-01-23 10:29 | Internal Med Progress Note ---
<Clyde Mc - Last Filed: 01/23/18 17:04> Date of Encounter: 01/23/18 Time of Encounter: 08:45 - Assessment and plan (1) Bacteremia due to Enterococcus Current Visit: Yes Status: Acute Assessment and plan: - Blood cultures grew Enterococcus species (2/2 from 01/17/18, 1/2 from 01/19/18) . Sensitive to ampicillin, daptomycin and vancomycin. - Blood cultures no growth to date (2/2 from 01/20/18, 1/1 from 01/21/18, 1/1 from 01/22/18). - Unknown source at this time but UTI can be one of possible source as urine culture from 12/10/17 also grew Enterococcus species. - Continue Unasyn and levofloxacin as recommended by ID. - TTE on 01/19/18 does not find significant vegetation. - NPO after midnight for WESLY tomorrow. - PICC team consulted. - Duration of antibiotic depends on WESLY result. It will need 6-week course if WESLY suggests endocarditis. (2) ARF (acute renal failure) Current Visit: Yes Status: Resolved Assessment and plan: - SCr 1.51 /eGFR 45 on 01/22/18. - Improves as SCr 0.97 /eGFR > 60 today. - Encourage hydration via oral intake. - Avoid nephrotoxin. - Continue to monitor renal function and electrolytes. Qualifiers: Acute renal failure type: unspecified Qualified Code(s): N17.9 - Acute kidney failure, unspecified (3) Candidal urinary tract infection Current Visit: Yes Status: Acute Assessment and plan: - Urine culture from 01/18/18 grew Angela albicans. - No antifungal therapy indicated given it's asymptomatic at this time but may consider fluconazole if it becomes symptomatic. (4) Acute exacerbation of chronic obstructive airways disease Current Visit: No Status: Acute Assessment and plan: - Likely secondary to acute bacterial bronchitis. - Continue prednisone taper, bronchodilators and supplemental oxygen. (5) Afib Current Visit: No Status: Chronic Assessment and plan: - Continue rate control with metoprolol. - Continue aspirin. Patient was on Xarelto in the past but that was discontinued due to GI bleed. Qualifiers: Atrial fibrillation type: chronic Qualified Code(s): I48.2 - Chronic atrial fibrillation (6) History of coronary artery bypass graft x 3 Current Visit: No Status: Chronic Assessment and plan: - Continue aspirin, metoprolol and simvastatin. (7) Hypertension Current Visit: No Status: Chronic Assessment and plan: - BP within normal range. - Continue current antihypertensive regimen. Qualifiers: Hypertension type: essential hypertension Qualified Code(s): I10 - Essential (primary) hypertension (8) DVT prophylaxis Current Visit: Yes Status: Acute Assessment and plan: - Continue EPCD as mechanical DVT prophylaxis. - Subjective Interval history: Patient was seen and examined this morning. Patient reports feeling well and states he wants to go home. Patient denies fever, chills, shortness of breath, chest pain, abdominal pain. I explained to patient why I recommend him to stay tonight for WESLY, which will be mostly likely done early tomorrow morning according to cardiology. Patient eventually expressed his agreement to stay for the test. - Constitutional Vitals: Temp Pulse Resp BP Pulse Ox 97.7 F 85 15 156/84 95 01/23/18 07:30 01/23/18 07:30 01/23/18 07:30 01/23/18 07:30 01/23/18 07:30 General appearance: Present: mild distress, A&O X 3, no acute distress, answers questions appropriately - Head Head exam: Present: normal inspection - Eye Eye exam: Present: EOMI - Neck Neck exam general surgery: Present: normal inspection, trachea midline - Respiratory Respiratory exam: Present: CTAB - Cardiovascular Cardiovascular exam: Present: RRR, +S1, +S2 - GI/Abdominal GI/Abdominal exam: Present: normal bowel sounds, soft. Absent: tenderness - Extremities Exam Extremities exam: Absent: cyanotic, pedal edema - Neurological Exam Neurological exam: Present: alert, no focal deficits. Absent: facial droop, speech deficit - Skin Skin exam: Present: dry, warm Internal Medicine: Result - Labs CBC & Chem 7: 01/23/18 04:34 01/23/18 04:34 Labs: Short CBC 01/23/18 Range/Units 04:34 WBC 11.0 (4.3-11.1) K/mcL Hgb 10.1 L (12.9-16.9) g/dL Hct 32.9 L (37.5-50.1) % Plt Count 139 L (140-400) K/mcL BMP 01/23/18 04:34 Sodium 138 Potassium 4.1 Chloride 105 Carbon Dioxide 28 BUN 29 H Creatinine 0.97 Glucose 103 Calcium 8.3 L - ABG Interpretation ABG results: ABG ABG pH 7.44 pH Units (7.32-7.45) 01/17/18 15:59 ABG pCO2 42 mmHg (35-45) 01/17/18 15:59 ABG pO2 111 mmHg (85-104) H 01/17/18 15:59 ABG O2 Saturation 99 % (95-98) H 01/17/18 15:59 PT/INR, D-dimer PT 14.3 Seconds (9.4-12.1) H 01/17/18 15:10 - VTE Documentation of Mechanical Device: Intermittent pneumatic compression device Consult Discharge Plan - Plan Referrals: Delma Zee CNP [Advanced Practice Nurse] - 01/25/18 11:00 am <Adam Bursk - Last Filed: 01/23/18 18:24> Date of Encounter: 01/23/18 - Assessment and plan (1) Sepsis Current Visit: Yes Status: Resolved Assessment and plan: Present on admission and has resolved. Qualifiers: Sepsis type: Streptococcus, other Qualified Code(s): A40.8 - Other streptococcal sepsis (2) Bacteremia due to Enterococcus Current Visit: Yes Status: Acute (3) ARF (acute renal failure) Current Visit: Yes Status: Resolved Qualifiers: Acute renal failure type: unspecified Qualified Code(s): N17.9 - Acute kidney failure, unspecified (4) Acute exacerbation of chronic obstructive airways disease Current Visit: No Status: Acute (5) Afib Current Visit: No Status: Chronic Qualifiers: Atrial fibrillation type: chronic Qualified Code(s): I48.2 - Chronic atrial fibrillation (6) Candidal urinary tract infection Current Visit: Yes Status: Acute (7) Hypertension Current Visit: No Status: Chronic Qualifiers: Hypertension type: essential hypertension Qualified Code(s): I10 - Essential (primary) hypertension (8) History of coronary artery bypass graft x 3 Current Visit: No Status: Chronic (9) HCAP (healthcare-associated pneumonia) Current Visit: Yes Status: Acute (10) Anemia Current Visit: No Status: Acute Qualifiers: Anemia type: other cause Other causes of anemia: chronic disease, other Qualified Code(s): D63.8 - Anemia in other chronic diseases classified elsewhere (11) Coronary artery disease Current Visit: No Status: Chronic Qualifiers: Coronary Disease-Associated Artery/Lesion type: bypass graft [place] vs. transplanted heart: [place] heart Associated angina: without angina Qualified Code(s): I25.810 - Atherosclerosis of coronary artery bypass graft(s) without angina pectoris (12) Obesity (BMI 30-39.9) Current Visit: No Status: Chronic - Constitutional Vitals: Temp Pulse Resp BP Pulse Ox 98.6 F 74 15 143/63 91 01/23/18 15:17 01/23/18 15:17 01/23/18 15:17 01/23/18 15:17 01/23/18 15:17 Internal Medicine: Result - Labs CBC & Chem 7: 01/23/18 04:34 01/23/18 04:34 Labs: Short CBC 01/23/18 Range/Units 04:34 WBC 11.0 (4.3-11.1) K/mcL Hgb 10.1 L (12.9-16.9) g/dL Hct 32.9 L (37.5-50.1) % Plt Count 139 L (140-400) K/mcL BMP 01/23/18 04:34 Sodium 138 Potassium 4.1 Chloride 105 Carbon Dioxide 28 BUN 29 H Creatinine 0.97 Glucose 103 Calcium 8.3 L - ABG Interpretation ABG results: ABG ABG pH 7.44 pH Units (7.32-7.45) 01/17/18 15:59 ABG pCO2 42 mmHg (35-45) 01/17/18 15:59 ABG pO2 111 mmHg (85-104) H 01/17/18 15:59 ABG O2 Saturation 99 % (95-98) H 01/17/18 15:59 PT/INR, D-dimer PT 14.3 Seconds (9.4-12.1) H 01/17/18 15:10 - Attending Attestation I examined this patient and my medical decision-making was reviewed with the Resident Physician on 01/23/18. I agree with the documented findings, disposition and treatment plan as described except to the extent set forth below. Mr Davidson is currently admitted for sepsis related to acute enterococcal bacteremia. He remains moderate to high risk due to potential for worsening clinical status. Mr Davidson wants to get up and walk. He wants to go home. No fever or chills. Agrees to WESLY tomorrow. No CP or SOB. Exam alert Comfortable Mucus membranes dry Heart reg No wheeze heard Abd soft I/P 1. Sepsis resolved 2. Enterococcal bacteremia WESLY tomorrow. Further diagnoses and plan as above.
[2018-01-23] MEDS: Budesonide/Formoterol 160/4.5 MDI IH SCH ×2 (10:53→21:52)
[2018-01-23] MEDS: Bumetanide 1 MG TABLET PO SCH (20:01)
[2018-01-23] MEDS: Melatonin 3 MG TABLET PO PRN (20:01)
[2018-01-24] MEDS: Ampicillin/Sulbactam 3,000 MG in 0.9 % Sodium Chloride Mini Bag 100 ML IVPB SCH ×5 (00:35→23:30)
[2018-01-24] MEDS: Ipratropium/Albuterol Neb 3 ML IH SCH ×4 (03:55→22:00)
[2018-01-24 07:29] LABS: Basophils % 0.2 %; Eosinophils % 0.3 %; Hematocrit 34.5 % (37.5-50.1); Hemoglobin 10.9 g/dL (12.9-16.9); Immature Granulocytes % 1.6 % (0-4); Lymphocytes # 2.3 K/mcL (0.6-4.6); Lymphocytes % 18.1 %; Mean Corpuscular HGB Conc 31.6 g/dL (31.6-35.5); Mean Corpuscular Hemoglobin 27.3 pg (28.0-33.3); Mean Corpuscular Volume 86.3 fL (83.0-100.0); Mean Platelet Volume 13.7 fL (9.4-12.4); Monocytes # 0.8 K/mcL (0.0-1.3); Neutrophils # 9.4 K/mcL (1.6-8.9); Nucleated Red Blood Cells 0.2 /100 WBC (0); Platelet Count 135 K/mcL (140-400); Red Cell Distribution Width 14.7 % (11.5-14.5); Segmented Neutrophils % 73.8 %
[2018-01-24 08:16] LABS: BUN/Creatinine Ratio 25 (6-26); Blood Urea Nitrogen 27 mg/dL (8-23); Calcium 8.6 mg/dL (8.6-10.3); Carbon Dioxide 27 mEq/L (23-29); Chloride 104 mEq/L (98-107); Glucose 95 mg/dL (70-105); Osmolality,Calculated 295 (280-300); Potassium 4.1 mEq/L (3.5-5.1); Sodium 140 mEq/L (136-145); eGFR For African Americans > 60 (> 60); eGFR For Non-African Americans > 60 (> 60)
[2018-01-24] MEDS ORDERED: Tetracaine/Benzocaine/Butamben 200MG/SPRAY (100SPY/BOT) MM ONE (08:56)
[2018-01-24] MEDS ORDERED: 0.9 % Sodium Chloride 500 ML IVC ONE (08:56)
[2018-01-24] MEDS: *HR* FentaNYL (PF) 100 MCG/2 ML VIAL IVP PRN ×2 (09:40→09:45)
[2018-01-24] MEDS: *HR* Midazolam HCl 5 MG/5 ML VIAL IVP PRN ×2 (09:40→09:45)
[2018-01-24] MEDS ORDERED: Levofloxacin 750 MG/150 ML 750 MG/150 ML BAG IVPB SCH (10:30)
[2018-01-24] MEDS: Budesonide/Formoterol 160/4.5 MDI IH SCH ×2 (10:44→22:00)
[2018-01-24] MEDS: predniSONE 10 MG TABLET PO SCH (11:53)
[2018-01-24] MEDS: Aspirin Enteric Coated 81 MG Tablet PO SCH (11:54)
--- NOTE | 2018-01-24 12:18 | Infectious Disease Progress No ---
Date of Encounter: 01/24/18 Time of Encounter: 12:16 - Assessment and Plan (1) Sepsis Current Visit: Yes Status: Resolved The patient had two SIRS criteria on admission. Likely secondary to bacteremia and UTI. Improved. Tachycardia and tachypnea have resolved. Blood cultures drawn 01/17/18 were positive 2/2 sets for Enterococcus. Repeat blood cultures drawn 01/19/18 were positive 1/2 sets for Enterococcus. Additional blood cultures drawn 01/20 x 2 sets and 01/21 x 1 set are NGTD. Qualifiers: Sepsis type: Streptococcus, other Qualified Code(s): A40.8 - Other streptococcal sepsis (2) Bacteremia due to Enterococcus Current Visit: Yes Status: Acute Causative organism Enterococcus. Source unclear, but high index of suspicion for urinary source given the patient 's recent history of Enterococcus UTI. Blood cultures drawn 01/17/18 were positive 2/2 sets for Enterococcus. Repeat blood cultures drawn 01/19/18 were positive 1/2 sets for Enterococcus. Additional blood cultures drawn 01/20 x 2 sets and 01/21 x 1 set are NGTD. Complicated due to the presence the pacemaker. The patient has one major and two minor Modified Acosta's Criteria. He has no endocarditis stigmata on exam. TTE negative for valvular dysfunction or vegetation, but the windows were suboptimal. Recommend WESLY to evaluate the device leads. Continue Unasyn 3 grams IV Q6H to cover bacteremia and HCAP. Duration of treatment depends on the clinical picture. Monitor renal function and for drug toxicity and dose-adjust antibiotics. (3) HCAP (healthcare-associated pneumonia) Current Visit: Yes Status: Acute Location: Bilateral bases. Causative organism unclear. Low index of suspicion for MRSA pneumonia given the clinical picture. CTA of the chest shows bilateral lower lobe airspace disease, likely PNA. Recently hospitalized back in November for GI bleed. Check sputum culture if the patient is able to provide an adequate specimen. Check S. pneumo and Legionella UAT.--> pending collection. Discussed with nursing. Continue Levaquin 750mg IV Q48H (day 2). Dosed for a creatinine clearance ~30. Continue Unasyn 3 grams IV Q12H (day 2). Duration of treatment depends on the clinical picture. Monitor renal function and dose-adjust antibiotics. (4) UTI (urinary tract infection) Current Visit: No Status: Suspected Urinalysis negative, but not done until the patient had already been on antibiotics for >24 hours. High index of suspicion given the patient's urinary symptoms and recent UTI. Causative organism likely Enteroccocus. Antibiotics as above. Qualifiers: Urinary tract infection type: acute cystitis Hematuria presence: without hematuria Qualified Code(s): N30.00 - Acute cystitis without hematuria (5) Candiduria Current Visit: Yes Status: Acute No indication to treat. (6) ARF (acute renal failure) Current Visit: Yes Status: Resolved Serum creatinine up this morning. Etiology unclear. Resolved. Continue to trend. Dose-adjust antibiotics. Avoid nephrotoxins as able. Qualifiers: Acute renal failure type: unspecified Qualified Code(s): N17.9 - Acute kidney failure, unspecified (7) COPD exacerbation Current Visit: Yes Status: Acute Supportive care per the primary team. (8) Obesity (BMI 30-39.9) Current Visit: No Status: Chronic - Subjective Interval history: Patient seen and examined. No acute events noted overnight. Patient sitting up in the bedside chair. Patient appears comfortable and states that he feels great and he is starving. Family are at bedside. Patient just came back from a WESLY and final results are pending but preliminary per nursing staff is that there is no vegetation. Patient denies pain anywhere. No bowel movement today last bowel movement was yesterday. No chest pain no shortness of breath. No urinary symptoms. Infect Dis PN-Objective Data - Labs CBC & Chem 7: 01/24/18 06:38 01/24/18 06:38 Labs: Laboratory Results - last 24 hr 01/24/18 01/24/18 06:38 06:38 WBC 12.8 H RBC 4.00 L Hgb 10.9 L Hct 34.5 L MCV 86.3 MCH 27.3 L MCHC 31.6 RDW 14.7 H Plt Count 135 L MPV 13.7 H Immature Gran % 1.6 Seg Neutrophils % 73.8 Lymphocytes % 18.1 Monocytes % 6.0 Eosinophils % 0.3 Basophils % 0.2 Neutrophils # 9.4 H Lymphocytes # 2.3 Monocytes # 0.8 Eosinophils # 0.0 Basophils # 0.0 Nucleated RBCs/100 WBC 0.2 H Sodium 140 Potassium 4.1 Chloride 104 Carbon Dioxide 27 BUN 27 H Creatinine 1.06 Est GFR ( Amer) > 60 Est GFR (Non-Af Amer) > 60 BUN/Creatinine Ratio 25 Glucose 95 Calculated Osmolality 295 Calcium 8.6 Cultures: Cultures 01/23/18 10:25 Legionella Antigen - Final Urine,Clean Catch Streptococcus pneumoniae Antigen (M - Final 01/19/18 10:10 Blood Culture - Final Peripheral Venipuncture Enterococcus faecalis 01/22/18 03:56 Blood Culture - Preliminary Peripheral Venipuncture No growth. 01/21/18 06:58 Blood Culture - Preliminary Peripheral Venipuncture No growth. 01/18/18 17:05 Urine Culture - Final Urine,Ureter Angela albicans 01/20/18 05:15 Blood Culture - Preliminary Peripheral Venipuncture No growth. 01/20/18 05:15 Blood Culture - Preliminary Peripheral Venipuncture No growth. 01/19/18 10:13 Blood Culture - Preliminary Peripheral Venipuncture No growth. Serology 01/18/18 Range/Units 17:05 Urine Color Yellow (Yellow) Urine Clarity Clear (Clear) Urine pH 5.5 (5.0-8.0) pH Units Ur Specific [place] > 1.030 H (1.010-1.025) Urine Protein Trace (Neg-Trace) mg/dL Urine Glucose (UA) Normal (Normal) mg/dL Urine Ketones Negative (Negative) mg/dL Urine Blood Negative (Negative) Urine Nitrite Negative (Negative) Urine Bilirubin Negative (Negative) Urine Urobilinogen Normal (Normal) mg/dL Ur Leukocyte Esterase Negative (Negative) Urine Microscopic RBC 3-5 H (0-3) per hpf Urine Microscopic WBC 3-5 H (0-3) per hpf Ur Squamous Epith Cells Many H (None-Few) per lpf Urine Bacteria None Seen (None-Few) per hpf Hyaline Casts None Seen (None-Few) per lpf Exam - Constitutional Vitals: Temp Pulse Resp BP Pulse Ox 97.9 F 79 17 113/50 96 01/24/18 11:00 01/24/18 11:00 01/24/18 11:00 01/24/18 11:00 01/24/18 11:00 General appearance: no acute distress, no febrile - Head Head exam: Present: atraumatic, normocephalic - Eye Eye exam: Present: sclera anicteric Pupils: Present: PERRL - ENT ENT exam: Present: normal exam - Neck Neck exam: Present: full ROM - Respiratory Respiratory exam: Present: CTAB. Absent: wheezes - Cardiovascular Cardiovascular exam: Present: RRR, +S1, +S2 - GI/Abdominal GI/Abdominal exam: Present: normal bowel sounds, soft, tenderness - Extremities Exam Extremities exam: Present: normal inspection, pedal edema - VTE Documentation of Mechanical Device: Intermittent pneumatic compression device Consult Discharge Plan - Plan Referrals: Delma Zee CNP [Advanced Practice Nurse] - 01/25/18 11:00 am - Attending Attestation I examined this patient and my medical decision-making was reviewed with the Resident Physician. I agree with the documented findings, disposition and treatment plan as described except to the extent set forth below.
[2018-01-24] MEDS: Acetaminophen 325 MG TABLET PO PRN (16:30)
--- NOTE | 2018-01-24 17:21 | Internal Med Progress Note ---
<Clyde Mc - Last Filed: 01/24/18 17:16> Date of Encounter: 01/24/18 Time of Encounter: 10:30 - Assessment and plan (1) Bacteremia due to Enterococcus Current Visit: Yes Status: Acute Assessment and plan: - Blood cultures grew Enterococcus species (2/2 from 01/17/18, 1/2 from 01/19/18) . Sensitive to ampicillin, daptomycin and vancomycin. - Blood cultures no growth to date (2/2 from 01/20/18, 1/1 from 01/21/18, 1/1 from 01/22/18). - Unknown source at this time but UTI can be one of possible source as urine culture from 12/10/17 also grew Enterococcus species. - WESLY on 01/24/18 found no evidence of vegetation. - Continue Unasyn and levofloxacin as recommended by ID. Will likely switch to IV ampicillin on discharge and need total 4-week course. - PICC team consulted. - Possible discharge tomorrow after placement is arranged. 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 - The finding was discussed with patient and his family. Given this is likely chronic condition and patient does not have history of stroke, no urgent intervention is indicated. Continue aspirin. (3) ARF (acute renal failure) Current Visit: Yes Status: Resolved Assessment and plan: - SCr 1.51 /eGFR 45 on 01/22/18. - Resolves as SCr 1.06 /eGFR > 60 today. - Encourage hydration via oral intake. - Avoid nephrotoxin. - Continue to monitor renal function and electrolytes. Qualifiers: Acute renal failure type: unspecified Qualified Code(s): N17.9 - Acute kidney failure, unspecified (4) Candidal urinary tract infection Current Visit: Yes Status: Acute Assessment and plan: - Urine culture from 01/18/18 grew Angela albicans. - No antifungal therapy indicated given it's asymptomatic at this time but may consider fluconazole if it becomes symptomatic. (5) Acute exacerbation of chronic obstructive airways disease Current Visit: No Status: Acute Assessment and plan: - Likely secondary to acute bacterial bronchitis. - Continue prednisone taper, bronchodilators and supplemental oxygen. (6) Afib Current Visit: No Status: Chronic Assessment and plan: - Continue rate control with metoprolol. - Continue aspirin. Patient was on Xarelto in the past but that was discontinued due to GI bleed. Qualifiers: Atrial fibrillation type: chronic Qualified Code(s): I48.2 - Chronic atrial fibrillation (7) History of coronary artery bypass graft x 3 Current Visit: No Status: Chronic Assessment and plan: - Continue aspirin, metoprolol and simvastatin. (8) Hypertension Current Visit: No Status: Chronic Assessment and plan: - BP within normal range. - Continue current antihypertensive regimen. Qualifiers: Hypertension type: essential hypertension Qualified Code(s): I10 - Essential (primary) hypertension (9) DVT prophylaxis Current Visit: Yes Status: Acute Assessment and plan: - Continue EPCD as mechanical DVT prophylaxis. - Subjective Interval history: Patient was seen and examined this morning after patient came back from WESLY. Patient states he is hungry and likes to have food. Patient denies fever, chills , shortness of breath, chest pain, abdominal pain. - Constitutional Vitals: Temp Pulse Resp BP Pulse Ox 97.9 F 64 16 117/74 98 01/24/18 11:00 01/24/18 16:00 01/24/18 16:26 01/24/18 16:00 01/24/18 16:26 General appearance: Present: mild distress, A&O X 3, no acute distress, answers questions appropriately - Head Head exam: Present: normal inspection - Eye Eye exam: Present: EOMI - Neck Neck exam general surgery: Present: normal inspection, trachea midline - Respiratory Respiratory exam: Present: CTAB - Cardiovascular Cardiovascular exam: Present: RRR, +S1, +S2 - GI/Abdominal GI/Abdominal exam: Present: normal bowel sounds, soft. Absent: tenderness - Extremities Exam Extremities exam: Absent: cyanotic, pedal edema - Neurological Exam Neurological exam: Present: alert, no focal deficits. Absent: facial droop, speech deficit - Skin Skin exam: Present: dry, warm Internal Medicine: Result - Labs CBC & Chem 7: 01/24/18 06:38 01/24/18 06:38 Labs: Short CBC 01/24/18 Range/Units 06:38 WBC 12.8 H (4.3-11.1) K/mcL Hgb 10.9 L (12.9-16.9) g/dL Hct 34.5 L (37.5-50.1) % Plt Count 135 L (140-400) K/mcL Neutrophils # 9.4 H (1.6-8.9) K/mcL BMP 01/24/18 06:38 Sodium 140 Potassium 4.1 Chloride 104 Carbon Dioxide 27 BUN 27 H Creatinine 1.06 Glucose 95 Calcium 8.6 - ABG Interpretation ABG results: ABG ABG pH 7.44 pH Units (7.32-7.45) 01/17/18 15:59 ABG pCO2 42 mmHg (35-45) 01/17/18 15:59 ABG pO2 111 mmHg (85-104) H 01/17/18 15:59 ABG O2 Saturation 99 % (95-98) H 01/17/18 15:59 PT/INR, D-dimer PT 14.3 Seconds (9.4-12.1) H 01/17/18 15:10 - VTE Documentation of Mechanical Device: Intermittent pneumatic compression device Consult Discharge Plan - Plan Referrals: Delma Zee CNP [Advanced Practice Nurse] - 01/25/18 11:00 am <Adam Burks - Last Filed: 01/24/18 18:29> Date of Encounter: 01/24/18 - Assessment and plan (1) Sepsis Current Visit: Yes Status: Resolved Qualifiers: Sepsis type: Streptococcus, other Qualified Code(s): A40.8 - Other streptococcal sepsis (2) Bacteremia due to Enterococcus Current Visit: Yes Status: Acute (3) ARF (acute renal failure) Current Visit: Yes Status: Resolved Qualifiers: Acute renal failure type: unspecified Qualified Code(s): N17.9 - Acute kidney failure, unspecified (4) Acute exacerbation of chronic obstructive airways disease Current Visit: No Status: Acute (5) Afib Current Visit: No Status: Chronic Qualifiers: Atrial fibrillation type: chronic Qualified Code(s): I48.2 - Chronic atrial fibrillation (6) Candidal urinary tract infection Current Visit: Yes Status: Acute (7) Hypertension Current Visit: No Status: Chronic Qualifiers: Hypertension type: essential hypertension Qualified Code(s): I10 - Essential (primary) hypertension (8) History of coronary artery bypass graft x 3 Current Visit: No Status: Chronic (9) HCAP (healthcare-associated pneumonia) Current Visit: Yes Status: Acute (10) Anemia Current Visit: No Status: Acute Qualifiers: Anemia type: other cause Other causes of anemia: chronic disease, other Qualified Code(s): D63.8 - Anemia in other chronic diseases classified elsewhere (11) Coronary artery disease Current Visit: No Status: Chronic Qualifiers: Coronary Disease-Associated Artery/Lesion type: bypass graft [place] vs. transplanted heart: [place] heart Associated angina: without angina Qualified Code(s): I25.810 - Atherosclerosis of coronary artery bypass graft(s) without angina pectoris (12) Obesity (BMI 30-39.9) Current Visit: No Status: Chronic - Constitutional Vitals: Temp Pulse Resp BP Pulse Ox 97.9 F 64 16 117/74 98 01/24/18 11:00 01/24/18 16:00 01/24/18 16:26 01/24/18 16:00 01/24/18 16:26 Internal Medicine: Result - Labs CBC & Chem 7: 01/24/18 06:38 01/24/18 06:38 Labs: Short CBC 01/24/18 Range/Units 06:38 WBC 12.8 H (4.3-11.1) K/mcL Hgb 10.9 L (12.9-16.9) g/dL Hct 34.5 L (37.5-50.1) % Plt Count 135 L (140-400) K/mcL Neutrophils # 9.4 H (1.6-8.9) K/mcL BMP 01/24/18 06:38 Sodium 140 Potassium 4.1 Chloride 104 Carbon Dioxide 27 BUN 27 H Creatinine 1.06 Glucose 95 Calcium 8.6 - ABG Interpretation ABG results: ABG ABG pH 7.44 pH Units (7.32-7.45) 01/17/18 15:59 ABG pCO2 42 mmHg (35-45) 01/17/18 15:59 ABG pO2 111 mmHg (85-104) H 01/17/18 15:59 ABG O2 Saturation 99 % (95-98) H 01/17/18 15:59 PT/INR, D-dimer PT 14.3 Seconds (9.4-12.1) H 01/17/18 15:10 - Attending Attestation I examined this patient and my medical decision-making was reviewed with the Resident Physician on 01/24/18. I agree with the documented findings, disposition and treatment plan as described except to the extent set forth below. Mr Davidson is currently admitted for acute enterococcal bacteremia. He had WESLY today. He remains moderate to high risk due to potential for worsening clinical status. Mr Davidson is doing OK post WESLY. No fever or chills. No endocarditis on WESLY. Has PFO. Up and walking in hallway Exam Alert Comfortable Mucus membranes dry Heart reg No wheeze I/P 1. Enterococcal bacteremia Further diagnoses and plan as above.
[2018-01-24] MEDS: Melatonin 3 MG TABLET PO PRN (21:00)
[2018-01-24] MEDS: Ipratropium/Albuterol Neb 3 ML IH PRN (23:53)
[2018-01-25] MEDS: Ipratropium/Albuterol Neb 3 ML IH SCH ×2 (03:33→11:07)
[2018-01-25 04:58] LABS: Basophils % 0.2 %; Eosinophils % 0.1 %; Hematocrit 31.2 % (37.5-50.1); Hemoglobin 9.6 g/dL (12.9-16.9); Immature Granulocytes % 1.2 % (0-4); Lymphocytes # 2.1 K/mcL (0.6-4.6); Lymphocytes % 17.9 %; Mean Corpuscular HGB Conc 30.8 g/dL (31.6-35.5); Mean Corpuscular Hemoglobin 26.7 pg (28.0-33.3); Mean Corpuscular Volume 86.7 fL (83.0-100.0); Monocytes # 0.5 K/mcL (0.0-1.3); Monocytes % 4.6 %; Neutrophils # 8.8 K/mcL (1.6-8.9); Platelet Count 124 K/mcL (140-400); Red Cell Distribution Width 14.9 % (11.5-14.5)
[2018-01-25 05:09] LABS: BUN/Creatinine Ratio 26 (6-26); Blood Urea Nitrogen 26 mg/dL (8-23); Calcium 8.2 mg/dL (8.6-10.3); Carbon Dioxide 28 mEq/L (23-29); Chloride 106 mEq/L (98-107); Glucose 147 mg/dL (70-105); Osmolality,Calculated 293 (280-300); Potassium 3.7 mEq/L (3.5-5.1); Sodium 138 mEq/L (136-145); eGFR For African Americans > 60 (> 60); eGFR For Non-African Americans > 60 (> 60)
[2018-01-25 05:42] LABS: Troponin I 0.03 ng/mL (< 0.04)
[2018-01-25] MEDS: Ampicillin/Sulbactam 3,000 MG in 0.9 % Sodium Chloride Mini Bag 100 ML IVPB SCH ×2 (06:02→12:10)
--- NOTE | 2018-01-25 08:32 | Discharge Summary ---
<Clyde Mc - Last Filed: 01/25/18 17:54> Orders not resulted at time of discharge: Pending orders 01/21/18 06:58 Culture,Blood [BC] AM 0400 01/22/18 03:56 Culture,Blood [BC] AM 0400 01/25/18 04:01 EKG [ECG 12 lead ECG] [ECG] Stat Date of Encounter: 01/25/18 Time of Encounter: 08:00 - Discharge Diagnosis (1) Bacteremia due to Enterococcus Priority: Primary Status: Acute (2) HCAP (healthcare-associated pneumonia) Priority: Secondary Status: Acute (3) ARF (acute renal failure) Priority: Secondary Status: Resolved Qualifiers: Acute renal failure type: unspecified Qualified Code(s): N17.9 - Acute kidney failure, unspecified (4) Candidal urinary tract infection Priority: Secondary Status: Acute (5) Acute exacerbation of chronic obstructive airways disease Priority: Secondary Status: Acute (6) Afib Priority: Secondary Status: Chronic Qualifiers: Atrial fibrillation type: chronic Qualified Code(s): I48.2 - Chronic atrial fibrillation (7) History of coronary artery bypass graft x 3 Priority: Secondary Status: Chronic (8) Hypertension Priority: Secondary Status: Chronic Qualifiers: Hypertension type: essential hypertension Qualified Code(s): I10 - Essential (primary) hypertension (9) PFO (patent foramen ovale) Priority: Secondary Status: Chronic Hospital course: Mr. Davidson is a 82 year old male with PMH of CAD s/p CABG, with pacemaker, HTN, COPD and history of GI bleed who presented with complaint of worsening dyspnea. Chest CTA found no evidence of PE but bilateral lower lobe airspace disease concerning of pneumonia. Patient was admitted on 01/17/18 for healthcare associated pneumona and started on IV vancomycin, Zosyn and levofloxacin along with IV Solu-Medrol and bronchodilators for COPD exacerbation. Patient has blood cultures grow Enterococcus species (2/2 from 01/17/18, 1/2 from 01/19/18), which is sensitive to ampicillin, daptomycin and vancomycin. Infectious disease was consulted for Enterococcus bacteremia and antibiotic regimen was changed to IV Unasyn and levofloxacin. WESLY on 01/24/18 found no evidence of vegetation. Repeated blood cultures on 01/20/18 and after had no growth. PICC line insertion via right basilic vein was done on 01/25/18, Given patient's respiratory status improves and patient remains hemodynamically stable, patient can be discharged to [facility] where patient will continue IV ampicillin therapy through 02/18/18. Patient will take prescribed metoprolol tartrate 12.5 mg oral twice a day for hypertension. Patient was also instructed to finish prescribed prednisone taper (20 mg x 3 days then 10 mg x 3 days). Patient will need follow-up with [facility] infectious disease specialist at 9:20 am on 02/08/18 regarding his Enterococcus bacteremia. Patient was also recommended to follow up with his primary care provider within a week. Patient expressed his understanding and discharge plan. All questions were answered. Discharge discussed with: patient - Time Spent with Patient Total time spent providing and/or coordinating discharge services: Greater than 30 minutes (45 minutes) - Discharge Medications Prescriptions: Ampicillin 12,000 mg IVC Q24H #24 vial Metoprolol [Lopressor] 12.5 mg PO BID #30 tablet predniSONE [PredniSONE] See Taper PO DAILY #9 tablet Home Medications: GuaiFENesin ER [Mucinex] 600 mg PO BID PRN 05/26/15 [History] Albuterol Sulfate [Proair Hfa] 2 puff IH Q4H PRN 10/06/16 [History] Nitroglycerin [Nitrostat] 0.4 mg SL Q5M PRN 10/06/16 [History] Aspirin [Lo-Dose Aspirin EC] 81 mg PO 03/07/17 [History] Esomeprazole Magnesium [Nexium] 40 mg PO DAILY 03/07/17 [History] Fluticasone/Salmeterol [Advair 500-50 Diskus] 1 puff IH BID 03/07/17 [History] Enalapril Maleate [Vasotec] 40 mg PO DAILY 05/29/17 [History] Sennosides/Docusate Sodium [Senna Plus] 1 each PO DAILY PRN tablet 12/13/17 [Rx ] Albuterol Neb [Proventil Neb] 2.5 mg IH Q4H PRN 01/17/18 [History] Bumetanide [Bumex] 1 mg PO Q48H 01/17/18 [History] Simvastatin [Zocor] 20 mg PO HS 01/17/18 [History] Ampicillin 12,000 mg IVC Q24H #24 vial 01/25/18 [Rx] Metoprolol [Lopressor] 12.5 mg PO BID #30 tablet 01/25/18 [Rx] predniSONE [PredniSONE] See Taper PO DAILY #9 tablet 01/25/18 [Rx] Allergies/Adverse Reactions: 3 Allergy/AdvReac Type Severity Reaction Status Date / Time naproxen Allergy Swelling Verified 01/07/18 12:35 of Lip/Tongue/Throat aclidinium AdvReac Dizziness Verified 01/07/18 12:35 [From Tudorza Pressair] amlodipine AdvReac Nausea Verified 01/07/18 12:35 fluoxetine AdvReac Hallucinati Verified 01/07/18 12:35 ng lorazepam [From Ativan] AdvReac Nausea Verified 01/07/18 12:35 Date of admission: 01/17/18 20:57 Primary care physician: Tyrone Duong MD Consults: 01/21/18 08:29 Consult to Infectious Diseases [CONS] Routine Consulting Provider: Infectious [facility] [place] Reason for Consult: enterococcus bacteremia Call Completed: No 01/23/18 09:49 PICC Consult [Consult to Invasive Line Access Team] [CONS] Routine Reason for Consult: Need IV antibiotic after discharge (likely 4 or 6 weeks) Line Type: EPIV 01/24/18 12:13 Consult to Skiver Operator [CONS] Routine Reason for SW Consult: Need weeks of IV antibiotic. Appreciate assistance regarding placement Discharging clinician: Clyde Mc Anticipated date of discharge: 01/25/18 - Constitutional Vitals: Temp Pulse Resp BP Pulse Ox 98.1 F 72 18 170/94 96 01/25/18 07:00 01/25/18 07:00 01/25/18 07:00 01/25/18 07:00 01/25/18 07:00 General appearance: Present: A&O X 3, no acute distress, answers questions appropriately - Head Head exam: Present: normal inspection - Eye Eye exam: Present: EOMI - Neck Neck exam general surgery: Present: normal inspection, trachea midline - Respiratory Respiratory exam: Present: decreased breath sounds - Cardiovascular Cardiovascular exam: Present: RRR, +S1, +S2 - GI/Abdominal GI/Abdominal exam: Present: normal bowel sounds, soft. Absent: tenderness - Extremities Exam Extremities exam: Absent: cyanotic, pedal edema - Neurological Exam Neurological exam: Present: alert, no focal deficits. Absent: facial droop, speech deficit - Skin Skin exam: Present: dry, warm - Patient Status Disposition: Transfer SNF Condition: Fair Functional capacity at discharge: uses cane/walker Overall status at discharge: patient is progressing back to baseline - Discharge Instructions Instructions: Chronic Obstructive Pulmonary Disease (DC), Sepsis (DC) Follow Up With: Delma Zee CNP [Advanced Practice Nurse] - 01/25/18 11:00 am (Within a week. ) Additional Instructions: Please continue ampicillin 12 gram IV continuous q24 hours through 02/18/18. Please take prescribed metoprolol tartrate 12.5 mg oral twice a day for your hypertension. Please take prescribed prednisone taper (20 mg x 3 days then 10 mg x 3 days). Please follow up with [facility] infectious disease specialist at 9:20 am on 02/08/18 regarding your infection. Please follow up with your primary care provider within a week. - Diet and Activity Activity: increase activity as tolerated Diet: low fat, low cholesterol - VTE Documentation of Mechanical Device: Intermittent pneumatic compression device <Adam Burks - Last Filed: 01/25/18 19:32> Orders not resulted at time of discharge: Pending orders 01/21/18 06:58 Culture,Blood [BC] AM 0400 01/22/18 03:56 Culture,Blood [BC] AM 0400 Date of Encounter: 01/25/18 - Discharge Diagnosis (1) Sepsis Priority: Primary Status: Resolved Qualifiers: Sepsis type: Streptococcus, other Qualified Code(s): A40.8 - Other streptococcal sepsis (2) Bacteremia due to Enterococcus Status: Acute (3) Acute exacerbation of chronic obstructive airways disease Status: Resolved (4) Afib Status: Chronic Qualifiers: Atrial fibrillation type: chronic Qualified Code(s): I48.2 - Chronic atrial fibrillation (5) Candidal urinary tract infection Status: Resolved (6) Hypertension Status: Chronic Qualifiers: Hypertension type: essential hypertension Qualified Code(s): I10 - Essential (primary) hypertension (7) History of coronary artery bypass graft x 3 Status: Chronic (8) HCAP (healthcare-associated pneumonia) Status: Acute (9) Anemia Priority: Secondary Status: Chronic Qualifiers: Anemia type: other cause Other causes of anemia: chronic disease, other Qualified Code(s): D63.8 - Anemia in other chronic diseases classified elsewhere (10) Coronary artery disease Priority: Secondary Status: Chronic Qualifiers: Coronary Disease-Associated Artery/Lesion type: bypass graft [place] vs. transplanted heart: [place] heart Associated angina: without angina Qualified Code(s): I25.810 - Atherosclerosis of coronary artery bypass graft(s) without angina pectoris (11) Obesity (BMI 30-39.9) Priority: Secondary Status: Chronic Hospital course: Mr. Davidson is a 82 year old male - Time Spent with Patient Total time spent providing and/or coordinating discharge services: 39min Date of admission: 01/17/18 20:57 Primary care physician: Tyrone Duong MD Consults: 01/21/18 08:29 Consult to Infectious Diseases [CONS] Routine Consulting Provider: Infectious Disease [facility] Reason for Consult: enterococcus bacteremia Call Completed: No 01/23/18 09:49 PICC Consult [Consult to Invasive Line Access Team] [CONS] Routine Reason for Consult: Need IV antibiotic after discharge (likely 4 or 6 weeks) Line Type: PICC 01/24/18 12:13 Consult to Skiver Operator [CONS] Routine Reason for SW Consult: Need weeks of IV antibiotic. Appreciate assistance regarding placement - Constitutional Vitals: Temp Pulse Resp BP Pulse Ox 97.9 F 76 30 166/91 98 01/25/18 11:00 01/25/18 11:00 01/25/18 11:07 01/25/18 11:00 01/25/18 11:07 - Attending Attestation I examined this patient and my medical decision-making was reviewed with the Resident Physician on 01/25/18. I agree with the documented findings, disposition and treatment plan as described except to the extent set forth below. Mr Davidson has been admitted for enterococcal sepsis. He is doing better and is agreeable to rehab to complete IV abx and therapy. Today he feels OK and is afebrile. He is ready to go to rehab. Exam alert Comfortable Mucus membranes dry Heart not tachy Lungs clear at this time Plan D/C to SNF today.
[2018-01-25] MEDS ORDERED: Lidocaine -MPF 1% 5 ML AMPUL INFILT ONE (09:41)
[2018-01-25] MEDS: predniSONE 10 MG TABLET PO SCH (09:52)
[2018-01-25] MEDS: Aspirin Enteric Coated 81 MG Tablet PO SCH (09:52)
[2018-01-25] MEDS: Budesonide/Formoterol 160/4.5 MDI IH SCH (11:07)
--- NOTE | 2018-01-25 11:26 | Infectious Disease Progress No ---
Date of Encounter: 01/25/18 Time of Encounter: 11:24 - Assessment and Plan (1) Sepsis Current Visit: Yes Status: Resolved The patient had two SIRS criteria on admission. Likely secondary to bacteremia and UTI. Improved. Tachycardia and tachypnea have resolved. Blood cultures drawn 01/17/18 were positive 2/2 sets for Enterococcus. Repeat blood cultures drawn 01/19/18 were positive 2/2 sets for Enterococcus. Additional blood cultures drawn 01/20 x 2 sets and 01/21 x 1 set are negative. Qualifiers: Sepsis type: Streptococcus, other Qualified Code(s): A40.8 - Other streptococcal sepsis (2) Bacteremia due to Enterococcus Current Visit: Yes Status: Acute Causative organism Enterococcus. Source unclear, but high index of suspicion for urinary source given the patient 's recent history of Enterococcus UTI. Blood cultures drawn 01/17/18 were positive 2/2 sets for Enterococcus. Repeat blood cultures drawn 01/19/18 were positive 2/2 sets for Enterococcus. Additional blood cultures drawn 01/20 x 2 sets and 01/21 x 1 set are negative. Complicated due to the presence the pacemaker. The patient has one major and two minor Modified Acosta's Criteria. He has no endocarditis stigmata on exam. TTE negative for valvular dysfunction or vegetation, but the windows were suboptimal. Recommend WESLY to evaluate the device leads. Continue Unasyn 3 grams IV Q6H to cover bacteremia and HCAP. Duration of treatment depends on the clinical picture, but likely 4 weeks from the first set of negative blood cultures. Okay to switch to Ampicillin on discharge, either Q4H dosing or 24 hour continuous IV infusion, depending on the patient's discharge plan. Treat through 02/18/18. Monitor renal function and for drug toxicity and dose-adjust antibiotics. Midline placed today. Will need weekly CBC, BUN/Cr. Will need weekly IV care. Follow up with ID 02/08/18 at 0920. (3) HCAP (healthcare-associated pneumonia) Current Visit: Yes Status: Acute Location: Bilateral bases. Causative organism unclear. Low index of suspicion for MRSA pneumonia given the clinical picture. CTA of the chest shows bilateral lower lobe airspace disease, likely PNA. Recently hospitalized back in November for GI bleed. Check sputum culture if the patient is able to provide an adequate specimen. S. pneumo and Legionella UAT negative. Continue Levaquin 750mg IV Q24H (day 4). Continue Unasyn 3 grams IV Q12H (day 4). Duration of treatment depends on the clinical picture. Recommend treating for a total of 10 days. Can switch to PO Levaquin when ready for discharge. Monitor renal function and dose-adjust antibiotics. (4) UTI (urinary tract infection) Current Visit: No Status: Suspected Urinalysis negative, but not done until the patient had already been on antibiotics for >24 hours. High index of suspicion given the patient's urinary symptoms and recent UTI. Causative organism likely Enteroccocus. Antibiotics as above. Qualifiers: Urinary tract infection type: acute cystitis Hematuria presence: without hematuria Qualified Code(s): N30.00 - Acute cystitis without hematuria (5) Candiduria Current Visit: Yes Status: Acute No indication to treat. (6) ARF (acute renal failure) Current Visit: Yes Status: Resolved Serum creatinine up this morning. Etiology unclear. Resolved. Continue to trend. Dose-adjust antibiotics. Avoid nephrotoxins as able. Qualifiers: Acute renal failure type: unspecified Qualified Code(s): N17.9 - Acute kidney failure, unspecified (7) COPD exacerbation Current Visit: Yes Status: Acute Supportive care per the primary team. (8) Obesity (BMI 30-39.9) Current Visit: No Status: Chronic - Subjective Interval history: Patient seen and examined. No acute events noted overnight. Patient states his breathing is okay today, appears back at baseline. States that overall he feels well. Denies fevers, chills, or rigors. Denies chest pain. States he has a cough with minimal sputum production. Denies nausea, vomiting, or diarrhea. Reports had a BM this morning. States he ate breakfast without a problem. Denies urinary complaints, abdominal pain, or appetite changes. Denies oral thrush or new skin lesions. Denies pain at this time. States he wants to go for a walk. Infect Dis PN-Objective Data - Labs CBC & Chem 7: 01/25/18 04:15 01/25/18 04:15 Labs: Laboratory Results - last 24 hr 01/25/18 01/25/18 04:15 04:15 WBC 11.6 H RBC 3.60 L Hgb 9.6 L Hct 31.2 L MCV 86.7 MCH 26.7 L MCHC 30.8 L RDW 14.9 H Plt Count 124 L MPV 13.0 H Immature Gran % 1.2 Seg Neutrophils % 76.0 Lymphocytes % 17.9 Monocytes % 4.6 Eosinophils % 0.1 Basophils % 0.2 Neutrophils # 8.8 Lymphocytes # 2.1 Monocytes # 0.5 Eosinophils # 0.0 Basophils # 0.0 Sodium 138 Potassium 3.7 Chloride 106 Carbon Dioxide 28 BUN 26 H Creatinine 0.99 Est GFR ( Amer) > 60 Est GFR (Non-Af Amer) > 60 BUN/Creatinine Ratio 26 Glucose 147 H Calculated Osmolality 293 Calcium 8.2 L Troponin I 0.03 Cultures: Cultures 01/19/18 10:13 Blood Culture - Final Peripheral Venipuncture Enterococcus faecalis 01/20/18 05:15 Blood Culture - Final Peripheral Venipuncture No growth. 01/20/18 05:15 Blood Culture - Final Peripheral Venipuncture No growth. 01/23/18 10:25 Legionella Antigen - Final Urine,Clean Catch Streptococcus pneumoniae Antigen (M - Final 01/19/18 10:10 Blood Culture - Final Peripheral Venipuncture Enterococcus faecalis 01/22/18 03:56 Blood Culture - Preliminary Peripheral Venipuncture No growth. 01/21/18 06:58 Blood Culture - Preliminary Peripheral Venipuncture No growth. 01/18/18 17:05 Urine Culture - Final Urine,Ureter Angela albicans Serology 01/18/18 Range/Units 17:05 Urine Color Yellow (Yellow) Urine Clarity Clear (Clear) Urine pH 5.5 (5.0-8.0) pH Units Ur Specific Hubert[place] > 1.030 H (1.010-1.025) Urine Protein Trace (Neg-Trace) mg/dL Urine Glucose (UA) Normal (Normal) mg/dL Urine Ketones Negative (Negative) mg/dL Urine Blood Negative (Negative) Urine Nitrite Negative (Negative) Urine Bilirubin Negative (Negative) Urine Urobilinogen Normal (Normal) mg/dL Ur Leukocyte Esterase Negative (Negative) Urine Microscopic RBC 3-5 H (0-3) per hpf Urine Microscopic WBC 3-5 H (0-3) per hpf Ur Squamous Epith Cells Many H (None-Few) per lpf Urine Bacteria None Seen (None-Few) per hpf Hyaline Casts None Seen (None-Few) per lpf Exam - Constitutional Vitals: Temp Pulse Resp BP Pulse Ox 98.1 F 72 18 170/94 96 01/25/18 07:00 01/25/18 07:00 01/25/18 07:00 01/25/18 07:00 01/25/18 07:00 General appearance: cooperative, no acute distress, obese - Head Head exam: Present: atraumatic, normal inspection, normocephalic - Eye Eye exam: Present: EOMI, normal appearance, PERRL Pupils: Present: normal accommodation - ENT ENT exam: Present: mucous membranes moist - Neck Neck exam: Present: normal inspection - Respiratory Respiratory exam: Present: CTAB. Absent: rales, respiratory distress, rhonchi, wheezes - Cardiovascular Cardiovascular exam: Present: irregular rhythm. Absent: tachycardia - GI/Abdominal GI/Abdominal exam: Present: distended (obese), normal bowel sounds, soft. Absent: tenderness - Extremities Exam Extremities exam: Present: normal inspection. Absent: joint swelling, pedal edema, tenderness - Neurological Exam Neurological exam: Present: alert, oriented X3, no focal deficits - Psychiatric Psychiatric exam: Present: normal affect, normal mood - Skin Skin exam: Present: dry, intact, normal color, warm - VTE Documentation of Mechanical Device: Intermittent pneumatic compression device Consult Discharge Plan - Plan Referrals: Delma Zee CNP [Advanced Practice Nurse] - 01/25/18 11:00 am
[2018-01-25 11:43] VITALS: BP 166/91
--- NOTE | 2018-01-25 12:16 | Physician Discharge Referral ---
ExtendedCare Referral Info Transfer To: [facility] Provider in Charge after Transfer: PCP Institutional Level of Care: Skilled - Diagnosis (1) Bacteremia due to Enterococcus Priority: Primary Status: Acute (2) HCAP (healthcare-associated pneumonia) Priority: Primary Status: Acute (3) ARF (acute renal failure) Priority: Secondary Status: Resolved (4) Candidal urinary tract infection Priority: Secondary Status: Acute (5) Acute exacerbation of chronic obstructive airways disease Priority: Secondary Status: Acute (6) Afib Priority: Secondary Status: Chronic (7) History of coronary artery bypass graft x 3 Priority: Secondary Status: Chronic (8) Hypertension Priority: Secondary Status: Chronic (9) PFO (patent foramen ovale) Priority: Secondary Status: Chronic - Transfer Medications Prescriptions: Ampicillin 12,000 mg IVC Q24H #24 vial Metoprolol [Lopressor] 12.5 mg PO BID #30 tablet predniSONE [PredniSONE] See Taper PO DAILY #9 tablet Home Medications: GuaiFENesin ER [Mucinex] 600 mg PO BID PRN 05/26/15 [History] Albuterol Sulfate [Proair Hfa] 2 puff IH Q4H PRN 10/06/16 [History] Nitroglycerin [Nitrostat] 0.4 mg SL Q5M PRN 10/06/16 [History] Aspirin [Lo-Dose Aspirin EC] 81 mg PO 03/07/17 [History] Esomeprazole Magnesium [Nexium] 40 mg PO DAILY 03/07/17 [History] Fluticasone/Salmeterol [Advair 500-50 Diskus] 1 puff IH BID 03/07/17 [History] Enalapril Maleate [Vasotec] 40 mg PO DAILY 05/29/17 [History] Sennosides/Docusate Sodium [Senna Plus] 1 each PO DAILY PRN tablet 12/13/17 [Rx ] Albuterol Neb [Proventil Neb] 2.5 mg IH Q4H PRN 01/17/18 [History] Bumetanide [Bumex] 1 mg PO Q48H 01/17/18 [History] Simvastatin [Zocor] 20 mg PO HS 01/17/18 [History] Ampicillin 12,000 mg IVC Q24H #24 vial 01/25/18 [Rx] Metoprolol [Lopressor] 12.5 mg PO BID #30 tablet 01/25/18 [Rx] predniSONE [PredniSONE] See Taper PO DAILY #9 tablet 01/25/18 [Rx] Allergies/Adverse Reactions: 3 Allergy/AdvReac Type Severity Reaction Status Date / Time naproxen Allergy Swelling Verified 01/07/18 12:35 of Lip/Tongue/Throat aclidinium AdvReac Dizziness Verified 01/07/18 12:35 [From Tudorza Pressair] amlodipine AdvReac Nausea Verified 01/07/18 12:35 fluoxetine AdvReac Hallucinati Verified 01/07/18 12:35 ng lorazepam [From Ativan] AdvReac Nausea Verified 01/07/18 12:35 - Respiratory Orders Oxygen / L per min (2L) Smoking Cessation: Smoking cessation has been advised. For more information, call the [place] Tobacco Quit Line at 8-726-PVIT-NOW. - Lab Orders Lab Orders: CBC (weekly), Other (include drug levels w/frequency) (BUN/Cr weekly ) - Mobility Orders Ambulate - Diet Orders Cardiac CERTIFICATION: I certify that the transfer of the above named patient to an Extended Care Facility is necessary for the continuing treatment of the diagnosis listed. The above information is true and accurate reflection of patient's current condition. Confidential - Redisclosure prohibited without a patient's written consent.
--- NOTE | 2018-01-27 13:28 | Electrocardiograph Report ---
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
== END 2018-01-25 14:44 | DRG 871 ==
LOC: 2NENU 14:27 → EMEROO 14:27 → 2NENU 20:00 → SUATTDRO 20:57
PROVIDERS: ADMIT Internal Medicine; ATTEND Internal Medicine

== ENCOUNTER 2021-04-15 17:16 | Inpatient (IN) ==
[2021-04-15] MEDS ORDERED: 0.9 % Sodium Chloride 1,000 ML ONE (17:25)
[2021-04-15] MEDS ORDERED: Heparin 1,000 UNITS/500 mL 500 ML ONE (17:25)
[2021-04-15] MEDS ORDERED: *HR* Heparin 10,000 UNIT/10 ML VIAL ONE (17:25)
[2021-04-15] MEDS ORDERED: Tirofiban 12.5 MG/250ML 12.5 MG/250 ML BAG ONE (17:25)
[2021-04-15] MEDS ORDERED: Nitroglycerin 1,000 MCG/5 ML VIAL IV ONE (17:25)
[2021-04-15] MEDS ORDERED: ISOVUE-370 200 ML INFUS..BTL ONE (17:25)
[2021-04-15] MEDS ORDERED: *HR* Ticagrelor 90 MG TABLET PO ONE (17:32)
[2021-04-15] MEDS ORDERED: Nitroglycerin 0.4 MG TAB.SUBL SL ONE (17:32)
[2021-04-15] MEDS: Nitroglycerin 0.4 MG TAB.SUBL SL PRN (17:34)
[2021-04-15 17:42] LABS: Hemoglobin 11.7 g/dL (12.9-16.9); Immature Granulocytes % 0.4 % (0-4); Red Cell Distribution Width 13.2 % (11.5-14.5); White Blood Count 11.6 K/mcL (4.3-11.1)
[2021-04-15 17:43] LABS: Basophils # 0.1 K/mcL (0.0-0.2); Basophils % 0.4 %; Eosinophils # 0.2 K/mcL (0.0-0.6); Eosinophils % 1.4 %; Hematocrit 36.3 % (37.5-50.1); Immature Platelets 13.1 % (1.1-6.1); Lymphocytes # 2.1 K/mcL (0.6-4.6); Lymphocytes % 18.3 %; Mean Corpuscular HGB Conc 32.2 g/dL (31.6-35.5); Mean Corpuscular Hemoglobin 30.9 pg (28.0-33.3); Mean Corpuscular Volume 95.8 fL (83.0-100.0); Mean Platelet Volume 13.2 fL (9.4-12.4); Monocytes # 0.9 K/mcL (0.0-1.3); Neutrophils # 8.3 K/mcL (1.6-8.9); Red Blood Count 3.79 M/mcL (4.19-5.50); Segmented Neutrophils % 71.5 %
[2021-04-15] MEDS ORDERED: *HR* Metoprolol 5 MG/5 ML VIAL IVP ONE (17:49)
[2021-04-15 18:03] LABS: Albumin 3.7 g/dL (3.5-5.7); Albumin/Globulin Ratio 1.7 (1.1-2.2); Bilirubin,Direct 0.1 mg/dL (0.0-0.2); Bilirubin,Indirect 0.7 mg/dL (0.0-1.0); Bilirubin,Total 0.8 mg/dL (0.3-1.0); Calcium 8.8 mg/dL (8.6-10.3); Globulin 2.2 g/dL (2.4-3.5); Potassium 4.4 mEq/L (3.5-5.1); Total Protein 5.9 g/dL (6.4-8.9); Troponin I 7.52 ng/mL (< 0.04)
[2021-04-15 18:07] LABS: Platelet Count 87 K/mcL (140-400)
[2021-04-15] MEDS ORDERED: Perflutren Lipid Microsphere 1.3 ML in 0.9 % Sodium Chloride 8.7 ML IVP PRN (22:50)
[2021-04-15] MEDS ORDERED: Naloxone 0.4 MG/ML INJ IVP PRN (22:50)
[2021-04-16] MEDS ORDERED: Bumetanide 1 MG TABLET PO SCH (00:15)
[2021-04-16] MEDS: predniSONE 20 MG TABLET PO SCH ×2 (00:32→07:47)
[2021-04-16] MEDS: Ipratropium/Albuterol Neb 3 ML IH SCH ×3 (03:49→16:03)
[2021-04-16 06:08] LABS: Basophils % 0.3 %; Eosinophils % 0.2 %; Hematocrit 39.6 % (37.5-50.1); Hemoglobin 13.3 g/dL (12.9-16.9); Immature Granulocytes % 0.4 % (0-4); Lymphocytes # 0.7 K/mcL (0.6-4.6); Lymphocytes % 7.2 %; Mean Corpuscular HGB Conc 33.6 g/dL (31.6-35.5); Mean Corpuscular Hemoglobin 31.3 pg (28.0-33.3); Mean Corpuscular Volume 93.2 fL (83.0-100.0); Mean Platelet Volume 13.7 fL (9.4-12.4); Monocytes # 0.2 K/mcL (0.0-1.3); Monocytes % 1.6 %; Neutrophils # 8.9 K/mcL (1.6-8.9); Platelet Count 97 K/mcL (140-400); Red Blood Count 4.25 M/mcL (4.19-5.50); Red Cell Distribution Width 12.8 % (11.5-14.5); Segmented Neutrophils % 90.3 %; White Blood Count 9.9 K/mcL (4.3-11.1)
[2021-04-16 06:48] LABS: BUN/Creatinine Ratio 25 (6-26); Blood Urea Nitrogen 30 mg/dL (8-23); Calcium 9.3 mg/dL (8.6-10.3); Carbon Dioxide 25 mEq/L (23-29); Chloride 104 mEq/L (98-107); Glucose 147 mg/dL (70-105); Osmolality,Calculated 295 (280-300); Potassium 4.2 mEq/L (3.5-5.1); Sodium 138 mEq/L (136-145); eGFR For African Americans > 60 (> 60); eGFR For Non-African Americans 57 (> 60)
[2021-04-16] MEDS: Tiotropium 10 INH DOSE IH SCH (07:39)
[2021-04-16] MEDS: Aspirin Enteric Coated 81 MG Tablet PO SCH (07:48)
[2021-04-16] MEDS: lisinopriL 20 MG TABLET PO SCH (07:48)
[2021-04-16] MEDS: Ascorbic Acid 500 MG TABLET PO SCH (07:48)
[2021-04-16] MEDS: Cyanocobalamin (B-12) 1,000 MCG TABLET PO SCH (07:48)
[2021-04-16] MEDS ORDERED: AZELASTINE HCL BOTH EYES SCH (09:00)
[2021-04-16] MEDS: Budesonide/Formoterol 160/4.5 1 PUFF INH IH SCH ×2 (09:52→19:54)
[2021-04-16] MEDS: MOM Conc 10 ML UD.LIQ PO PRN (14:23)
[2021-04-16] MEDS ORDERED: Ipratropium/Albuterol Neb 3 ML IH PRN (17:26)
[2021-04-16] MEDS ORDERED: *HR* Heparin 5,000 UNIT/ML VIAL IVP ONE (18:30)
[2021-04-16] MEDS ORDERED: *HR* Heparin 5,000 UNIT/ML VIAL IVP PRN ×2 (18:30)
[2021-04-16] MEDS: Heparin 25,000UNIT/250ML 1/2NS 25,000 UNIT/250 ML IV.SOLN IVC SCH (19:41)
[2021-04-16] MEDS: Melatonin 3 MG TABLET PO SCH (19:47)
[2021-04-17 01:52] LABS: Basophils % 0.1 %; Eosinophils % 0.1 %; Immature Granulocytes % 0.5 % (0-4); Immature Platelets 16.7 % (1.1-6.1); Lymphocytes # 1.3 K/mcL (0.6-4.6); Lymphocytes % 9.9 %; Mean Corpuscular HGB Conc 32.4 g/dL (31.6-35.5); Mean Corpuscular Hemoglobin 30.4 pg (28.0-33.3); Mean Corpuscular Volume 93.7 fL (83.0-100.0); Mean Platelet Volume 13.4 fL (9.4-12.4); Monocytes # 0.8 K/mcL (0.0-1.3); Monocytes % 6.4 %; Neutrophils # 10.9 K/mcL (1.6-8.9); Platelet Count 100 K/mcL (140-400); Red Blood Count 3.95 M/mcL (4.19-5.50); Red Cell Distribution Width 12.7 % (11.5-14.5); White Blood Count 13.1 K/mcL (4.3-11.1)
[2021-04-17 02:05] LABS: Calcium 8.8 mg/dL (8.6-10.3); Magnesium 2.4 mg/dL (1.6-2.6); Potassium 4.5 mEq/L (3.5-5.1)
[2021-04-17 02:14] LABS: Troponin I 4.63 ng/mL (< 0.04)
[2021-04-17] MEDS: Ascorbic Acid 500 MG TABLET PO SCH (07:28)
[2021-04-17] MEDS: predniSONE 20 MG TABLET PO SCH (07:28)
[2021-04-17] MEDS: Aspirin Enteric Coated 81 MG Tablet PO SCH (07:28)
[2021-04-17] MEDS: lisinopriL 20 MG TABLET PO SCH (07:29)
[2021-04-17] MEDS: Cyanocobalamin (B-12) 1,000 MCG TABLET PO SCH (07:29)
[2021-04-17] MEDS: MOM Conc 10 ML UD.LIQ PO PRN (07:32)
[2021-04-17 09:46] LABS: Bilirubin,Urine Negative (Negative); Blood,Urine Negative (Negative); Clarity,Urine Clear (Clear); Color,Urine Yellow (Yellow); Glucose,Urine (UA) Normal (Normal); Ketones,Urine Negative (Negative); Leukocyte Esterase,Urine Negative (Negative); Nitrite,Urine Negative (Negative); PH,Urine 5.5 pH Units (5.0-8.0); Protein,Urine Trace mg/dL (Neg-Trace); Specific Gravity,Urine 1.026 (1.010-1.025); Urobilinogen,Urine Normal (Normal)
[2021-04-17] MEDS: Budesonide/Formoterol 160/4.5 1 PUFF INH IH SCH ×2 (10:43→19:48)
[2021-04-17] MEDS: Tiotropium 10 INH DOSE IH SCH (10:44)
[2021-04-17] MEDS: Heparin 25,000UNIT/250ML 1/2NS 25,000 UNIT/250 ML IV.SOLN IVC SCH (18:49)
[2021-04-17] MEDS: Melatonin 3 MG TABLET PO SCH (19:56)
[2021-04-17] MEDS: Nitroglycerin 0.4 MG TAB.SUBL SL PRN ×3 (21:40→22:30)
[2021-04-17] MEDS ORDERED: 0.9 % Sodium Chloride 250 ML IVC ONE (22:44)
[2021-04-17] MEDS ORDERED: Morphine Sulfate 2 MG/ML SYRINGE IVP ONE (22:58)
[2021-04-17] MEDS: Acetaminophen 325 MG TABLET PO PRN (23:44)
[2021-04-18] MEDS ORDERED: Acetaminophen 325 MG TABLET PO SCH
[2021-04-18 03:25] LABS: Basophils % 0.2 %
[2021-04-18 03:27] LABS: Hematocrit 37.1 % (37.5-50.1); Immature Granulocytes % 0.4 % (0-4); Immature Platelets 15.7 % (1.1-6.1); Lymphocytes # 2.2 K/mcL (0.6-4.6); Mean Corpuscular HGB Conc 32.3 g/dL (31.6-35.5); Mean Corpuscular Hemoglobin 30.8 pg (28.0-33.3); Mean Corpuscular Volume 95.1 fL (83.0-100.0); Mean Platelet Volume 13.5 fL (9.4-12.4); Monocytes # 0.9 K/mcL (0.0-1.3); Neutrophils # 11.2 K/mcL (1.6-8.9); Platelet Count 114 K/mcL (140-400); Red Cell Distribution Width 12.9 % (11.5-14.5); Segmented Neutrophils % 78.4 %; White Blood Count 14.3 K/mcL (4.3-11.1)
[2021-04-18 03:51] LABS: Calcium 8.9 mg/dL (8.6-10.3); Magnesium 2.7 mg/dL (1.6-2.6); Potassium 4.7 mEq/L (3.5-5.1)
[2021-04-18] MEDS ORDERED: Melatonin 3 MG TABLET PO ONE (04:19)
[2021-04-18] MEDS ORDERED: Acetaminophen 325 MG TABLET PO ONE (04:30)
[2021-04-18 04:37] LABS: Troponin I 5.62 ng/mL (< 0.04)
[2021-04-18] MEDS: Aspirin Enteric Coated 81 MG Tablet PO SCH (08:27)
[2021-04-18] MEDS: Cyanocobalamin (B-12) 1,000 MCG TABLET PO SCH (08:27)
[2021-04-18] MEDS: Ascorbic Acid 500 MG TABLET PO SCH (08:27)
[2021-04-18] MEDS: lisinopriL 20 MG TABLET PO SCH (08:28)
[2021-04-18] MEDS: predniSONE 20 MG TABLET PO SCH (08:28)
[2021-04-18] MEDS ORDERED: Bumetanide 1 MG TABLET PO SCH (09:00)
[2021-04-18] MEDS: Tiotropium 10 INH DOSE IH SCH (11:11)
[2021-04-18] MEDS: Budesonide/Formoterol 160/4.5 1 PUFF INH IH SCH ×2 (11:11→20:15)
[2021-04-18] MEDS: Isosorbide MONOnitrate (24 HR) 30 MG TAB.ER.24H PO SCH (12:08)
[2021-04-18] MEDS ORDERED: ISOVUE-370 200 ML INFUS..BTL ONE ×2 (15:28→16:22)
[2021-04-18] MEDS ORDERED: Heparin 1,000 UNITS/500 mL 500 ML ONE (15:28)
[2021-04-18] MEDS ORDERED: *HR* Heparin 10,000 UNIT/10 ML VIAL ONE (15:28)
[2021-04-18] MEDS ORDERED: Nitroglycerin 1,000 MCG/5 ML VIAL IV ONE (15:28)
[2021-04-18] MEDS ORDERED: 0.9 % Sodium Chloride 2,000 ML ONE (15:28)
[2021-04-18] MEDS: Albuterol 2.5 MG/3 ML NEBULIZER IH PRN (15:30)
[2021-04-18] MEDS: Heparin 25,000UNIT/250ML 1/2NS 25,000 UNIT/250 ML IV.SOLN IVC SCH ×2 (15:49→17:51)
[2021-04-18] MEDS ORDERED: *HR* FentaNYL (PF) 100 MCG/2 ML VIAL ONE (16:01)
[2021-04-18] MEDS ORDERED: *HR* Midazolam HCl 2 MG/2 ML VIAL ONE (16:01)
[2021-04-18] MEDS: Melatonin 3 MG TABLET PO SCH (19:57)
[2021-04-19 04:41] LABS: Basophils % 0.1 %; Hematocrit 31.7 % (37.5-50.1); Hemoglobin 10.6 g/dL (12.9-16.9); Immature Granulocytes % 0.4 % (0-4); Lymphocytes # 1.5 K/mcL (0.6-4.6); Lymphocytes % 13.5 %; Mean Corpuscular HGB Conc 33.4 g/dL (31.6-35.5); Mean Corpuscular Hemoglobin 31.3 pg (28.0-33.3); Mean Corpuscular Volume 93.5 fL (83.0-100.0); Mean Platelet Volume 13.9 fL (9.4-12.4); Monocytes # 0.8 K/mcL (0.0-1.3); Monocytes % 7.4 %; Neutrophils # 8.8 K/mcL (1.6-8.9); Platelet Count 109 K/mcL (140-400); Red Blood Count 3.39 M/mcL (4.19-5.50); Red Cell Distribution Width 13.1 % (11.5-14.5); Segmented Neutrophils % 78.6 %; White Blood Count 11.2 K/mcL (4.3-11.1)
[2021-04-19 04:59] LABS: BUN/Creatinine Ratio 30 (6-26); Blood Urea Nitrogen 38 mg/dL (8-23); Carbon Dioxide 28 mEq/L (23-29); Chloride 104 mEq/L (98-107); Potassium 4.4 mEq/L (3.5-5.1); Sodium 137 mEq/L (136-145); eGFR For African Americans > 60 (> 60)
[2021-04-19 05:00] LABS: Calcium 8.8 mg/dL (8.6-10.3); Glucose 120 mg/dL (70-105); Osmolality,Calculated 294 (280-300); eGFR For Non-African Americans 54 (> 60)
[2021-04-19] MEDS: Acetaminophen 325 MG TABLET PO PRN (06:22)
[2021-04-19] MEDS: lisinopriL 20 MG TABLET PO SCH (09:10)
[2021-04-19] MEDS: Aspirin Enteric Coated 81 MG Tablet PO SCH (09:10)
[2021-04-19] MEDS: Isosorbide MONOnitrate (24 HR) 30 MG TAB.ER.24H PO SCH (09:10)
[2021-04-19] MEDS: Ascorbic Acid 500 MG TABLET PO SCH (09:10)
[2021-04-19] MEDS: Cyanocobalamin (B-12) 1,000 MCG TABLET PO SCH (09:10)
[2021-04-19] MEDS: predniSONE 20 MG TABLET PO SCH (09:10)
[2021-04-19] MEDS: Albuterol 2.5 MG/3 ML NEBULIZER IH PRN ×2 (09:29→19:43)
[2021-04-19] MEDS: Tiotropium 10 INH DOSE IH SCH (09:29)
[2021-04-19] MEDS: Budesonide/Formoterol 160/4.5 1 PUFF INH IH SCH ×2 (09:29→19:43)
[2021-04-19] MEDS: Ranolazine 500 MG TAB.ER.12H PO SCH ×2 (12:13→20:11)
[2021-04-19] MEDS: *HR* Heparin 5,000 UNIT/ML VIAL SQ SCH (17:40)
[2021-04-19] MEDS: Melatonin 3 MG TABLET PO SCH (20:11)
[2021-04-20 00:55] LABS: Basophils % 0.2 %; Hemoglobin 10.1 g/dL (12.9-16.9); Immature Granulocytes % 0.7 % (0-4); Immature Platelets 15.2 % (1.1-6.1); Lymphocytes # 1.5 K/mcL (0.6-4.6); Lymphocytes % 13.3 %; Mean Corpuscular HGB Conc 32.6 g/dL (31.6-35.5); Mean Corpuscular Hemoglobin 30.7 pg (28.0-33.3); Mean Corpuscular Volume 94.2 fL (83.0-100.0); Monocytes # 0.7 K/mcL (0.0-1.3); Monocytes % 6.3 %; Neutrophils # 9.2 K/mcL (1.6-8.9); Platelet Count 92 K/mcL (140-400); Red Blood Count 3.29 M/mcL (4.19-5.50); Red Cell Distribution Width 13.2 % (11.5-14.5); Segmented Neutrophils % 79.5 %; White Blood Count 11.6 K/mcL (4.3-11.1)
[2021-04-20 01:14] LABS: Calcium 8.5 mg/dL (8.6-10.3); Potassium 5.1 mEq/L (3.5-5.1)
[2021-04-20] MEDS: *HR* Heparin 5,000 UNIT/ML VIAL SQ SCH ×2 (06:26→17:05)
[2021-04-20] MEDS: Aspirin Enteric Coated 81 MG Tablet PO SCH (07:55)
[2021-04-20] MEDS: Ranolazine 500 MG TAB.ER.12H PO SCH ×2 (07:55→21:48)
[2021-04-20] MEDS: Ascorbic Acid 500 MG TABLET PO SCH (07:56)
[2021-04-20] MEDS: Cyanocobalamin (B-12) 1,000 MCG TABLET PO SCH (07:56)
[2021-04-20] MEDS: Isosorbide MONOnitrate (24 HR) 30 MG TAB.ER.24H PO SCH (07:56)
[2021-04-20] MEDS ORDERED: Ringers Solution, Lactated 500 ML IVC SCH (08:00)
[2021-04-20] MEDS: Budesonide/Formoterol 160/4.5 1 PUFF INH IH SCH ×2 (09:29→21:24)
[2021-04-20] MEDS: Tiotropium 10 INH DOSE IH SCH (09:29)
[2021-04-20] MEDS: Albuterol 2.5 MG/3 ML NEBULIZER IH PRN ×3 (09:29→21:24)
[2021-04-20] MEDS: Melatonin 3 MG TABLET PO SCH (21:49)
[2021-04-21 03:18] LABS: Calcium 8.5 mg/dL (8.6-10.3); Potassium 4.6 mEq/L (3.5-5.1)
[2021-04-21] MEDS: *HR* Heparin 5,000 UNIT/ML VIAL SQ SCH (06:06)
[2021-04-21 08:10] VITALS: BP 180/63
[2021-04-21] MEDS: Aspirin Enteric Coated 81 MG Tablet PO SCH (09:26)
[2021-04-21] MEDS: Ranolazine 500 MG TAB.ER.12H PO SCH (09:26)
[2021-04-21] MEDS: Ascorbic Acid 500 MG TABLET PO SCH (09:26)
[2021-04-21] MEDS: Isosorbide MONOnitrate (24 HR) 30 MG TAB.ER.24H PO SCH (09:26)
[2021-04-21] MEDS: Cyanocobalamin (B-12) 1,000 MCG TABLET PO SCH (09:27)
[2021-04-21] MEDS: Budesonide/Formoterol 160/4.5 1 PUFF INH IH SCH (11:11)
[2021-04-21] MEDS: Tiotropium 10 INH DOSE IH SCH (11:11)
[2021-04-21] MEDS: Albuterol 2.5 MG/3 ML NEBULIZER IH PRN (11:11)
== END 2021-04-21 12:08 | disposition home or self-care (01) | DRG 281 ==
LOC: 2NNU 17:16 → EMEROOARM 17:16 → SUATTDRO 21:16 → 2NNU 21:49 → 2ANU 04-18 01:39
PROVIDERS: ADMIT Family Medicine; ATTEND Internal Medicine

== ENCOUNTER 2021-04-22 15:29 | Inpatient (IN) ==
[2021-04-22] MEDS ORDERED: methylPREDNISolone 125 MG/2 ML VIAL IVP ONE (15:37)
[2021-04-22] MEDS ORDERED: Ipratropium/Albuterol Neb 3 ML IH ONE (15:37)
[2021-04-22 16:08] LABS: Basophils % 0.3 %; Hemoglobin 9.8 g/dL (12.9-16.9); Red Cell Distribution Width 13.3 % (11.5-14.5)
[2021-04-22 16:10] LABS: Eosinophils # 0.1 K/mcL (0.0-0.6); Eosinophils % 0.7 %; Hematocrit 30.8 % (37.5-50.1); Immature Granulocytes % 0.5 % (0-4); Lymphocytes # 1.6 K/mcL (0.6-4.6); Lymphocytes % 15.2 %; Mean Corpuscular HGB Conc 31.8 g/dL (31.6-35.5); Mean Corpuscular Hemoglobin 30.7 pg (28.0-33.3); Mean Corpuscular Volume 96.6 fL (83.0-100.0); Mean Platelet Volume 13.8 fL (9.4-12.4); Monocytes # 0.9 K/mcL (0.0-1.3); Monocytes % 8.5 %; Neutrophils # 7.7 K/mcL (1.6-8.9); Platelet Count 112 K/mcL (140-400); Red Blood Count 3.19 M/mcL (4.19-5.50); Segmented Neutrophils % 74.8 %; White Blood Count 10.3 K/mcL (4.3-11.1)
[2021-04-22 16:30] LABS: Calcium 8.6 mg/dL (8.6-10.3); Potassium 4.8 mEq/L (3.5-5.1)
[2021-04-22 16:33] LABS: Troponin I 2.74 ng/mL (< 0.04)
[2021-04-22] MEDS ORDERED: Ondansetron 4 MG/2 ML VIAL IVP PRN (18:49)
[2021-04-22] MEDS ORDERED: Naloxone 0.4 MG/ML INJ IVP PRN (18:49)
[2021-04-22] MEDS ORDERED: Dextrose Gel 15 GM/37.5 ML TUBE PO PRN ×2 (18:51)
[2021-04-22] MEDS ORDERED: Nitroglycerin 0.4 MG TAB.SUBL SL PRN (18:51)
[2021-04-22] MEDS ORDERED: D5% in Water 1,000 ML IVC PRN (18:51)
[2021-04-22] MEDS ORDERED: *HR* Dextrose 50 % in Water (Vial) 50 ML VIAL IVP PRN (18:51)
[2021-04-22] MEDS ORDERED: Furosemide 20 MG/2 ML VIAL IVP ONE (18:53)
[2021-04-22] MEDS ORDERED: Albumin 25% 12.5gm/50mL 12.5 GM/50 ML IV.SOLN IVPB ONE (18:53)
[2021-04-22] MEDS: Ranolazine 500 MG TAB.ER.12H PO SCH (20:09)
[2021-04-22] MEDS: Insulin LISPRO 300 UNITS/3 ML VIAL SUBQ SCH (20:09)
[2021-04-22] MEDS: Melatonin 3 MG TABLET PO SCH (20:11)
[2021-04-22] MEDS: Budesonide/Formoterol 160/4.5 1 PUFF INH IH SCH (22:08)
[2021-04-22] MEDS: Ipratropium/Albuterol Neb 3 ML IH SCH (22:08)
[2021-04-23 01:54] LABS: Basophils % 0.1 %; Segmented Neutrophils % 91.9 %
[2021-04-23 01:56] LABS: Hematocrit 28.8 % (37.5-50.1); Hemoglobin 9.2 g/dL (12.9-16.9); Immature Granulocytes % 0.7 % (0-4); Immature Platelets 15.6 % (1.1-6.1); Lymphocytes # 0.5 K/mcL (0.6-4.6); Lymphocytes % 6.2 %; Mean Corpuscular HGB Conc 31.9 g/dL (31.6-35.5); Mean Corpuscular Hemoglobin 30.5 pg (28.0-33.3); Mean Corpuscular Volume 95.4 fL (83.0-100.0); Monocytes # 0.1 K/mcL (0.0-1.3); Monocytes % 1.1 %; Neutrophils # 6.7 K/mcL (1.6-8.9); Red Blood Count 3.02 M/mcL (4.19-5.50); Red Cell Distribution Width 13.2 % (11.5-14.5); White Blood Count 7.3 K/mcL (4.3-11.1)
[2021-04-23 02:04] LABS: INR 1.3
[2021-04-23 02:14] LABS: Platelet Count 96 K/mcL (140-400)
[2021-04-23 02:21] LABS: Troponin I 1.69 ng/mL (< 0.04)
[2021-04-23 02:27] LABS: Calcium 8.6 mg/dL (8.6-10.3); Magnesium 2.1 mg/dL (1.6-2.6); Phosphorous 2.6 mg/dL (2.7-4.5); Potassium 4.3 mEq/L (3.5-5.1)
[2021-04-23] MEDS: Ipratropium/Albuterol Neb 3 ML IH SCH ×4 (03:32→22:05)
[2021-04-23] MEDS ORDERED: MethylPREDNISolone 40 MG/ML VIAL IVP SCH (06:00)
[2021-04-23 06:23] LABS: Adenovirus Not Detected (Not Detect); Bordetella Pertussis Not Detected (Not Detect); Chlamydophila pneumoniae Not Detected (Not Detect); Coronavirus 229E Not Detected (Not Detect); Coronavirus HKU1 Not Detected (Not Detect); Coronavirus NL63 Not Detected (Not Detect); Coronavirus OC43 Not Detected (Not Detect); Human Metapneumovirus Not Detected (Not Detect); Human Rhinovirus/Enterovirus Not Detected (Not Detect); Influenza A Subtype 2009 H1 Not Detected (Not Detect); Influenza B Not Detected (Not Detect); Mycoplasma pneumoniae Not Detected (Not Detect); Parainfluenza Virus 1 Not Detected (Not Detect); Parainfluenza Virus 2 Not Detected (Not Detect); Parainfluenza Virus 3 Not Detected (Not Detect); Parainfluenza Virus 4 Not Detected (Not Detect); Respiratory Syncytial Virus Not Detected (Not Detect); SARS-CoV-2 Not Detected (Not Detect)
[2021-04-23] MEDS: Insulin LISPRO 300 UNITS/3 ML VIAL SUBQ SCH ×4 (07:28→19:49)
[2021-04-23 09:26] LABS: Bilirubin,Urine Negative (Negative); Blood,Urine Negative (Negative); Clarity,Urine Clear (Clear); Color,Urine Yellow (Yellow); Glucose,Urine (UA) Normal (Normal); Ketones,Urine Negative (Negative); Leukocyte Esterase,Urine Negative (Negative); Nitrite,Urine Negative (Negative); PH,Urine 5.5 pH Units (5.0-8.0); Protein,Urine Negative (Neg-Trace); Specific Gravity,Urine 1.024 (1.010-1.025); Urobilinogen,Urine Normal (Normal)
[2021-04-23 09:39] LABS: Sodium, Urine 35.6 mEq/L
[2021-04-23] MEDS ORDERED: Tiotropium 10 INH DOSE IH SCH (10:00)
[2021-04-23] MEDS: Aspirin 81 MG TAB.CHEW PO SCH (11:19)
[2021-04-23] MEDS: Isosorbide MONOnitrate (24 HR) 30 MG TAB.ER.24H PO SCH (11:20)
[2021-04-23] MEDS: Cyanocobalamin (B-12) 1,000 MCG TABLET PO SCH (11:22)
[2021-04-23] MEDS: Budesonide/Formoterol 160/4.5 1 PUFF INH IH SCH ×2 (11:25→22:06)
[2021-04-23] MEDS: Ranolazine 500 MG TAB.ER.12H PO SCH ×2 (11:26→19:48)
[2021-04-23 13:26] LABS: Hematocrit 31.1 % (37.5-50.1); Hemoglobin 10.2 g/dL (12.9-16.9)
[2021-04-23] MEDS: Melatonin 3 MG TABLET PO SCH (19:47)
[2021-04-24] MEDS: Ipratropium/Albuterol Neb 3 ML IH SCH ×2 (04:04→09:56)
[2021-04-24 04:21] LABS: Basophils % 0.1 %; Eosinophils % 0.1 %; Hematocrit 29.8 % (37.5-50.1); Hemoglobin 9.3 g/dL (12.9-16.9); Immature Granulocytes % 0.6 % (0-4); Lymphocytes # 1.6 K/mcL (0.6-4.6); Lymphocytes % 11.4 %; Mean Corpuscular HGB Conc 31.2 g/dL (31.6-35.5); Mean Corpuscular Hemoglobin 30.2 pg (28.0-33.3); Mean Corpuscular Volume 96.8 fL (83.0-100.0); Mean Platelet Volume 14.2 fL (9.4-12.4); Monocytes # 0.9 K/mcL (0.0-1.3); Monocytes % 6.3 %; Neutrophils # 11.1 K/mcL (1.6-8.9); Platelet Count 121 K/mcL (140-400); Red Blood Count 3.08 M/mcL (4.19-5.50); Red Cell Distribution Width 13.4 % (11.5-14.5); Segmented Neutrophils % 81.5 %
[2021-04-24 04:40] LABS: White Blood Count 13.6 K/mcL (4.3-11.1)
[2021-04-24 04:52] LABS: BUN/Creatinine Ratio 34 (6-26); Blood Urea Nitrogen 44 mg/dL (8-23); Calcium 8.5 mg/dL (8.6-10.3); Carbon Dioxide 24 mEq/L (23-29); Chloride 103 mEq/L (98-107); Glucose 109 mg/dL (70-105); Osmolality,Calculated 300 (280-300); Sodium 139 mEq/L (136-145); eGFR For African Americans > 60 (> 60); eGFR For Non-African Americans 52 (> 60)
[2021-04-24] MEDS: Isosorbide MONOnitrate (24 HR) 30 MG TAB.ER.24H PO SCH (08:47)
[2021-04-24] MEDS: Aspirin 81 MG TAB.CHEW PO SCH (08:48)
[2021-04-24] MEDS: Ranolazine 500 MG TAB.ER.12H PO SCH (08:48)
[2021-04-24] MEDS: Insulin LISPRO 300 UNITS/3 ML VIAL SUBQ SCH ×2 (08:48→12:27)
[2021-04-24] MEDS: Cyanocobalamin (B-12) 1,000 MCG TABLET PO SCH (08:48)
[2021-04-24] MEDS ORDERED: predniSONE 20 MG TABLET PO SCH (09:00)
[2021-04-24] MEDS: Budesonide/Formoterol 160/4.5 1 PUFF INH IH SCH (09:56)
[2021-04-24 10:30] VITALS: BP 121/61
== END 2021-04-24 12:55 | disposition home or self-care (01) | DRG 280 ==
LOC: 3BNU 15:29 → EMEROOARM 15:29 → 3BNU 18:00
PROVIDERS: ADMIT Internal Medicine; ATTEND Internal Medicine

== ENCOUNTER 2021-05-10 11:55 | Inpatient (IN) ==
[2021-05-10] MEDS ORDERED: Melatonin 3 MG TABLET PO PRN (15:49)
[2021-05-10] MEDS ORDERED: Mag Hydrox/Al Hydrox/Simeth 30 ML UDC PO PRN (15:49)
[2021-05-10] MEDS ORDERED: Ondansetron ODT 4 MG TAB.RAPDIS SL PRN (15:49)
[2021-05-10] MEDS ORDERED: Acetaminophen 325 MG TABLET PO PRN (15:49)
[2021-05-10] MEDS ORDERED: Naloxone 0.4 MG/ML INJ IVP PRN (15:49)
[2021-05-10] MEDS ORDERED: *HR* OxyCODONE Immed Rel 5 MG TABLET PO PRN (15:49)
[2021-05-10] MEDS ORDERED: Nitroglycerin 0.4 MG TAB.SUBL SL PRN (15:53)
[2021-05-10 17:39] LABS: ABG Base Excess 4 mEq/L (-2 to 3); ABG HCO3 28 mEq/L (21-27); ABG Oxygen Saturation 98 % (95-98); ABG PCO2 41 mmHg (35-45); ABG PH 7.44 pH Units (7.32-7.45); ABG PO2 106 mmHg (85-104); ABG TCO2 30 mEq/L (20-26)
[2021-05-11 05:01] LABS: Calcium 8.4 mg/dL (8.6-10.3); Magnesium 1.9 mg/dL (1.6-2.6); Potassium 4.4 mEq/L (3.5-5.1)
[2021-05-11 05:05] LABS: Hematocrit 33.7 % (37.5-50.1); Hemoglobin 10.8 g/dL (12.9-16.9); Immature Platelets 13.8 % (1.1-6.1); Mean Corpuscular Volume 96.8 fL (83.0-100.0); Mean Platelet Volume 13.8 fL (9.4-12.4); Red Blood Count 3.48 M/mcL (4.19-5.50); Red Cell Distribution Width 13.6 % (11.5-14.5); Troponin I 0.1 ng/mL (< 0.04); White Blood Count 8.4 K/mcL (4.3-11.1)
[2021-05-11] MEDS ORDERED: 0.9 % Sodium Chloride 500 ML IVC ONE (07:50)
[2021-05-11] MEDS: Aspirin Enteric Coated 81 MG Tablet PO SCH (08:50)
[2021-05-11] MEDS ORDERED: Ranolazine 500 MG TAB.ER.12H PO SCH (09:15)
[2021-05-11] MEDS ORDERED: Bumetanide 1 MG TABLET PO SCH (16:30)
[2021-05-11] MEDS: Budesonide/Formoterol 160/4.5 1 PUFF INH IH SCH (19:55)
[2021-05-11] MEDS: Ranolazine 500 MG TAB.ER.12H PO SCH (21:13)
[2021-05-12 06:54] LABS: Mean Platelet Volume 14.1 fL (9.4-12.4); Red Cell Distribution Width 13.4 % (11.5-14.5)
[2021-05-12 06:56] LABS: Hematocrit 35.6 % (37.5-50.1); Hemoglobin 11.3 g/dL (12.9-16.9); Immature Platelets 17.3 % (1.1-6.1); Mean Corpuscular HGB Conc 31.7 g/dL (31.6-35.5); Mean Corpuscular Hemoglobin 30.9 pg (28.0-33.3); Mean Corpuscular Volume 97.3 fL (83.0-100.0); Red Blood Count 3.66 M/mcL (4.19-5.50); White Blood Count 8.1 K/mcL (4.3-11.1)
[2021-05-12 07:21] LABS: BUN/Creatinine Ratio 23 (6-26); Blood Urea Nitrogen 31 mg/dL (8-23); Calcium 8.7 mg/dL (8.6-10.3); Carbon Dioxide 27 mEq/L (23-29); Chloride 104 mEq/L (98-107); Glucose 99 mg/dL (70-105); Osmolality,Calculated 291 (280-300); Potassium 4.5 mEq/L (3.5-5.1); Sodium 137 mEq/L (136-145); eGFR For African Americans > 60 (> 60); eGFR For Non-African Americans 50 (> 60)
[2021-05-12] MEDS ORDERED: Tiotropium 10 INH DOSE IH ONE (07:34)
[2021-05-12] MEDS: Budesonide/Formoterol 160/4.5 1 PUFF INH IH SCH (07:38)
[2021-05-12] MEDS ORDERED: Isosorbide MONOnitrate (24 HR) 60 MG TAB.ER.24H PO SCH (09:00)
[2021-05-12] MEDS ORDERED: Patient Taking Own Medication 1 EACH OP SCH (09:00)
[2021-05-12] MEDS ORDERED: lisinopriL 20 MG TABLET PO SCH (09:00)
[2021-05-12] MEDS: Aspirin Enteric Coated 81 MG Tablet PO SCH (09:30)
[2021-05-12] MEDS: Ranolazine 500 MG TAB.ER.12H PO SCH (09:32)
[2021-05-12] MEDS ORDERED: Tiotropium 10 INH DOSE IH SCH (10:00)
[2021-05-12 15:43] VITALS: BP 102/55; PULSE 66; TEMP 98.2; O2SAT 98
== END 2021-05-12 19:34 | disposition home or self-care (01) | DRG 190 ==
LOC: 3BNU → SUATTDRO 14:32
PROVIDERS: ADMIT Family Medicine; ATTEND Internal Medicine